=== PATIENT | female | born 1995 | race Hispanic/Latino ===

== ENCOUNTER 2022-03-24 09:02 | Emergency (ER) | payer BC, OTHER ==
--- NOTE | 2022-03-24 10:42 | RAD REPORT ---
EXAM DESCRIPTION: CT - Head Brain Wo Cont - 03/24/2022 10:37 am CLINICAL HISTORY: Dizziness, non-specific Headache, drowsiness COMPARISON: No comparisons TECHNIQUE: All CT scans are performed using dose optimization technique as appropriate and may inclu de automated exposure control or mA/KV adjustment according to patient size. FINDINGS: No intracranial hemorrhage, hydrocephalus or extra-axial fluid collection.No areas of brai n edema or evidence of midline shift. The paranasal sinuses and mastoids are clear. The calvarium is intact. IMPRESSION: No acute intracranial abnormality.
[2022-03-24] MEDS ORDERED: DIAZEPAM 5 MG TABLET ONE (10:57)
[2022-03-24] MEDS ORDERED: MECLIZINE HCL 12.5 MG TAB ONE ×2 (10:58→10:59)
--- NOTE | 2022-03-24 16:34 | RAD REPORT ---
EXAM DESCRIPTION: MRI - Brain Wo Cont - 03/24/2022 4:26 pm CLINICAL HISTORY: Dizziness COMPARISON: Head CT March 24, 2022 TECHNIQUE: Axial, sagittal, and coronal magnetic resonance images of the brain were obtained. FINDINGS: No significant abnormal signal within the brain Diffusion-weighted/ADC mapping does not reveal evidence of acute infarction. The ventricles are normal caliber. An extra-axial fluid collection is not noted. Fluid within the sinuses/mastoids is not seen IMPRESSION: No acute intracranial abnormality noted
--- NOTE | 2022-03-24 16:48 | ER ---
Nurse's Notes [facility] Name: Edith Holcomb Age: 26 yrs Sex: Female : 1995 Arrival Date: 03/24/2022 Time: 09:06 Bed 20 Private MD: Diagnosis: Other peripheral vertigo, unspecified ear Presentation: 03/24 09:14 Chief complaint: Patient states: she started feeling dizzy last night around 2130. ap3 patient states she thought she could go to bed and feel better this morning, however she reports that this morning she still felt dizzy. She also reports nausea and vomiting that began this morning along with weakness. Coronavirus screen: Client presents with at least one sign or symptom that may indicate coronavirus-19. Ebola Screen: No symptoms or risks identified at this time. Initial Sepsis Screen: Does the patient meet any 2 criteria? No. Patient's initial sepsis screen is negative. Does the patient have a suspected source of infection? No. Patient's initial sepsis screen is negative. Risk Assessment: Do you want to hurt yourself or someone else? Patient reports no desire to harm self or others. Onset of symptoms was March 23, 2022 at 21:30. 09:14 Method Of Arrival: Wheelchair ap3 09:14 Acuity: GIOVANNY 3 ap3 Triage Assessment: 09:19 General: Appears uncomfortable, Behavior is calm, cooperative, appropriate for age. ap3 General: Reports. Pain: Complains of pain in hip and lower back. Neuro: Level of Consciousness is awake, alert, obeys commands, Oriented to person, place, time, situation, Speech is normal. Neuro: Reports dizziness, weakness. Cardiovascular: Patient's skin is warm and dry. Respiratory: Airway is patent Respiratory effort is even, unlabored, Respiratory pattern is regular, symmetrical. GI: Reports nausea, vomiting. 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 - Social history:: Smoking status: Patient denies any tobacco usage or history of. Patient uses street drugs, marijuana. Screenin:20 Abuse screen: Denies threats or abuse. Nutritional screening: No deficits noted. ap3 Tuberculosis screening: No symptoms or risk factors identified. 17:20 Fall Risk None identified. iw Assessment: 09:33 General: Appears comfortable, Behavior is calm, cooperative. ha1 09:33 Pain: Denies pain. Neuro: Level of Consciousness is Oriented to Senior Instructor are equal ha1 bilaterally Moves all extremities. Gait is steady, Speech is normal, Pupils are PERRLA, Reports dizziness, after getting out of car this morning. was able to get to a sitting position. the dizziness has been going on since last night. . 09:33 Cardiovascular: Heart tones S1 S2 present. ha1 09:33 Respiratory: Airway is patent Respiratory effort is even, unlabored, Respiratory ha1 pattern is regular, symmetrical. GI: No signs and/or symptoms were reported involving the gastrointestinal system. : No signs and/or symptoms were reported regarding the genitourinary system. EENT: No signs and/or symptoms were reported regarding the EENT system. Derm: Skin is intact, is healthy with good turgor, Skin is pink, warm \T\ dry. Musculoskeletal: Range of motion: intact in all extremities. 10:30 Reassessment: Patient and/or family updated on plan of care and expected duration. Pain ha1 level reassessed. at bedside. 11:30 Reassessment: Patient and/or family updated on plan of care and expected duration. Pain ha1 level reassessed. Patient is alert, oriented x 3, equal unlabored respirations, skin warm/dry/pink. nausea has been decreased. 12:30 Reassessment: Patient and/or family updated on plan of care and expected duration. Pain ha1 level reassessed. Patient is alert, oriented x 3, equal unlabored respirations, skin warm/dry/pink. 13:30 Reassessment: Patient and/or family updated on plan of care and expected duration. Pain ha1 level reassessed. Patient states feeling better. Patient states symptoms have improved. 14:30 Reassessment: Patient and/or family updated on plan of care and expected duration. Pain ha1 level reassessed. Patient is alert, oriented x 3, equal unlabored respirations, skin warm/dry/pink. family member at bedside. awaiting on MRI. 15:30 Reassessment: Patient and/or family updated on plan of care and expected duration. Pain ha1 level reassessed. Patient is alert, oriented x 3, equal unlabored respirations, skin warm/dry/pink. 15:54 Reassessment: Pt sleeping, awaiting MRI. . aa5 16:48 Reassessment: Patient and/or family updated on plan of care and expected duration. Pain ha1 level reassessed. Patient is alert, oriented x 3, equal unlabored respirations, skin warm/dry/pink. Vital Signs: 09:14 BP 147 / 98; Pulse 72; Resp 18; Temp 97.9; Pulse Ox 98% ; Weight 93.44 kg; Height 5 ft. ap3 4 in. (162.56 cm); 10:20 BP 136 / 94; Pulse 72; Resp 16 S; Temp 98.2; Pulse Ox 100% on R/A; Weight 93.44 kg; ha1 Pain 0/10; 11:35 BP 141 / 87; Pulse 73; Resp 16 S; Pulse Ox 100% on R/A; ha1 12:25 BP 131 / 92; Pulse 65; Resp 18 S; Pulse Ox 100% on R/A; Pain 0/10; ha1 13:24 BP 132 / 90; Pulse 65; Resp 17 S; Pulse Ox 100% on R/A; Pain 0/10; ha1 14:15 BP 121 / 80; Pulse 69; Resp 16 S; Pulse Ox 100% on R/A; ha1 15:10 BP 130 / 90; Pulse 82; Resp 15 S; Pulse Ox 100% on R/A; ha1 15:14 BP 128 / 89; Pulse 83; Resp 16 S; Pulse Ox 100% on R/A; Pain 0/10; ha1 16:05 BP 129 / 86; Pulse 82; Resp 16 S; Pulse Ox 100% on R/A; ha1 17:00 BP 130 / 90; Pulse 80; Resp 15 S; Pulse Ox 100% on R/A; ha1 10:20 Body Mass Index 35.36 (93.44 kg, 162.56 cm) ha1 ED Course: 09:06 Patient arrived in ED. am2 09:11 Sarath Whipple MD is Attending Physician. kdr 09:16 Triage completed. ap3 09:20 Arm band placed on left wrist. ap3 09:33 Patient has correct armband on for positive identification. Bed in low position. Call ha1 light in reach. Side rails up X 1. Door closed. Lights dimmed. Warm blanket given. 09:54 Gay Calvert, RN is Primary Nurse. ha1 10:38 CT Head Brain wo Cont In Process Unspecified. EDMS 16:17 MRI - Brain Wo Cont In Process Unspecified. EDMS 17:19 No provider procedures requiring assistance completed. Patient did not have IV access iw during this emergency room visit. Administered Medications: 11:05 Drug: Meclizine 25 mg Route: PO; ha1 12:16 Follow up: Response: No adverse reaction; Nausea is decreased ha1 11:05 Drug: Valium (diazepam) 5 mg Route: PO; ha1 12:15 Follow up: Response: No adverse reaction; Anxiety decreased; RASS: Alert and Calm (0) ha1 Medication: 17:20 VIS not applicable for this client. iw Outcome: 16:47 Discharge ordered by MD. kdr 17:20 Discharged to home ambulatory, with family. iw 17:20 Condition: good 17:20 Discharge instructions given to patient, family, Instructed on discharge instructions, follow up and referral plans. medication usage, Demonstrated understanding of instructions, follow-up care, medications, Prescriptions given X 1. 17:20 Patient left the ED. iw Signatures: Dispatcher [employer] EDMS Sarath Whipple MD MD kdr Lizbeth Lombardi RN RN iw Laura Quigley RN RN aa5 Kellie Cline am2 Kellie Herrera RN RN ap3 Gay Calvert RN RN ha1 Corrections: (The following items were deleted from the chart) 11:29 09:33 Neuro: Level of Consciousness is Oriented to Senior Instructor are equal bilaterally Moves ha1 all extremities. Gait is steady, Speech is normal, Pupils are PERRLA, Reports dizziness, after getting out of car this morning. was able to get seated. . ha1 12:25 11:50 Reassessment: Patient and/or family updated on plan of care and expected ha1 duration. Pain level reassessed. Patient is alert, oriented x 3, equal unlabored respirations, skin warm/dry/pink. nausea has been decreased. ha1
--- NOTE | 2022-03-24 16:48 | EDPHYS ---
Physician Documentation [facility] Name: Edith Holcomb Age: 26 yrs Sex: Female : 1995 Arrival Date: 03/24/2022 Time: 09:06 Bed 20 Private MD: ED Physician Sarath Whipple HPI: 03/24 17:28 This 26 yrs old Female presents to ER via Wheelchair with complaints of kdr Dizziness. 17:28 The patient presents with dizziness, generalized weakness, lightheadedness, feeling off kdr balance, a sense of confusion, sense of spinning, vertigo. Onset: The symptoms/episode began/occurred last night. Context: occurred at home, occurred while the patient was at rest. Modifying factors: The symptoms are alleviated by nothing, the symptoms are aggravated by movement of head, standing up, changing position. Associated signs and symptoms: Pertinent positives: ataxia, nausea, numbness. Severity of symptoms: At their worst the symptoms were mild moderate just prior to arrival, in the emergency department the symptoms are unchanged. Patient's baseline: Neuro: alert and fully oriented, Motor: no deficits, Ambulation: walks without assistance, Speech: normal. The patient has not experienced similar symptoms in the past. Patient states that around 930 last night, she began to feel little dizzy. She subsequently went to bed hoping that she did feel better when she awakened in the morning. Unfortunately and this morning she still felt dizzy. As the day progressed, she continued with nausea and some vomiting that was the result of the worsening dizziness. She was especially weak and dizzy when walking. She felt like she could not walk in a straight line. She has not had this kind of issue before. She is otherwise in generally good health. She is not a smoker nor does she have any other risk factors (including hormone therapy and (that may precipitate a stroke.. 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 - Social history:: Smoking status: Patient denies any tobacco usage or history of. Patient uses street drugs, marijuana. ROS: 17:28 Constitutional: Negative for fever, chills, and weight loss, Eyes: Negative for injury, kdr pain, redness, and discharge, ENT: Negative for injury, pain, and discharge, Neck: Negative for injury, pain, and swelling, Cardiovascular: Negative for chest pain, palpitations, and edema, Respiratory: Negative for shortness of breath, cough, wheezing, and pleuritic chest pain, Abdomen/GI: Negative for abdominal pain, nausea, vomiting, diarrhea, and constipation, Back: Negative for injury and pain, MS/Extremity: Negative for injury and deformity, Skin: Negative for injury, rash, and discoloration, Psych: Negative for depression, anxiety, suicide ideation, homicidal ideation, and hallucinations, Allergy/Immunology: Negative for hives, rash, and allergies, Endocrine: Negative for neck swelling, polydipsia, polyuria, polyphagia, and marked weight changes, Hematologic/Lymphatic: Negative for swollen nodes, abnormal bleeding, and unusual bruising. 17:28 Neuro: Positive for altered mental status, dizziness. Exam: 17:28 Constitutional: This is a well developed, well nourished patient who is awake, alert, kdr and in no acute distress. Head/Face: Normocephalic, atraumatic. Eyes: Pupils equal round and reactive to light, extra-ocular motions intact. Lids and lashes normal. Conjunctiva and sclera are non-icteric and not injected. Cornea within normal limits. Periorbital areas with no swelling, redness, or edema. ENT: Nares patent. No nasal discharge, no septal abnormalities noted. Tympanic membranes are normal and external auditory canals are clear. Oropharynx with no redness, swelling, or masses, exudates, or evidence of obstruction, uvula midline. Mucous membranes moist. Chest/axilla: Normal chest wall appearance and motion. Nontender with no deformity. No lesions are appreciated. Cardiovascular: Regular rate and rhythm with a normal S1 and S2. No gallops, murmurs, or rubs. Normal PMI, no JVD. No pulse deficits. Respiratory: Lungs have equal breath sounds bilaterally, clear to auscultation and percussion. No rales, rhonchi or wheezes noted. No increased work of breathing, no retractions or nasal flaring. Abdomen/GI: Soft, non-tender, with normal bowel sounds. No distension or tympany. No guarding or rebound. No evidence of tenderness throughout. Back: No spinal tenderness. No costovertebral tenderness. Full range of motion. Skin: Warm, dry with normal turgor. Normal color with no rashes, no lesions, and no evidence of cellulitis. MS/ Extremity: Pulses equal, no cyanosis. Neurovascular intact. Full, normal range of motion. Psych: Awake, alert, with orientation to person, place and time. Behavior, mood, and affect are within normal limits. 17:28 Neuro: Orientation: is normal, Memory: Cranial nerves: no acute changes, Cerebellar function: is grossly normal, Motor: Sensation: is normal, seizure activity, is not displayed by the patient. Vital Signs: 09:14 BP 147 / 98; Pulse 72; Resp 18; Temp 97.9; Pulse Ox 98% ; Weight 93.44 kg; Height 5 ft. ap3 4 in. (162.56 cm); 10:20 BP 136 / 94; Pulse 72; Resp 16 S; Temp 98.2; Pulse Ox 100% on R/A; Weight 93.44 kg; ha1 Pain 0/10; 11:35 BP 141 / 87; Pulse 73; Resp 16 S; Pulse Ox 100% on R/A; ha1 12:25 BP 131 / 92; Pulse 65; Resp 18 S; Pulse Ox 100% on R/A; Pain 0/10; ha1 13:24 BP 132 / 90; Pulse 65; Resp 17 S; Pulse Ox 100% on R/A; Pain 0/10; ha1 14:15 BP 121 / 80; Pulse 69; Resp 16 S; Pulse Ox 100% on R/A; ha1 15:10 BP 130 / 90; Pulse 82; Resp 15 S; Pulse Ox 100% on R/A; ha1 15:14 BP 128 / 89; Pulse 83; Resp 16 S; Pulse Ox 100% on R/A; Pain 0/10; ha1 16:05 BP 129 / 86; Pulse 82; Resp 16 S; Pulse Ox 100% on R/A; ha1 17:00 BP 130 / 90; Pulse 80; Resp 15 S; Pulse Ox 100% on R/A; ha1 10:20 Body Mass Index 35.36 (93.44 kg, 162.56 cm) ha1 MDM: 16:47 Patient medically screened. kdr 17:32 Data reviewed: vital signs, nurses notes, lab test result(s), radiologic studies. kdr Counseling: I had a detailed discussion with the patient and/or guardian regarding: the historical points, exam findings, and any diagnostic results supporting the discharge/admit diagnosis, lab results, radiology results, the need for outpatient follow up. 03/24 10:19 Order name: CT Head Brain wo Cont; Complete Time: 12:23 kdr 03/24 13:55 Order name: MRI - Brain Wo Cont; Complete Time: 16:43 kdr Administered Medications: 11:05 Drug: Meclizine 25 mg Route: PO; ha1 12:16 Follow up: Response: No adverse reaction; Nausea is decreased ha1 11:05 Drug: Valium (diazepam) 5 mg Route: PO; ha1 12:15 Follow up: Response: No adverse reaction; Anxiety decreased; RASS: Alert and Calm (0) ha1 Disposition Summary: 03/24/22 16:47 Discharge Ordered Location: Home kdr Problem: new kdr Symptoms: have improved kdr Condition: Stable kdr Diagnosis - Other peripheral vertigo, unspecified ear kdr Followup: kdr - With: Private Physician - When: 2 - 3 days - Reason: If symptoms return, Further diagnostic work-up, Recheck today's complaints, Continuance of care, Re-evaluation by your physician Discharge Instructions: - Discharge Summary Sheet kdr - Vertigo, [id number] kdr - Dizziness, [id number] kdr Forms: - Medication Reconciliation Form kdr - Thank You Letter kdr - Work release form iw Prescriptions: - Meclizine 25 mg Oral Tablet - take 1 tablet by ORAL route every 8 hours As needed; 30 tablet; Refills: 0, kdr Product Selection Permitted Signatures: Dispatcher [employer] Sarath Amezcua MD MD kdr Kellie Herrera RN RN ap3 Gay Calvert RN RN ha1
[2022-03-24 17:58] VITALS: TEMP 98.2; O2SAT 100
[2022-03-24 18:17] VITALS: BP 130/90
== END 2022-03-24 17:20 | disposition home or self-care (01) ==
LOC: ER 09:02
DX: H81.399 Other peripheral vertigo, unspecified ear (principal); Z88.5 Allergy status to narcotic agent
CPT/HCPCS: 70450; 70551; 99283; J8597 ×2

== ENCOUNTER 2022-08-21 23:24 | Emergency (ER) | payer OTHER ==
--- OUTSIDE RECORDS SUMMARY | 2022-08-21 23:29 | XMS REPORT | Continuity of Care Document ---
:1995 Author Organization [facility] t Address [address] [place] [address] Care Team Providers Name Role Phone Emanuel Stanford Primary Care Physician Freddy Shah Attending Clinician Unavailable Sabrina Tomlinson Attending Clinician Unavailable Sammy Disla Attending Clinician SAMMY ROLON Attending Clinician Unavailable George Flores Admitting Clinician Unavailable Sabrina Tomlinson Admitting Clinician Unavailable Physician, No Primary or Family Admitting Clinician Unavaila ble Payers Payer Name Policy Type Policy Number Effective Date Expiration Date S ource Problems Condition Condition Condition Status Onset Resolution Last Treating Co mments Source Name Details Category Date Date Treatment Clinician Date Morbid Morbid Disease Active Univers obesity obesity 2-13 [place] index 00 [place] dical of of Branch 40.0-49.9 40.0-49.9 Encounter Encounter Disease Active Uni vers for tubal for tubal 2-13 ity of ligation ligation 00:00: [place] 00 Medical Branch Allergies, Adverse Reactions, Alerts Allergy Allergy Status Severity Reaction(s) Onset Inactive Treating Comm ents Source Name Type Date Date Clinician tramadol DA Active [facility] VOMITING 2021-08 [facility] - Clear 00:00: [address] tramadol DA Active [facility] VOMITING [facility] 7-02 Clear 00:00: [place] 00 [facility] Tramadol Propensi Active Nausea Severe Univer s ty to and/or 09-28 nausea ity of adverse Vomiting 00:00: and [place] reaction 00 vomiting Medica l s Branch TRAMADOL DRUG Active N/V Univers INGREDI 09-28 ity of 00:00: [place] 00 Medical [place] Social History Social Habit Start Date Stop Date Quantity Comments Source Exposure to 2022-04-11 2022-04-21 Not sure [facility] [place] [facility]-CoV-2 00:00:00 07:58:00 [place] [facility] (event) Branch Alcohol intake 2022-04-21 2022-04-21 Current University 00:00:00 00:00:00 non-drinker of [facility] alcohol (finding) Branch Tobacco use and 2017-09-28 2017-09-28 Smokeless tobacco Un iversity of exposure 00:00:00 00:00:00 non-user [facility] Sex Assigned At [birth year] [facility] y of 00:00:00 00:00:00 [facility] Smoking Status Start Date Stop Date Source Never smoked tobacco [facility] Medications Ordered Filled Start Stop Current Ordering Indication Dosage Frequency Signature Comments Components Source Medication Medication Date Date Medication? Clinician (SIG) Name Name predniSONE 2021- 60mg 60 mg, Univ ers (DELTASONE) 04-21 Oral, ity of tablet 60 14:30: 13:43 [place]CE, 1 [place] mg [place] :00 dose, On Medical 04/21/22 Branch at 0930, [place] HYDROcodone 2021- No 1{tbl} 1 tablet, Univers -acetaminop 04-21 Oral, ity of hen (NORCO) 14:30: 13:43 [place] 00 :00 dose, On Medica l tablet 1 04/21/22 Branc h tablet at 0930, Routine naproxen Yes [id number] 500mg Take 1 Un ganga (NAPROSYN) 04-21 tablet by ity of 500 mg 00:00: mouth in [place] tablet 00 the Medical morning Branch and 1 tablet in the evening. Take with meals. predniSONE Yes [id number] 60mg Take 3 U nivers 20 mg - tablets by ity of tablet 00:00: mouth [place] 00 every Medical morning. Branch acetaminoph 2021- No [id number] 1{tbl} Take 1 U nivers en-codeine 04-2110 tablet by ity of (TYLENOL-CO 00:00: 04:59 [place] DEINE #4) 00 :00 every 4 Medical 300-60 mg (four) Branch tablet hours as needed for Pain for up to 7 days. Indication s: acute pain methylPREDN 2021- No 84mg Take 21 Un ganga ISolone 10-11 tablets by ity o f (MEDROL, 00:00: 00:00 mouth [place] NATHALIA,) 4 mg 00 :00 SEE-INSTRU Med ical tablets CTIONS. Branch follow package directions Yes 2{tbl} Take 2 Unive rs multivitami 2-13 tablets by it y of n ( 10:49: mouth [place] VITAMIN) 52 daily. Medical tablet Branch HYDROcodone Yes 1{tbl} Take 1 Un ganga -acetaminop 2-13 tablet by ity of hen (NORCO) 00:00: mouth [place] 10-325 mg 00 every 6 Medical tablet (six) Branch hours as needed for Pain (scale 1-3), Pain (scale 4-6) or Pain (scale 7-10). ibuprofen Yes 800mg Take 1 Unive rs 800 mg 2-13 tablet by ity of tablet 00:00: mouth [place] 00 every 8 Medical (eight) Branch hours as needed for Pain (scale 1-3). Vital Signs Vital Name Observation Time Observation Value Comments Source Systolic blood 2022-04-21 13:01:00 148 mm[Hg] Univer sity of pressure [facility] Diastolic blood 2022-04-21 13:01:00 105 mm[Hg] [facility] Heart rate 2022-04-21 13:01:00 88 /min [facility] Body temperature 2022-04-21 13:01:00 37.17 Miguel Angel [facility] Respiratory rate 2022-04-21 13:01:00 16 /min [facility] Body height 2022-04-21 13:01:00 162.6 cm [facility] Body weight 2022-04-21 13:01:00 91.173 kg [facility] BMI 2022-04-21 13:01:00 34.50 kg/m2 [facility] Oxygen saturation in 2022-04-21 13:01:00 100 /min University Arterial blood by [facility] Pulse oximetry Branch Procedures Procedure Date / Time Performed Performing Clinician Caio mckeon [id number] 2022-08-02 00:00:00 MIRWA [facility] [id number] 2022-07-20 00:00:00 RATAL01 [facility] [id number] 2022-07-20 00:00:00 RATAL01 [facility] [id number] 2022-07-20 00:00:00 RATAL01 [facility] [id number] 2022-07-20 00:00:00 RATAL01 [facility] [id number] 2022-07-10 00:00:00 RATAL01 [facility] [id number] 2022-07-10 00:00:00 RATAL01 [facility] [id number] 2022-07-10 00:00:00 RATAL01 [facility] [id number] 2022-07-10 00:00:00 RATAL01 [facility] [id number] 2022-07-10 00:00:00 RATAL01 [facility] [id number] 2022-07-10 00:00:00 RATAL01 [facility] [id number] 2022-07-10 00:00:00 RATAL01 [facility] [id number] 2022-07-10 00:00:00 RATAL01 [facility] [id number] 2022-07-10 00:00:00 RATAL01 [facility] [id number] 2022-07-10 00:00:00 RATAL01 [facility] [id number] 2022-07-10 00:00:00 RATAL01 [facility] POCT TEST 2022-04-21 13:34:00 Sammy Rolon [facility] CONSENT/REFUSAL FOR 2022-04-21 12:48:45 Doctor Unassigned, No Un [facility] DIAGNOSIS AND Name [facility] TREATMENT Encounters Start End Encounter Admission Attending Care Care Encounter Source Date/Time Date/Time Type Type Clinicians Facility Department ID 2022-07-19 2022-08-03 Inpatient ALEX MejiaCL INTE [id number] [facility] 21:27:00 14:46:00 Freddy 67 [facility] 2022-07-10 2022-07-12 Inpatient ALEX YarbroughCL MAS [id number] [facility] 05:29:00 15:27:00 Freddy 65 [facility] 2022-05-09 2022-05-09 Outpatient ALEX LopezCL RMRI [id number] [facility] 11:34:00 11:34:00 Sabrina 77 [facility] 2022-04-21 2022-04-21 Emergency [facility] [id number] Univers 08:02:00 08:45:00 Sammy Dyer [facility] [id number] [facility] [id number] [facility] [id number] [place] [id number] Branch 2022-04-21 2022-04-21 Emergency X GISELA ROLON ERT [id number] Univers 08:02:00 08:45:00 SAMMY flores [facility] Results Test Description Test Time Test Comments Results Result Comments Source COMPREHENSIVE METABOLIC PANEL 2022-08-03 06:10:00 Test Item Value Reference Range Interpretation Comme nts SODIUM (test code = NA) 140 mEq/L 134-147 N POTASSIUM (test code = K) 4.3 mEq/L 3.4-5.0 N CHLORIDE (test code = CL) 106 mEq/L 100-108 N CARBON DIOXIDE (test code = 26 mEq/l 21-33 N CO2) ANION GAP (test code = GAP) 12 0-20 N GLUCOSE (test code = GLU) 112 mg/dL 70-110 H BLOOD UREA NITROGEN (test code 11 mg/dL 7-18 N = BUN) GLOMERULAR FILTRATION RATE 120.7 110-120 H T he Glomerular Filtration Rate is (test code = GFR) a calculat ed parameterbased on serum Creatinin e, patient age and sex. GFR values less than 60 mL/min/1.73 squ are meters are indicative ofCh ronic Kidney Disease. Values less than 15 mL/min/1.73squa re meters indicate Kidney failure. The calculation forGFR is based on the CKD-EPI (2020) calculat ion. This formulais race indifferent and is the recommended formula for GFRby the National [facility] for Adults.The GFR will not calculate if th e sex is unknown or if thepatien t's age is <18 years. CREATININE (test code = CREAT) 0.7 mg/dL 0.6-1.3 N TOTAL PROTEIN (test code = 7.1 g/dL 6.4-8.2 N PROT) ALBUMIN (test code = ALB) 2.80 g/dL 3.4-5.0 L CALCIUM (test code = CA) 9.1 mg/dL 8.0-10.5 N BILIRUBIN TOTAL (test code = 0.30 mg/dL 0.0-1.0 N BILT) SGOT/AST (test code = AST) 10 IUnit/L 15-37 L SGPT/ALT (test code = ALT) 12 IUnit/L 30-65 L ALKALINE PHOSPHATASE TOTAL 83 IUnit/L 20-125 N (test code = ALKP) [id number] 06:10:00 Test Item Value Reference Range Interpretation Comments PHOSPHOROUS (test code = PHOS) 3.0 MG/DL 2.5-4.9 N [id number] 06:10:00 Test Item Value Reference Range Interpretation Comments MAGNESIUM (test code = MAG) 1.90 mg/dL 1.80-2.40 N CALCIUM [id number] 06:10:00 Test Item Value Reference Range Interpretation Comments CALCIUM IONIZED (test code = ANNA) 1.19 MMOL/L 1.09-1.30 N CBC W/AUTO [id number] 05:56:00 Test Item Value Reference Range Interpretation Comments WHITE BLOOD CELL (test code = 10.2 x10 3/uL 4.5-11.0 N WBC) RED BLOOD CELL (test code = 3.19 x10 6/uL 3.54-5.02 L RBC) HEMOGLOBIN (test code = HGB) 9.4 g/dL 11.0-15.0 L HEMATOCRIT (test code = HCT) 29.7 % 33.0-45.0 L MEAN CELL VOLUME (test code = 93.1 fL 81.0-99.0 N MCV) MEAN CELL HGB (test code = MCH) 29.5 pg 27.0-33.0 N MEAN CELL HGB CONCETRATION 31.6 g/dL 33.0-37.0 L (test code = MCHC) RED CELL DISTRIBUTION WIDTH CV 14.6 % 11.5-14.5 H (test code = RDW) RED CELL DISTRIBUTION WIDTH SD 49.0 fL 37.0-54.0 N (test code = RDW-SD) PLATELET COUNT (test code = 533 x10 3/uL 150-400 H PLT) MEAN PLATELET VOLUME (test code 8.9 fL 7.0-9.0 N = MPV) NEUTROPHIL % (test code = NT%) 74.3 % 56.0-77.0 N IMMATURE GRANULOCYTE % (test 1.2 % 0.0-2.0 N code = IG%) LYMPHOCYTE % (test code = LY%) 17.6 % 14.0-32.0 N MONOCYTE % (test code = MO%) 6.0 % 4.8-9.0 N EOSINOPHIL % (test code = EO%) 0.4 % 0.3-3.7 N BASOPHIL % (test code = BA%) 0.5 % 0.0-2.0 N NUCLEATED RBC % (test code = 0.0 % 0-0 N NRBC%) NEUTROPHIL # (test code = NT#) 7.60 x10 3/uL 2.0-7.6 N IMMATURE GRANULOCYTE # (test 0.12 x10 3/uL 0.00-0.03 H code = IG#) LYMPHOCYTE # (test code = LY#) 1.80 x10 3/uL 1.0-3.8 N MONOCYTE # (test code = MO#) 0.61 x10 3/uL 0.1-0.8 N EOSINOPHIL # (test code = EO#) 0.04 x10 3/uL 0.0-0.2 N BASOPHIL # (test code = BA#) 0.05 x10 3/uL 0.0-0.2 N NUCLEATED RBC # (test code = 0.00 x10 3/uL 0.0-0.1 N NRBC#) MANUAL DIFF REQUIRED (test code NO = MDIFF) COMPREHENSIVE METABOLIC [id number] 05:13:00 Test Item Value Reference Range Interpretation Comments SODIUM (test code = 138 mEq/L 134-147 N NA) POTASSIUM (test code 4.7 mEq/L 3.4-5.0 N = K) CHLORIDE (test code 105 mEq/L 100-108 N = CL) CARBON DIOXIDE (test 24 mEq/l 21-33 N code = CO2) ANION GAP (test code 14 0-20 N = GAP) GLUCOSE (test code = 111 mg/dL 70-110 H GLU) BLOOD UREA NITROGEN 10 mg/dL 7-18 N (test code = BUN) GLOMERULAR 120.7 110-120 H The Glomerular FILTRATION RATE Filtration R ate is a (test code = GFR) calculated parameterbased on serum Creatinine, pat ient age and sex. GFR va luesless than 60 mL/min/ 1.73 square meters a re indicative ofCh ronic Kidney Disease. Values less than 15 mL/min/1.73squa re meters indicate Kidney failure. The calculation for GFR is based on the CK D-EPI (2020) calculat ion. This formulais race indifferent and is the recommended for chavez for GFRby the Natio nal Kidney Foundati on for Adults.The GFR will not calculate if th e sex is unknown or if thepatient's ag e is <18 years. CREATININE (test 0.7 mg/dL 0.6-1.3 N code = CREAT) TOTAL PROTEIN (test 6.9 g/dL 6.4-8.2 N code = PROT) ALBUMIN (test code = 2.70 g/dL 3.4-5.0 L ALB) CALCIUM (test code = 9.0 mg/dL 8.0-10.5 N CA) BILIRUBIN TOTAL 0.40 mg/dL 0.0-1.0 N (test code = BILT) SGOT/AST (test code 13 IUnit/L 15-37 L = AST) SGPT/ALT (test code 12 IUnit/L 30-65 L = ALT) ALKALINE PHOSPHATASE 81 IUnit/L 20-125 N TOTAL (test code = ALKP) [id number] 05:13:00 Test Item Value Reference Range Interpretation Comments PHOSPHOROUS (test code = PHOS) 3.3 MG/DL 2.5-4.9 N [id number] 05:13:00 Test Item Value Reference Range Interpretation Comments MAGNESIUM (test code = MAG) 2.04 mg/dL 1.80-2.40 N CALCIUM [id number] 05:13:00 Test Item Value Reference Range Interpretation Comments CALCIUM IONIZED (test code = ANNA) 1.13 MMOL/L 1.09-1.30 N CBC W/AUTO [id number] 04:41:00 Test Item Value Reference Range Interpretation Comments WHITE BLOOD CELL (test code = 10.8 x10 3/uL 4.5-11.0 N WBC) RED BLOOD CELL (test code = 3.00 x10 6/uL 3.54-5.02 L RBC) HEMOGLOBIN (test code = HGB) 9.0 g/dL 11.0-15.0 L HEMATOCRIT (test code = HCT) 27.2 % 33.0-45.0 L MEAN CELL VOLUME (test code = 90.7 fL 81.0-99.0 N MCV) MEAN CELL HGB (test code = MCH) 30.0 pg 27.0-33.0 N MEAN CELL HGB CONCETRATION 33.1 g/dL 33.0-37.0 N (test code = MCHC) RED CELL DISTRIBUTION WIDTH CV 14.6 % 11.5-14.5 H (test code = RDW) RED CELL DISTRIBUTION WIDTH SD 47.7 fL 37.0-54.0 N (test code = RDW-SD) PLATELET COUNT (test code = 469 x10 3/uL 150-400 H PLT) MEAN PLATELET VOLUME (test code 9.1 fL 7.0-9.0 H = MPV) NEUTROPHIL % (test code = NT%) 82.0 % 56.0-77.0 H IMMATURE GRANULOCYTE % (test 1.4 % 0.0-2.0 N code = IG%) LYMPHOCYTE % (test code = LY%) 11.1 % 14.0-32.0 L MONOCYTE % (test code = MO%) 4.6 % 4.8-9.0 L EOSINOPHIL % (test code = EO%) 0.5 % 0.3-3.7 N BASOPHIL % (test code = BA%) 0.4 % 0.0-2.0 N NUCLEATED RBC % (test code = 0.0 % 0-0 N NRBC%) NEUTROPHIL # (test code = NT#) 8.83 x10 3/uL 2.0-7.6 H IMMATURE GRANULOCYTE # (test 0.15 x10 3/uL 0.00-0.03 H code = IG#) LYMPHOCYTE # (test code = LY#) 1.20 x10 3/uL 1.0-3.8 N MONOCYTE # (test code = MO#) 0.50 x10 3/uL 0.1-0.8 N EOSINOPHIL # (test code = EO#) 0.05 x10 3/uL 0.0-0.2 N BASOPHIL # (test code = BA#) 0.04 x10 3/uL 0.0-0.2 N NUCLEATED RBC # (test code = 0.00 x10 3/uL 0.0-0.1 N NRBC#) MANUAL DIFF REQUIRED (test code NO = MDIFF) COMPREHENSIVE METABOLIC [id number] 05:37:00 Test Item Value Reference Range Interpretation Comments SODIUM (test code = 137 mEq/L 134-147 N NA) POTASSIUM (test code 4.4 mEq/L 3.4-5.0 N = K) CHLORIDE (test code 103 mEq/L 100-108 N = CL) CARBON DIOXIDE (test 24 mEq/l 21-33 N code = CO2) ANION GAP (test code 14 0-20 N = GAP) GLUCOSE (test code = 107 mg/dL 70-110 N GLU) BLOOD UREA NITROGEN 8 mg/dL 7-18 N (test code = BUN) GLOMERULAR 120.7 110-120 H The Glomerular FILTRATION RATE Filtration R ate is a (test code = GFR) calculated parameterbased on serum Creatinine, pat ient age and sex. GFR va luesless than 60 mL/min/ 1.73 square meters a re indicative ofCh ronic Kidney Disease. Values less than 15 mL/min/1.73squa re meters indicate Kidney failure. The calculation for GFR is based on the CK D-EPI (2020) calculat ion. This formulais race indifferent and is the recommended for chavez for GFRby the [facility] Kidney Foundati on for Adults.The GFR will not calculate if th e sex is unknown or if thepatient's ag e is <18 years. CREATININE (test 0.7 mg/dL 0.6-1.3 N code = CREAT) TOTAL PROTEIN (test 7.6 g/dL 6.4-8.2 N code = PROT) ALBUMIN (test code = 3.10 g/dL 3.4-5.0 L ALB) CALCIUM (test code = 9.3 mg/dL 8.0-10.5 N CA) BILIRUBIN TOTAL 0.40 mg/dL 0.0-1.0 (test code = BILT) SGOT/AST (test code 15 IUnit/L 15-37 N = AST) SGPT/ALT (test code 19 IUnit/L 30-65 L = ALT) ALKALINE PHOSPHATASE 92 IUnit/L 20-125 N TOTAL (test code = ALKP) [id number] 05:37:00 Test Item Value Reference Range Interpretation Comments PHOSPHOROUS (test code = PHOS) 3.6 MG/DL 2.5-4.9 N [id number] 05:37:00 Test Item Value Reference Range Interpretation Comments MAGNESIUM (test code = MAG) 2.00 mg/dL 1.80-2.40 N CALCIUM [id number] 05:37:00 Test Item Value Reference Range Interpretation Comments CALCIUM IONIZED (test code = ANNA) 1.18 MMOL/L 1.09-1.30 N CBC W/AUTO [id number] 04:56:00 Test Item Value Reference Range Interpretation Comments WHITE BLOOD CELL (test code = 13.2 x10 3/uL 4.5-11.0 H WBC) RED BLOOD CELL (test code = 3.38 x10 6/uL 3.54-5.02 L RBC) HEMOGLOBIN (test code = HGB) 10.0 g/dL 11.0-15.0 L HEMATOCRIT (test code = HCT) 30.8 % 33.0-45.0 L MEAN CELL VOLUME (test code = 91.1 fL 81.0-99.0 N MCV) MEAN CELL HGB (test code = 29.6 pg 27.0-33.0 N MCH) MEAN CELL HGB CONCETRATION 32.5 g/dL 33.0-37.0 L (test code = MCHC) RED CELL DISTRIBUTION WIDTH CV 14.4 % 11.5-14.5 N (test code = RDW) RED CELL DISTRIBUTION WIDTH SD 47.3 fL 37.0-54.0 N (test code = RDW-SD) PLATELET COUNT (test code = 507 x10 3/uL 150-400 H PLT) MEAN PLATELET VOLUME (test 8.9 fL 7.0-9.0 N code = MPV) NEUTROPHIL % (test code = NT%) 82.9 % 56.0-77.0 H IMMATURE GRANULOCYTE % (test 2.2 % 0.0-2.0 H code = IG%) LYMPHOCYTE % (test code = LY%) 10.3 % 14.0-32.0 L MONOCYTE % (test code = MO%) 3.4 % 4.8-9.0 L EOSINOPHIL % (test code = EO%) 0.8 % 0.3-3.7 N BASOPHIL % (test code = BA%) 0.4 % 0.0-2.0 N NUCLEATED RBC % (test code = 0.0 % 0-0 N NRBC%) NEUTROPHIL # (test code = NT#) 10.94 x10 3/uL 2.0-7.6 H IMMATURE GRANULOCYTE # (test 0.29 x10 3/uL 0.00-0.03 H code = IG#) LYMPHOCYTE # (test code = LY#) 1.36 x10 3/uL 1.0-3.8 N MONOCYTE # (test code = MO#) 0.45 x10 3/uL 0.1-0.8 N EOSINOPHIL # (test code = EO#) 0.10 x10 3/uL 0.0-0.2 N BASOPHIL # (test code = BA#) 0.05 x10 3/uL 0.0-0.2 N NUCLEATED RBC # (test code = 0.00 x10 3/uL 0.0-0.1 N NRBC#) MANUAL DIFF REQUIRED (test NO code = MDIFF) AB HERPES SIMPLEX 1 2 [id number] 01:07:00 Test Item Value Reference Range Interpretation Comments CSF HSV1 PCR (test Negative Negative code = [id number]) CSF HSV2 PCR (test Negative Negative Performed At: [facility] code = [id number]) [facility] P [id number] [address], [place] [id number] Earle S MD Ph:[phone] 3 - DUP VEIN [id number] 00:00:00 [facility] 1995 Sex: F Name: RAYMOND HUBBARD [facility] : 1995 Age/S: 27 / F [address] [place] [address] Unit #: [id number] Loc: [place] [address] Phys: Lashonda Ruiz MD Acct: [id number] Dis Date: Status: ADM IN PHONE #: [phone] Exam Date: 08/01/2022 0646 FAX #: [phone] Reason: NEW ONSET RASH EXAMS: CPT CODE: [id number] DUP VEIN SALOMÓN [id number] PROCEDURE INFORMATION: Exam: US Duplex Upper Extremity Veins Exam dateand time: 08/01/2022 6:28 AM Age: 27 years old Clinical indication: Other: Arm rash; Additional info: New onset rash TECHNIQUE: Imaging protocol: Real-time Duplex ultrasound of the Upper Extremities with 2-D velasquez scale, color Doppler flow and spectral waveform analysis with image documentation. Complete exam focused on the bilateral upper extremity veins. COMPARISON: CTA CHEST FOR PE 07/20/2022 2:46 AM FINDINGS: Right deep veins: Unremarkable. Axillary and brachial veins are patent throughout without thrombus. Normal Doppler waveforms. Normal compressibility and/or augmentation response. Visualized internal jugular and subclavian veins are patent. Right superficial veins: There is superficial thrombosis of the right cephalic vein. Left deep veins: Unremarkable. Axillary and brachial veins are patent throughout without thrombus. Normal Doppler waveforms. Normal compressibility and/or augmentation response. Visualized internal jugular and subclavian veins are patent. Left superficial veins: There is superficial thrombosis of the left cephalic vein. Soft tissues: Unremarkable. IMPRESSION: Superficial thrombosis of the bilateral cephalic vein. at 0654 Reported and signed by: Emmanuel Guzmán M.D CC: George Flores; Freddy Shah DO; Sabrina Tomlinson DO; Lashonda Ruiz MD Technologist: Delicia Rocha RDMS(AB)(OB) Trnscb Date/Time: 08/01/2022(653) [email or web address] Orig Print D/T: S: 08/01/2022 (653) Probe: PAGE 1 Signed ReportAB HERPES SIMPLEX 1 2 CSF 2022-07-31 13:58:00 Test Item Value Reference Range Interpretation Comments CSF HSV1 PCR TEST NOT See_Comment Test not perfor med. (test code = PERFORMED Deterioration o ccurred [id number]) during specimenhandlin g.Notified Yasmine Carrillo at a ccount 07/31/2022. [Au tomated message] The sy stem which generated this result transmitted ref erence range: (). The reference range was not u sed to interpret this result as normal/abnormal . CSF HSV2 PCR TEST NOT See_Comment Test not (test code = PERFORMED performedPerfor med At: [id number]) CETWE [facility] P [id number] [address] [place], [place] [id number] Earle S MD Ph:[phone] [Automated mess age] The system which ge nerated this result tra nsmitted reference range : (). The reference range was not used to interpr et this result as normal/abnormal . COMPREHENSIVE METABOLIC [id number] 05:23:00 Test Item Value Reference Range Interpretation Comments SODIUM (test code = 139 mEq/L 134-147 N NA) POTASSIUM (test code 4.6 mEq/L 3.4-5.0 N = K) CHLORIDE (test code 105 mEq/L 100-108 N = CL) CARBON DIOXIDE (test 24 mEq/l 21-33 N code = CO2) ANION GAP (test code 14 0-20 N = GAP) GLUCOSE (test code = 93 mg/dL 70-110 N GLU) BLOOD UREA NITROGEN 10 mg/dL 7-18 N (test code = BUN) GLOMERULAR 120.7 110-120 H The Glomerular FILTRATION RATE Filtration R ate is a (test code = GFR) calculated parameterbased on serum Creatinine, pat ient age and sex. GFR va luesless than 60 mL/min/ 1.73 square meters a re indicative ofCh ronic Kidney Disease. Values less than 15 mL/min/1.73squa re meters indicate Kidney failure. The calculation for GFR is based on the CK D-EPI (2020) calculat ion. This formulais race indifferent and is the recommended for chavez for GFRby the Natio nal Kidney Foundati on for Adults.The GFR will not calculate if th e sex is unknown or if thepatient's ag e is <18 years. CREATININE (test 0.7 mg/dL 0.6-1.3 N code = CREAT) TOTAL PROTEIN (test 6.8 g/dL 6.4-8.2 N code = PROT) ALBUMIN (test code = 2.70 g/dL 3.4-5.0 L ALB) CALCIUM (test code = 9.0 mg/dL 8.0-10.5 N CA) BILIRUBIN TOTAL 0.30 mg/dL 0.0-1.0 N (test code = BILT) SGOT/AST (test code 14 IUnit/L 15-37 L = AST) SGPT/ALT (test code 16 IUnit/L 30-65 L = ALT) ALKALINE PHOSPHATASE 88 IUnit/L 20-125 N TOTAL (test code = ALKP) [id number] 05:23:00 Test Item Value Reference Range Interpretation Comments PHOSPHOROUS (test code = PHOS) 4.3 MG/DL 2.5-4.9 N [id number] 05:23:00 Test Item Value Reference Range Interpretation Comments MAGNESIUM (test code = MAG) 2.04 mg/dL 1.80-2.40 N CALCIUM [id number] 05:23:00 Test Item Value Reference Range Interpretation Comments CALCIUM IONIZED (test code = ANNA) 1.16 MMOL/L 1.09-1.30 N CBC W/AUTO [id number] 05:08:00 Test Item Value Reference Range Interpretation Comments WHITE BLOOD CELL (test code = 10.5 x10 3/uL 4.5-11.0 N WBC) RED BLOOD CELL (test code = 3.10 x10 6/uL 3.54-5.02 L RBC) HEMOGLOBIN (test code = HGB) 9.1 g/dL 11.0-15.0 L HEMATOCRIT (test code = HCT) 28.2 % 33.0-45.0 L MEAN CELL VOLUME (test code = 91.0 fL 81.0-99.0 N MCV) MEAN CELL HGB (test code = MCH) 29.4 pg 27.0-33.0 N MEAN CELL HGB CONCETRATION 32.3 g/dL 33.0-37.0 L (test code = MCHC) RED CELL DISTRIBUTION WIDTH CV 14.3 % 11.5-14.5 N (test code = RDW) RED CELL DISTRIBUTION WIDTH SD 46.2 fL 37.0-54.0 N (test code = RDW-SD) PLATELET COUNT (test code = 450 x10 3/uL 150-400 H PLT) MEAN PLATELET VOLUME (test code 8.8 fL 7.0-9.0 N = MPV) NEUTROPHIL % (test code = NT%) 61.6 % 56.0-77.0 N IMMATURE GRANULOCYTE % (test 4.0 % 0.0-2.0 H code = IG%) LYMPHOCYTE % (test code = LY%) 24.1 % 14.0-32.0 N MONOCYTE % (test code = MO%) 8.3 % 4.8-9.0 N EOSINOPHIL % (test code = EO%) 1.6 % 0.3-3.7 N BASOPHIL % (test code = BA%) 0.4 % 0.0-2.0 N NUCLEATED RBC % (test code = 0.0 % 0-0 N NRBC%) NEUTROPHIL # (test code = NT#) 6.49 x10 3/uL 2.0-7.6 N IMMATURE GRANULOCYTE # (test 0.42 x10 3/uL 0.00-0.03 H code = IG#) LYMPHOCYTE # (test code = LY#) 2.54 x10 3/uL 1.0-3.8 N MONOCYTE # (test code = MO#) 0.88 x10 3/uL 0.1-0.8 H EOSINOPHIL # (test code = EO#) 0.17 x10 3/uL 0.0-0.2 N BASOPHIL # (test code = BA#) 0.04 x10 3/uL 0.0-0.2 N NUCLEATED RBC # (test code = 0.00 x10 3/uL 0.0-0.1 N NRBC#) MANUAL DIFF REQUIRED (test code NO = MDIFF) - MRI L-SPINE W/O [id number] 00:00:00 [facility] : 1995 Sex: F FAX: George Flores MD [phone] [place]: St: [facility] FAX: Kimberly Pond NP FAX: Freddy Patino DO [phone] FAX: Sabrina Sow DO [phone] Name: HAYDEE,RAYMOND [facility] : 1995 Age/S: 27/F [address] [place] [address] Unit #: [id number] Loc: [address] [address] Phys: Kimberly Pond NP Acct: [id number] Dis Date: Status: ADM IN PHONE #: [phone] Exam Date: 07/31/2022 1619 FAX #: [phone] Reason: worsening hip pain s/p lumbar surgery EXAMS: CPT CODE: [id number] MRI L-SPINE W/O CONT [id number] PROCEDURE INFORMATION: Exam: MR Lumbar Spine Without Contrast Exam date and time: 07/31/2022 3:40 PM Age: 27 years old Clinical indication: Other: Worsening hip pain S/P lumbar surgery TECHNIQUE: Imaging protocol: Magnetic resonance imaging of the lumbar spine without contrast. COMPARISON: MRI L-SPINE W WO CON 05/09/2022 11:58 AM FINDINGS: For counting purposes 5 non rib-bearing lumbar type vertebraare assumed. There has been interval surgery with placement of posterior bilateral pedicle screws likely joined by vertical plates at L4, L5 and S1. Postoperative fluid collections likely seromas are identified along the midline surgical tract between the posterior paraspinous muscles and in the adjacent subcutaneous soft tissues. The fluid collection between the paraspinous muscles measures approximately 9.5 cm craniocaudad approximately 2.5 cm transverse an approximate 1.7 cm AP. The fluid collection in the subcutaneous soft tissues measures approximately 12 cm craniocaudad approximately 5.3 cm tr ansverse and approximately 1.5 cm AP. These 2 fluid collections communicate with each other at midline extending from L2-L3 to L3-L4. No evidence for an associated infectious and/or inflammatory process is identified with these fluid collections, early infection can not be excluded. No evidence for abnormality is identified in the distal thoracic spinal cord. L1-L2 and L2-L3: There is no evidence forsignificant narrowing of the neural foramen or spinal canal. L3-L4: There is a broad shallow disc bulge with an annular fissure lateralizing to the right that results in moderate severe spinal canal stenosis with crowding of the nerve roots. There is moderate bilateral neural foramen stenosis. L4-L5: There has been interval left laminectomy with resection of the previously seen left disc protrusion with inferior extension. No evidence is identified to suggest recurrent and/or residual disc protrusion. The spinal canal has been decompressed by a left laminectomy. There is moderate bilateral neural foramen stenosis L5-S1: A left laminectomy decompresses the spinal canal. There is moderate bilateral neural foramen stenosis. PAGE 1 Signed Report (CONTINUED) FAX: George Flores MD [phone] [place]: St: ADM FAX: Kimberly Pond NP FAX: Freddy Patino DO [phone] FAX: Sabrina Sow DO [phone] Name: RAYMOND HUBBARD [facility] : 1995 Age/S: 27/F [address] [place] [address] Unit #: [id number] Loc: [address] [place] [address] Phys: Kimberly Pond NP Acct: [id number] Dis Date: Status: ADM IN PHONE #: [phone] Exam Date: 07/31/2022 1619 FAX #: [phone] Reason: worsening hip pain s/p lumbar surgery EXAMS: CPT CODE: [id number] MRI L-SPINE W/O CONT [id number] (Continued) IMPRESSION: 1. Intervalresection of a left L4-L5 disc protrusion without evidence to suggest recurrent and/or residual discmaterial. 2. At L3-L4 there is moderate severe spinal canal stenosis with crowding of the nerve roots. 3. Fluid collections, likely postoperative seromas or identified along the midline surgical tract between the posterior paraspinous muscles and in the adjacent subcutaneous soft tissues. No evidenceis identified associated with these fluid collections to suggest an infectious inflammatory process.Early infection can not be excluded. at 1747 Reported and signed by: Govind Cha M.D. CC: George Flores; Kimberly Pond JEWELRY CONSULTANT;Freddy Shah DO; Sabrina Tomlinson DO Technologist: RT Carol(Lydia)(CT) Trnscrd Date/Time/By: 07/31/2022 (1747) : By: [email or web address] Orig Print D/T: S: 07/31/2022 (6701) PAGE 2 Signed Report COMPREHENSIVE METABOLIC [id number] 05:43:00 Test Item Value Reference Range Interpretation Comments SODIUM (test code = 139 mEq/L 134-147 N NA) POTASSIUM (test code 4.3 mEq/L 3.4-5.0 N = K) CHLORIDE (test code 103 mEq/L 100-108 N = CL) CARBON DIOXIDE (test 26 mEq/l 21-33 N code = CO2) ANION GAP (test code 15 0-20 N = GAP) GLUCOSE (test code = 93 mg/dL 70-110 N GLU) BLOOD UREA NITROGEN 10 mg/dL 7-18 (test code = BUN) GLOMERULAR 102.9 110-120 L The Glomerular FILTRATION RATE Filtration R ate is a (test code = GFR) calculated parameterbased on serum Creatinine, pat ient age and sex. GFR va luesless than 60 mL/min/ 1.73 square meters a re indicative ofCh ronic Kidney Disease. Values less than 15 mL/min/1.73squa re meters indicate Kidney failure. The calculation for GFR is based on the CK D-EPI (2020) calculat ion. This formulais race indifferent and is the recommended for chavez for GFRby the [facility] on for Adults.The GFR will not calculate if th e sex is unknown or if thepatient's ag e is <18 years. CREATININE (test 0.8 mg/dL 0.6-1.3 N code = CREAT) TOTAL PROTEIN (test 7.2 g/dL 6.4-8.2 N code = PROT) ALBUMIN (test code = 2.90 g/dL 3.4-5.0 L ALB) CALCIUM (test code = 9.3 mg/dL 8.0-10.5 N CA) BILIRUBIN TOTAL 0.40 mg/dL 0.0-1.0 N (test code = BILT) SGOT/AST (test code 11 IUnit/L 15-37 L = AST) SGPT/ALT (test code 21 IUnit/L 30-65 L = ALT) ALKALINE PHOSPHATASE 95 IUnit/L 20-125 N TOTAL (test code = ALKP) [id number] 05:43:00 Test Item Value Reference Range Interpretation Comments PHOSPHOROUS (test code = PHOS) 4.6 MG/DL 2.5-4.9 N [id number] 05:43:00 Test Item Value Reference Range Interpretation Comments MAGNESIUM (test code = MAG) 2.09 mg/dL 1.80-2.40 N CALCIUM [id number] 05:43:00 Test Item Value Reference Range Interpretation Comments CALCIUM IONIZED (test code = ANNA) 1.21 MMOL/L 1.09-1.30 N CBC W/AUTO [id number] 05:17:00 Test Item Value Reference Range Interpretation Comments WHITE BLOOD CELL 12.0 x10 3/uL 4.5-11.0 H (test code = WBC) RED BLOOD CELL (test 3.29 x10 6/uL 3.54-5.02 L code = RBC) HEMOGLOBIN (test code 9.8 g/dL 11.0-15.0 L = HGB) HEMATOCRIT (test code 29.7 % 33.0-45.0 L = HCT) MEAN CELL VOLUME 90.3 fL 81.0-99.0 N (test code = MCV) MEAN CELL HGB (test 29.8 pg 27.0-33.0 N code = MCH) MEAN CELL HGB 33.0 g/dL 33.0-37.0 N CONCETRATION (test code = MCHC) RED CELL DISTRIBUTION 14.3 % 11.5-14.5 N WIDTH CV (test code = RDW) RED CELL DISTRIBUTION 45.8 fL 37.0-54.0 N WIDTH SD (test code = RDW-SD) PLATELET COUNT (test 439 x10 3/uL 150-400 H code = PLT) MEAN PLATELET VOLUME 8.7 fL 7.0-9.0 N (test code = MPV) NEUTROPHIL % (test 64.5 % 56.0-77.0 N code = NT%) LYMPHOCYTE % (test 20.1 % 14.0-32.0 N code = LY%) NEUTROPHIL # (test 7.73 x10 3/uL 2.0-7.6 H code = NT#) LYMPHOCYTE # (test 2.40 x10 3/uL 1.0-3.8 N code = LY#) MANUAL DIFF REQUIRED NO SLIDE R OC, (test code = MDIFF) CONSISTE NT WITH AUTO DIFF. IMMATURE GRANULOCYTE 5.1 % 0.0-2.0 H % (test code = IG%) MONOCYTE % (test code 7.9 % 4.8-9.0 N = MO%) EOSINOPHIL % (test 1.8 % 0.3-3.7 N code = EO%) BASOPHIL % (test code 0.6 % 0.0-2.0 N = BA%) NUCLEATED RBC % (test 0.0 % 0-0 N code = NRBC%) IMMATURE GRANULOCYTE 0.61 x10 3/uL 0.00-0.03 H # (test code = IG#) MONOCYTE # (test code 0.94 x10 3/uL 0.1-0.8 H = MO#) EOSINOPHIL # (test 0.22 x10 3/uL 0.0-0.2 H code = EO#) BASOPHIL # (test code 0.07 x10 3/uL 0.0-0.2 N = BA#) NUCLEATED RBC # (test 0.00 x10 3/uL 0.0-0.1 N code = NRBC#) COMPREHENSIVE METABOLIC [id number] 05:21:00 Test Item Value Reference Range Interpretation Comments SODIUM (test code = 135 mEq/L 134-147 N NA) POTASSIUM (test code 4.4 mEq/L 3.4-5.0 N = K) CHLORIDE (test code 108 mEq/L 100-108 N = CL) CARBON DIOXIDE (test 24 mEq/l 21-33 N code = CO2) ANION GAP (test code 7 0-20 N = GAP) GLUCOSE (test code = 94 mg/dL 70-110 N GLU) BLOOD UREA NITROGEN 6 mg/dL 7-18 L (test code = BUN) GLOMERULAR 120.7 110-120 H The Glomerular FILTRATION RATE Filtration R ate is a (test code = GFR) calculated parameterbased on serum Creatinine, pat ient age and sex. GFR va luesless than 60 mL/min/ 1.73 square meters a re indicative ofCh ronic Kidney Disease. Values less than 15 mL/min/1.73squa re meters indicate Kidney failure. The calculation for GFR is based on the CK D-EPI (2020) calculat ion. This formulais race indifferent and is the recommended for chavez for GFRby the [facility] n[facility] on for Adults.The GFR will not calculate if th e sex is unknown or if thepatient's ag e is <18 years. CREATININE (test 0.7 mg/dL 0.6-1.3 N code = CREAT) TOTAL PROTEIN (test 6.4 g/dL 6.4-8.2 code = PROT) ALBUMIN (test code = 2.60 g/dL 3.4-5.0 L ALB) CALCIUM (test code = 8.8 mg/dL 8.0-10.5 N CA) BILIRUBIN TOTAL 0.40 mg/dL 0.0-1.0 N (test code = BILT) SGOT/AST (test code 15 IUnit/L 15-37 N = AST) SGPT/ALT (test code 21 IUnit/L 30-65 L = ALT) ALKALINE PHOSPHATASE 90 IUnit/L 20-125 N TOTAL (test code = ALKP) [id number] 05:21:00 Test Item Value Reference Range Interpretation Comments PHOSPHOROUS (test code = PHOS) 4.1 MG/DL 2.5-4.9 N [id number] 05:21:00 Test Item Value Reference Range Interpretation Comments MAGNESIUM (test code = MAG) 1.98 mg/dL 1.80-2.40 N CALCIUM [id number] 05:21:00 Test Item Value Reference Range Interpretation Comments CALCIUM IONIZED (test code = ANNA) 1.03 MMOL/L 1.09-1.30 L CBC W/AUTO [id number] 04:55:00 Test Item Value Reference Range Interpretation Comments WHITE BLOOD CELL (test code = 10.0 x10 3/uL 4.5-11.0 N WBC) RED BLOOD CELL (test code = 3.04 x10 6/uL 3.54-5.02 L RBC) HEMOGLOBIN (test code = HGB) 8.8 g/dL 11.0-15.0 L HEMATOCRIT (test code = HCT) 28.2 % 33.0-45.0 L MEAN CELL VOLUME (test code = 92.8 fL 81.0-99.0 N MCV) MEAN CELL HGB (test code = MCH) 28.9 pg 27.0-33.0 N MEAN CELL HGB CONCETRATION 31.2 g/dL 33.0-37.0 L (test code = MCHC) RED CELL DISTRIBUTION WIDTH CV 14.1 % 11.5-14.5 N (test code = RDW) RED CELL DISTRIBUTION WIDTH SD 47.3 fL 37.0-54.0 N (test code = RDW-SD) PLATELET COUNT (test code = 376 x10 3/uL 150-400 N PLT) MEAN PLATELET VOLUME (test code 8.8 fL 7.0-9.0 N = MPV) NEUTROPHIL % (test code = NT%) 63.1 % 56.0-77.0 N IMMATURE GRANULOCYTE % (test 5.0 % 0.0-2.0 H code = IG%) LYMPHOCYTE % (test code = LY%) 21.8 % 14.0-32.0 N MONOCYTE % (test code = MO%) 7.8 % 4.8-9.0 N EOSINOPHIL % (test code = EO%) 1.8 % 0.3-3.7 N BASOPHIL % (test code = BA%) 0.5 % 0.0-2.0 N NUCLEATED RBC % (test code = 0.0 % 0-0 N NRBC%) NEUTROPHIL # (test code = NT#) 6.32 x10 3/uL 2.0-7.6 N IMMATURE GRANULOCYTE # (test 0.50 x10 3/uL 0.00-0.03 H code = IG#) LYMPHOCYTE # (test code = LY#) 2.18 x10 3/uL 1.0-3.8 N MONOCYTE # (test code = MO#) 0.78 x10 3/uL 0.1-0.8 N EOSINOPHIL # (test code = EO#) 0.18 x10 3/uL 0.0-0.2 N BASOPHIL # (test code = BA#) 0.05 x10 3/uL 0.0-0.2 N NUCLEATED RBC # (test code = 0.00 x10 3/uL 0.0-0.1 N NRBC#) MANUAL DIFF REQUIRED (test code NO = MDIFF) CBC W/AUTO [id number] 09:46:00 Test Item Value Reference Range Interpretation Comments WHITE BLOOD CELL 11.6 x10 3/uL 4.5-11.0 H (test code = WBC) RED BLOOD CELL (test 3.47 x10 6/uL 3.54-5.02 L code = RBC) HEMOGLOBIN (test code 10.1 g/dL 11.0-15.0 L = HGB) HEMATOCRIT (test code 31.4 % 33.0-45.0 L = HCT) MEAN CELL VOLUME 90.5 fL 81.0-99.0 N (test code = MCV) MEAN CELL HGB (test 29.1 pg 27.0-33.0 N code = MCH) MEAN CELL HGB 32.2 g/dL 33.0-37.0 L CONCETRATION (test code = MCHC) RED CELL DISTRIBUTION 13.9 % 11.5-14.5 N WIDTH CV (test code = RDW) RED CELL DISTRIBUTION 45.1 fL 37.0-54.0 N WIDTH SD (test code = RDW-SD) PLATELET COUNT (test 485 x10 3/uL 150-400 H code = PLT) MEAN PLATELET VOLUME 8.7 fL 7.0-9.0 N (test code = MPV) NEUTROPHIL % (test 60.3 % 56.0-77.0 N code = NT%) LYMPHOCYTE % (test 23.9 % 14.0-32.0 N code = LY%) NEUTROPHIL # (test 7.00 x10 3/uL 2.0-7.6 N code = NT#) LYMPHOCYTE # (test 2.78 x10 3/uL 1.0-3.8 N code = LY#) MANUAL DIFF REQUIRED NO SLIDE R OC, (test code = MDIFF) CONSISTE NT WITH AUTO DIFF. IMMATURE GRANULOCYTE 6.5 % 0.0-2.0 H % (test code = IG%) MONOCYTE % (test code 6.6 % 4.8-9.0 N = MO%) EOSINOPHIL % (test 2.2 % 0.3-3.7 N code = EO%) BASOPHIL % (test code 0.5 % 0.0-2.0 N = BA%) NUCLEATED RBC % (test 0.0 % 0-0 N code = NRBC%) IMMATURE GRANULOCYTE 0.76 x10 3/uL 0.00-0.03 H # (test code = IG#) MONOCYTE # (test code 0.77 x10 3/uL 0.1-0.8 N = MO#) EOSINOPHIL # (test 0.25 x10 3/uL 0.0-0.2 H code = EO#) BASOPHIL # (test code 0.06 x10 3/uL 0.0-0.2 N = BA#) NUCLEATED RBC # (test 0.00 x10 3/uL 0.0-0.1 N code = NRBC#) SED RATE [id number] 09:46:00 Test Item Value Reference Range Interpretation Comments SED RATE WESTERGREN (test code = 86 mm/hr 0-20 H SEDW) COMPREHENSIVE METABOLIC [id number] 07:35:00 Test Item Value Reference Range Interpretation Comments SODIUM (test code = 137 mEq/L 134-147 N NA) POTASSIUM (test code 4.1 mEq/L 3.4-5.0 N = K) CHLORIDE (test code 106 mEq/L 100-108 N = CL) CARBON DIOXIDE (test 26 mEq/l 21-33 N code = CO2) ANION GAP (test code 9 0-20 N = GAP) GLUCOSE (test code = 90 mg/dL 70-110 N GLU) BLOOD UREA NITROGEN 9 mg/dL 7-18 N (test code = BUN) GLOMERULAR 102.9 110-120 L The Glomerular FILTRATION RATE Filtration R ate is a (test code = GFR) calculated parameterbased on serum Creatinin e, patient age and sex. GFR valuesless than 60 mL/min/1.73 squ are meters are jessica cative ofChronic Kidne y Disease. Values less than 15 mL/min/1.73squa re meters indicate Kidney failure. The calculation for GFR is based on the CK D-EPI (2020) calculat ion. This formulais race indifferent and is the recommended for chavez for GFRby the [facility].The GFR will not calculate i f the sex is unknown or if thepatient's ag e is <18 years. CREATININE (test 0.8 mg/dL 0.6-1.3 N code = CREAT) TOTAL PROTEIN (test 7.7 g/dL 6.4-8.2 N code = PROT) ALBUMIN (test code = 2.90 g/dL 3.4-5.0 L ALB) CALCIUM (test code = 9.6 mg/dL 8.0-10.5 N CA) BILIRUBIN TOTAL 0.50 mg/dL 0.0-1.0 N (test code = BILT) SGOT/AST (test code 16 IUnit/L 15-37 N = AST) SGPT/ALT (test code 31 IUnit/L 30-65 N = ALT) ALKALINE PHOSPHATASE 111 IUnit/L 20-125 N TOTAL (test code = ALKP) [id number] 07:35:00 Test Item Value Reference Range Interpretation Comments PHOSPHOROUS (test code = PHOS) 3.9 MG/DL 2.5-4.9 N [id number] 07:35:00 Test Item Value Reference Range Interpretation Comments MAGNESIUM (test code = MAG) 2.19 mg/dL 1.80-2.40 N CALCIUM [id number] 07:35:00 Test Item Value Reference Range Interpretation Comments CALCIUM IONIZED (test code = ANNA) 1.17 MMOL/L 1.09-1.30 N C REACTIVE [id number] 07:28:00 Test Item Value Reference Range Interpretation Comments C REACTIVE PROTEIN (test code = 52.0 mg/L <10.0 H CRP) CSF CELL [id number] 14:52:00 Test Item Value Reference Range Interpretation Comments CSF TUBE # (test STERILE CONTAINER code = BFCSFT) CSF APPEARANCE CLEAR CLEAR (test code = APPCSF) CSF WBC (test code 56 MM3 0-5 H = WBCCSF) CSF RBC (test code 2 MM3 0-0 H = RBCCSF) CSF POLY (test code 33 % 0-7 H TOTAL CE LLS = POLYCSF) COUNTED 61 CSF LYMPHOCYTE 59 % 28-96 N TOTAL CELLS (test code = COUNTED 61 LYMPHCSF) CSF MONOCYTE (test 8 % 16-56 L TOTAL MIGUEL ANGEL LS code = MONOCSF) COUNTED 61 CSF EOSINOPHIL 0 % (test code = EOSCSF) CSF BASOPHIL (test 0 % code = BASOCSF) CSF MACROPHAGE 0 % (test code = MACCSF) CSF [id number] 11:29:00 Test Item Value Reference Range Interpretation Comments CSF COLOR (test code = COLORLESS COLORLESS COLCSF) CSF TUBE # (test code = STERILE CONTAINER TUBECSF) CSF GLUCOSE (test code = 51 MG/DL 40-80 N GLUCSF) CSF TOTAL PROTEIN (test 39.7 mg/dL 15-45 N code = PROTCSF) CBC W/AUTO [id number] 05:42:00 Test Item Value Reference Range Interpretation Comments WHITE BLOOD CELL 9.5 x10 3/uL 4.5-11.0 N (test code = WBC) RED BLOOD CELL (test 3.67 x10 6/uL 3.54-5.02 N code = RBC) HEMOGLOBIN (test code 10.6 g/dL 11.0-15.0 L = HGB) HEMATOCRIT (test code 32.9 % 33.0-45.0 L = HCT) MEAN CELL VOLUME 89.6 fL 81.0-99.0 N (test code = MCV) MEAN CELL HGB (test 28.9 pg 27.0-33.0 N code = MCH) MEAN CELL HGB 32.2 g/dL 33.0-37.0 L CONCETRATION (test code = MCHC) RED CELL DISTRIBUTION 13.4 % 11.5-14.5 N WIDTH CV (test code = RDW) RED CELL DISTRIBUTION 43.9 fL 37.0-54.0 N WIDTH SD (test code = RDW-SD) PLATELET COUNT (test 468 x10 3/uL 150-400 H code = PLT) MEAN PLATELET VOLUME 8.8 fL 7.0-9.0 N (test code = MPV) NEUTROPHIL % (test 62.7 % 56.0-77.0 N code = NT%) LYMPHOCYTE % (test 20.7 % 14.0-32.0 N code = LY%) NEUTROPHIL # (test 5.95 x10 3/uL 2.0-7.6 N code = NT#) LYMPHOCYTE # (test 1.97 x10 3/uL 1.0-3.8 N code = LY#) MANUAL DIFF REQUIRED NO SLIDE R OC, (test code = MDIFF) CONSISTE NT WITH AUTO DIFF. IMMATURE GRANULOCYTE 6.5 % 0.0-2.0 H % (test code = IG%) MONOCYTE % (test code 7.0 % 4.8-9.0 N = MO%) EOSINOPHIL % (test 2.5 % 0.3-3.7 N code = EO%) BASOPHIL % (test code 0.6 % 0.0-2.0 N = BA%) NUCLEATED RBC % (test 0.0 % 0-0 N code = NRBC%) IMMATURE GRANULOCYTE 0.62 x10 3/uL 0.00-0.03 H # (test code = IG#) MONOCYTE # (test code 0.67 x10 3/uL 0.1-0.8 N = MO#) EOSINOPHIL # (test 0.24 x10 3/uL 0.0-0.2 H code = EO#) BASOPHIL # (test code 0.06 x10 3/uL 0.0-0.2 N = BA#) NUCLEATED RBC # (test 0.00 x10 3/uL 0.0-0.1 N code = NRBC#) COMPREHENSIVE METABOLIC [id number] 05:24:00 Test Item Value Reference Range Interpretation Comments SODIUM (test code = 139 mEq/L 134-147 N NA) POTASSIUM (test code 4.3 mEq/L 3.4-5.0 N = K) CHLORIDE (test code 104 mEq/L 100-108 N = CL) CARBON DIOXIDE (test 27 mEq/l 21-33 N code = CO2) ANION GAP (test code 12 0-20 N = GAP) GLUCOSE (test code = 95 mg/dL 70-110 N GLU) BLOOD UREA NITROGEN 8 mg/dL 7-18 N (test code = BUN) GLOMERULAR 102.9 110-120 L The Glomerular FILTRATION RATE Filtration R ate is a (test code = GFR) calculated parameterbased on serum Creatinin e, patient age and sex. GFR valuesless than 60 mL/min/1.73 squ are meters are jessica cative ofChronic Kidne y Disease. Values less than 15 mL/min/1.73squa re meters indicate Kidney failure. The calculation for GFR is based on the CK D-EPI (2020) calculat ion. This formulais race indifferent and is the recommended for chavez for GFRby the [facility] Foundati on for Adults.The GFR will not calculate i f the sex is unknown or if thepatient's ag e is <18 years. CREATININE (test 0.8 mg/dL 0.6-1.3 N code = CREAT) TOTAL PROTEIN (test 7.7 g/dL 6.4-8.2 N code = PROT) ALBUMIN (test code = 2.80 g/dL 3.4-5.0 L ALB) CALCIUM (test code = 9.5 mg/dL 8.0-10.5 N CA) BILIRUBIN TOTAL 0.40 mg/dL 0.0-1.0 N (test code = BILT) SGOT/AST (test code 15 IUnit/L 15-37 N = AST) SGPT/ALT (test code 34 IUnit/L 30-65 N = ALT) ALKALINE PHOSPHATASE 120 IUnit/L 20-125 N TOTAL (test code = ALKP) [id number] 05:24:00 Test Item Value Reference Range Interpretation Comments PHOSPHOROUS (test code = PHOS) 3.4 MG/DL 2.5-4.9 N [id number] 05:24:00 Test Item Value Reference Range Interpretation Comments MAGNESIUM (test code = MAG) 2.17 mg/dL 1.80-2.40 N CALCIUM [id number] 05:24:00 Test Item Value Reference Range Interpretation Comments CALCIUM IONIZED (test code = ANNA) 1.20 MMOL/L 1.09-1.30 N AB HERPES SIMPLEX 1 2 [id number] 05:11:00 Test Item Value Reference Range Interpretation Comments CSF HSV1 PCR (test Negative Negative code = [id number]) CSF HSV2 PCR (test Negative Negative Performed At: [facility] code = [id number]) [facility] [id number] [id number] Ian Dyer MD Ph:[phone] CBC W/AUTO [id number] 05:58:00 Test Item Value Reference Range Interpretation Comments WHITE BLOOD CELL 13.3 x10 3/uL 4.5-11.0 H (test code = WBC) RED BLOOD CELL (test 3.18 x10 6/uL 3.54-5.02 L code = RBC) HEMOGLOBIN (test code 9.3 g/dL 11.0-15.0 L = HGB) HEMATOCRIT (test code 28.2 % 33.0-45.0 L = HCT) MEAN CELL VOLUME 88.7 fL 81.0-99.0 N (test code = MCV) MEAN CELL HGB (test 29.2 pg 27.0-33.0 N code = MCH) MEAN CELL HGB 33.0 g/dL 33.0-37.0 N CONCETRATION (test code = MCHC) RED CELL DISTRIBUTION 13.4 % 11.5-14.5 N WIDTH CV (test code = RDW) RED CELL DISTRIBUTION 43.5 fL 37.0-54.0 N WIDTH SD (test code = RDW-SD) PLATELET COUNT (test 377 x10 3/uL 150-400 N code = PLT) MEAN PLATELET VOLUME 8.8 fL 7.0-9.0 N (test code = MPV) NEUTROPHIL % (test 59.4 % 56.0-77.0 N code = NT%) LYMPHOCYTE % (test 23.3 % 14.0-32.0 N code = LY%) NEUTROPHIL # (test 7.90 x10 3/uL 2.0-7.6 H code = NT#) LYMPHOCYTE # (test 3.10 x10 3/uL 1.0-3.8 N code = LY#) MANUAL DIFF REQUIRED NO SLIDE R EVIEWED, (test code = MDIFF) CONSISTE NT WITH AUTO DIFF. IMMATURE GRANULOCYTE 5.7 % 0.0-2.0 H % (test code = IG%) MONOCYTE % (test code 9.5 % 4.8-9.0 H = MO%) EOSINOPHIL % (test 1.7 % 0.3-3.7 N code = EO%) BASOPHIL % (test code 0.4 % 0.0-2.0 N = BA%) NUCLEATED RBC % (test 0.0 % 0-0 N code = NRBC%) IMMATURE GRANULOCYTE 0.76 x10 3/uL 0.00-0.03 H # (test code = IG#) MONOCYTE # (test code 1.27 x10 3/uL 0.1-0.8 H = MO#) EOSINOPHIL # (test 0.22 x10 3/uL 0.0-0.2 H code = EO#) BASOPHIL # (test code 0.05 x10 3/uL 0.0-0.2 N = BA#) NUCLEATED RBC # (test 0.00 x10 3/uL 0.0-0.1 N code = NRBC#) BASIC METABOLIC [id number] 05:55:00 Test Item Value Reference Range Interpretation Comments SODIUM (test code = 139 mEq/L 134-147 N NA) POTASSIUM (test code 3.9 mEq/L 3.4-5.0 N = K) CHLORIDE (test code 103 mEq/L 100-108 N = CL) CARBON DIOXIDE (test 26 mEq/l 21-33 N code = CO2) ANION GAP (test code 13 0-20 N = GAP) GLUCOSE (test code = 93 mg/dL 70-110 N GLU) BLOOD UREA NITROGEN 9 mg/dL 7-18 N (test code = BUN) GLOMERULAR 120.7 110-120 H The Glomerular FILTRATION RATE Filtration R ate is a (test code = GFR) calculated parameterbased on serum Creatinine, pat ient age and sex. GFR va luesless than 60 mL/min/ 1.73 square meters a re indicative ofCh ronic Kidney Disease. Values less than 15 mL/min/1.73squa re meters indicate Kidney failure. The calculation forGFR is based on the CKD-EPI (2020) calculat ion. This formulais race indifferent and is the recommended for chavez for GFRby the [facility] for Ad[facility].The GFR will not calculate if th e sex is unknown or if thepatient's ag e is <18 years. CREATININE (test 0.7 mg/dL 0.6-1.3 N code = CREAT) CALCIUM (test code = 8.8 mg/dL 8.0-10.5 N CA) HEPATIC FUNCTION [id number] 12:40:00 Test Item Value Reference Range Interpretation Comments TOTAL PROTEIN (test code = PROT) 7.1 g/dL 6.4-8.2 N ALBUMIN (test code = ALB) 2.60 g/dL 3.4-5.0 L BILIRUBIN TOTAL (test code = 0.50 mg/dL 0.0-1.0 N BILT) BILIRUBIN DIRECT (test code = 0.30 MG/DL 0.0-0.30 N BILD) BILIRUBIN INDIRECT (test code = 0.20 MG/DL BILIND) SGOT/AST (test code = AST) 15 IUnit/L 15-37 N SGPT/ALT (test code = ALT) 48 IUnit/L 30-65 ALKALINE PHOSPHATASE TOTAL (test 145 IUnit/L 20-125 H code = ALKP) COMMENTS: can add tp specimen in labBASIC METABOLIC [id number] 04:43:00 Test Item Value Reference Range Interpretation Comments SODIUM (test code = 139 mEq/L 134-147 N NA) POTASSIUM (test code 3.7 mEq/L 3.4-5.0 N = K) CHLORIDE (test code 102 mEq/L 100-108 N = CL) CARBON DIOXIDE (test 27 mEq/l 21-33 N code = CO2) ANION GAP (test code 13 0-20 N = GAP) GLUCOSE (test code = 99 mg/dL 70-110 N GLU) BLOOD UREA NITROGEN 11 mg/dL 7-18 N (test code = BUN) GLOMERULAR 102.9 110-120 L The Glomerular FILTRATION RATE Filtration R ate is a (test code = GFR) calculated parameterbased on serum Creatinine, pat ient age and sex. GFR va luesless than 60 mL/min/ 1.73 square meters a re indicative ofCh ronic Kidney Disease. Values less than 15 mL/min/1.73squa re meters indicate Kidney failure. The calculation forGFR is based on the CKD-EPI (2020) calculat ion. This formulais race indifferent and is the recommended for chavez for GFRby the [facility] for Ad[facility].The GFR will not calculate if th e sex is unknown or if thepatient's ag e is <18 years. CREATININE (test 0.8 mg/dL 0.6-1.3 N code = CREAT) CALCIUM (test code = 8.6 mg/dL 8.0-10.5 N CA) CBC W/AUTO [id number] 04:27:00 Test Item Value Reference Range Interpretation Comments WHITE BLOOD CELL (test code = 14.2 x10 3/uL 4.5-11.0 H WBC) RED BLOOD CELL (test code = 3.29 x10 6/uL 3.54-5.02 L RBC) HEMOGLOBIN (test code = HGB) 9.5 g/dL 11.0-15.0 L HEMATOCRIT (test code = HCT) 29.3 % 33.0-45.0 L MEAN CELL VOLUME (test code = 89.1 fL 81.0-99.0 N MCV) MEAN CELL HGB (test code = MCH) 28.9 pg 27.0-33.0 N MEAN CELL HGB CONCETRATION 32.4 g/dL 33.0-37.0 L (test code = MCHC) RED CELL DISTRIBUTION WIDTH CV 13.4 % 11.5-14.5 N (test code = RDW) RED CELL DISTRIBUTION WIDTH SD 43.9 fL 37.0-54.0 N (test code = RDW-SD) PLATELET COUNT (test code = 362 x10 3/uL 150-400 N PLT) MEAN PLATELET VOLUME (test code 9.0 fL 7.0-9.0 N = MPV) NEUTROPHIL % (test code = NT%) 66.8 % 56.0-77.0 N IMMATURE GRANULOCYTE % (test 3.5 % 0.0-2.0 H code = IG%) LYMPHOCYTE % (test code = LY%) 19.6 % 14.0-32.0 N MONOCYTE % (test code = MO%) 8.6 % 4.8-9.0 N EOSINOPHIL % (test code = EO%) 1.1 % 0.3-3.7 N BASOPHIL % (test code = BA%) 0.4 % 0.0-2.0 N NUCLEATED RBC % (test code = 0.1 % 0-0 H NRBC%) NEUTROPHIL # (test code = NT#) 9.50 x10 3/uL 2.0-7.6 H IMMATURE GRANULOCYTE # (test 0.50 x10 3/uL 0.00-0.03 H code = IG#) LYMPHOCYTE # (test code = LY#) 2.79 x10 3/uL 1.0-3.8 N MONOCYTE # (test code = MO#) 1.23 x10 3/uL 0.1-0.8 H EOSINOPHIL # (test code = EO#) 0.15 x10 3/uL 0.0-0.2 N BASOPHIL # (test code = BA#) 0.06 x10 3/uL 0.0-0.2 N NUCLEATED RBC # (test code = 0.02 x10 3/uL 0.0-0.1 N NRBC#) MANUAL DIFF REQUIRED (test code NO = MDIFF) - CT HEAD/BRAIN W/O [id number] 00:00:00 [facility] : 1995 Sex: F [facility]: [facility] 1995 Age/S: 27 / F [address] [place] [address] Unit #: [id number] Loc: [place] [address] Phys: Kimberly Pond JEWELRY CONSULTANT Acct: [id number] Dis Date: Status: ADM IN PHONE #: [phone] Exam Date: 07/25/2022 1419 FAX #: [phone] Reason: severe headache, lumbar drain EXAMS: CPT CODE: [id number] CT HEAD/BRAIN W/O CONT [id number] PROCEDURE INFORMATION: Exam: CT Head Without Contrast Exam date and time: 07/25/2022 2:23 PM Age: 27 years old Clinical indication: Pain; Headache; Additional info: Severe headache, lumbar drain TECHNIQUE: Imaging protocol: Computed tomographyof the head without contrast. Radiation optimization: All CT scans at this facility use at least oneof these dose optimization techniques: automated exposure control; mA and/or kV adjustment per patient size (includes targeted exams where dose is matched to clinical indication); or iterative reconstruction. COMPARISON: CT HEAD/BRAIN W/O CONT 07/20/2022 2:42 AM FINDINGS: Brain: Maintained hill-white di fferentiation. No hemorrhage, midline shift nor abnormal extra-axial fluid collection. Cerebral ventricles: Midline in position. Unremarkable caliber. Paranasal sinuses: Visualized sinuses are unremarkable. No fluid levels. Mastoid air cells: Visualized mastoid air cells are well aerated. Orbital cavities: Unremarkable appearance of orbits. Bones/joints: No acute fracture. Soft tissues: Unremarkable.IMPRESSION: No acute intracranial process nor bony injury. at 1537 Reported and signed by: Neftali Crawford M.D. CC: George Flores; Kimberly Pond JEWELRY CONSULTANT; Freddy Shah DO; Sabrina Tomlinson DO Technologist:RT Isamar(R)(CT) CTDI: DLP: Trnscb Date/Time: 07/25/2022 (1537) [email or web address] Orig Print D/T: S: 07/25/2022 (4607) [id number] 17:00:00 Test Item Value Reference Range Interpretation Comments CSF TUBE # (test code = STER ILE CONTAINER BFCSFT) CSF APPEARANCE (test code = CLOUDY CLEAR APPCSF) CSF WBC (test code = WBCCSF) 430 MM3 0-5 H CSF RBC (test code = RBCCSF) 36 MM3 0-0 H CSF POLY (test code = 73 % 0-7 H POLYCSF) CSF LYMPHOCYTE (test code = 10 % 28-96 L LYMPHCSF) CSF EOSINOPHIL (test code = % EOSCSF) CSF BASOPHIL (test code = % BASOCSF) CSF MACROPHAGE (test code = 11 % MACCSF) CSF MONOCYTE (test code = 6 % 16-56 L MONOCSF) CSF [id number] 15:36:00 Test Item Value Reference Range Interpretation Comments CSF COLOR (test code = XANTHROCHROMIC COLORLESS COLCSF) CSF TUBE # (test code = STERILE CONTAINER TUBECSF) CSF GLUCOSE (test code = 35 MG/DL 40-80 L GLUCSF) CSF TOTAL PROTEIN (test 63.4 mg/dL 15-45 H code = PROTCSF) BASIC METABOLIC [id number] 04:26:00 Test Item Value Reference Range Interpretation Comments SODIUM (test code = 139 mEq/L 134-147 N NA) POTASSIUM (test code 4.0 mEq/L 3.4-5.0 N = K) CHLORIDE (test code 104 mEq/L 100-108 N = CL) CARBON DIOXIDE (test 27 mEq/l 21-33 N code = CO2) ANION GAP (test code 12 0-20 N = GAP) GLUCOSE (test code = 95 mg/dL 70-110 N GLU) BLOOD UREA NITROGEN 9 mg/dL 7-18 (test code = BUN) GLOMERULAR 102.9 110-120 L The Glomerular FILTRATION RATE Filtration R ate is a (test code = GFR) calculated parameterbased on serum Creatinine, pat ient age and sex. GFR va luesless than 60 mL/min/ 1.73 square meters a re indicative ofCh ronic Kidney Disease. Values less than 15 mL/min/1.73squa re meters indicate Kidney failure. The calculation forGFR is based on the CKD-EPI (2020) calculat ion. This formulais race indifferent and is the recommended for chavez for GFRby the [facility] Kidney Foundati on for Adults.The GFR will not calculate if th e sex is unknown or if thepatient's ag e is <18 years. CREATININE (test 0.8 mg/dL 0.6-1.3 N code = CREAT) CALCIUM (test code = 8.4 mg/dL 8.0-10.5 N CA) CBC W/AUTO [id number] 04:10:00 Test Item Value Reference Range Interpretation Comments WHITE BLOOD CELL (test code = 12.4 x10 3/uL 4.5-11.0 H WBC) RED BLOOD CELL (test code = 3.62 x10 6/uL 3.54-5.02 N RBC) HEMOGLOBIN (test code = HGB) 10.3 g/dL 11.0-15.0 L HEMATOCRIT (test code = HCT) 32.6 % 33.0-45.0 L MEAN CELL VOLUME (test code = 90.1 fL 81.0-99.0 MCV) MEAN CELL HGB (test code = MCH) 28.5 pg 27.0-33.0 N MEAN CELL HGB CONCETRATION 31.6 g/dL 33.0-37.0 L (test code = MCHC) RED CELL DISTRIBUTION WIDTH CV 13.4 % 11.5-14.5 N (test code = RDW) RED CELL DISTRIBUTION WIDTH SD 44.4 fL 37.0-54.0 N (test code = RDW-SD) PLATELET COUNT (test code = 345 x10 3/uL 150-400 N PLT) MEAN PLATELET VOLUME (test code 8.8 fL 7.0-9.0 N = MPV) NEUTROPHIL % (test code = NT%) 67.6 % 56.0-77.0 N IMMATURE GRANULOCYTE % (test 2.8 % 0.0-2.0 H code = IG%) LYMPHOCYTE % (test code = LY%) 18.8 % 14.0-32.0 N MONOCYTE % (test code = MO%) 9.5 % 4.8-9.0 H EOSINOPHIL % (test code = EO%) 0.8 % 0.3-3.7 N BASOPHIL % (test code = BA%) 0.5 % 0.0-2.0 N NUCLEATED RBC % (test code = 0.2 % 0-0 H NRBC%) NEUTROPHIL # (test code = NT#) 8.36 x10 3/uL 2.0-7.6 H IMMATURE GRANULOCYTE # (test 0.35 x10 3/uL 0.00-0.03 H code = IG#) LYMPHOCYTE # (test code = LY#) 2.32 x10 3/uL 1.0-3.8 N MONOCYTE # (test code = MO#) 1.18 x10 3/uL 0.1-0.8 H EOSINOPHIL # (test code = EO#) 0.10 x10 3/uL 0.0-0.2 N BASOPHIL # (test code = BA#) 0.06 x10 3/uL 0.0-0.2 N NUCLEATED RBC # (test code = 0.02 x10 3/uL 0.0-0.1 N NRBC#) MANUAL DIFF REQUIRED (test code NO = MDIFF) BASIC METABOLIC [id number] 04:46:00 Test Item Value Reference Range Interpretation Comments SODIUM (test code = 139 mEq/L 134-147 N NA) POTASSIUM (test code 3.8 mEq/L 3.4-5.0 = K) CHLORIDE (test code 104 mEq/L 100-108 N = CL) CARBON DIOXIDE (test 26 mEq/l 21-33 N code = CO2) ANION GAP (test code 13 0-20 N = GAP) GLUCOSE (test code = 107 mg/dL 70-110 N GLU) BLOOD UREA NITROGEN 7 mg/dL 7-18 N (test code = BUN) GLOMERULAR 120.7 110-120 H The Glomerular FILTRATION RATE Filtration R ate is a (test code = GFR) calculated parameterbased on serum Creatinine, pat ient age and sex. GFR va luesless than 60 mL/min/ 1.73 square meters a re indicative ofCh ronic Kidney Disease. Values less than 15 mL/min/1.73squa re meters indicate Kidney failure. The calculation forGFR is based on the CKD-EPI (2020) calculat ion. This formulais race indifferent and is the recommended for chavez for GFRby the Natio nal Kidney Foundati on for Adults.The GFR will not calculate if th e sex is unknown or if thepatient's ag e is <18 years. CREATININE (test 0.7 mg/dL 0.6-1.3 N code = CREAT) CALCIUM (test code = 8.0 mg/dL 8.0-10.5 N CA) CBC W/AUTO [id number] 04:23:00 Test Item Value Reference Range Interpretation Comments WHITE BLOOD CELL (test code = 14.6 x10 3/uL 4.5-11.0 H WBC) RED BLOOD CELL (test code = 3.16 x10 6/uL 3.54-5.02 L RBC) HEMOGLOBIN (test code = HGB) 9.0 g/dL 11.0-15.0 L HEMATOCRIT (test code = HCT) 27.5 % 33.0-45.0 L MEAN CELL VOLUME (test code = 87.0 fL 81.0-99.0 N MCV) MEAN CELL HGB (test code = 28.5 pg 27.0-33.0 N MCH) MEAN CELL HGB CONCETRATION 32.7 g/dL 33.0-37.0 L (test code = MCHC) RED CELL DISTRIBUTION WIDTH CV 13.2 % 11.5-14.5 N (test code = RDW) RED CELL DISTRIBUTION WIDTH SD 42.0 fL 37.0-54.0 N (test code = RDW-SD) PLATELET COUNT (test code = 296 x10 3/uL 150-400 N PLT) MEAN PLATELET VOLUME (test 9.1 fL 7.0-9.0 H code = MPV) NEUTROPHIL % (test code = NT%) 79.5 % 56.0-77.0 H IMMATURE GRANULOCYTE % (test 1.5 % 0.0-2.0 N code = IG%) LYMPHOCYTE % (test code = LY%) 10.2 % 14.0-32.0 L MONOCYTE % (test code = MO%) 8.2 % 4.8-9.0 N EOSINOPHIL % (test code = EO%) 0.3 % 0.3-3.7 N BASOPHIL % (test code = BA%) 0.3 % 0.0-2.0 N NUCLEATED RBC % (test code = 0.2 % 0-0 H NRBC%) NEUTROPHIL # (test code = NT#) 11.57 x10 3/uL 2.0-7.6 H IMMATURE GRANULOCYTE # (test 0.22 x10 3/uL 0.00-0.03 H code = IG#) LYMPHOCYTE # (test code = LY#) 1.48 x10 3/uL 1.0-3.8 N MONOCYTE # (test code = MO#) 1.20 x10 3/uL 0.1-0.8 H EOSINOPHIL # (test code = EO#) 0.05 x10 3/uL 0.0-0.2 N BASOPHIL # (test code = BA#) 0.05 x10 3/uL 0.0-0.2 N NUCLEATED RBC # (test code = 0.03 x10 3/uL 0.0-0.1 N NRBC#) MANUAL DIFF REQUIRED (test NO code = MDIFF) CBC W/AUTO [id number] 06:07:00 Test Item Value Reference Range Interpretation Comments WHITE BLOOD CELL (test code = 18.1 x10 3/uL 4.5-11.0 H WBC) RED BLOOD CELL (test code = 3.27 x10 6/uL 3.54-5.02 L RBC) HEMOGLOBIN (test code = HGB) 9.5 g/dL 11.0-15.0 L HEMATOCRIT (test code = HCT) 29.4 % 33.0-45.0 L MEAN CELL VOLUME (test code = 89.9 fL 81.0-99.0 MCV) MEAN CELL HGB (test code = 29.1 pg 27.0-33.0 N MCH) MEAN CELL HGB CONCETRATION 32.3 g/dL 33.0-37.0 L (test code = MCHC) RED CELL DISTRIBUTION WIDTH CV 13.0 % 11.5-14.5 N (test code = RDW) RED CELL DISTRIBUTION WIDTH SD 43.3 fL 37.0-54.0 N (test code = RDW-SD) PLATELET COUNT (test code = 277 x10 3/uL 150-400 N PLT) MEAN PLATELET VOLUME (test 9.3 fL 7.0-9.0 H code = MPV) NEUTROPHIL % (test code = NT%) 91.3 % 56.0-77.0 H IMMATURE GRANULOCYTE % (test 0.6 % 0.0-2.0 N code = IG%) LYMPHOCYTE % (test code = LY%) 3.3 % 14.0-32.0 L MONOCYTE % (test code = MO%) 4.7 % 4.8-9.0 L EOSINOPHIL % (test code = EO%) 0.0 % 0.3-3.7 L BASOPHIL % (test code = BA%) 0.1 % 0.0-2.0 N NUCLEATED RBC % (test code = 0.0 % 0-0 N NRBC%) NEUTROPHIL # (test code = NT#) 16.49 x10 3/uL 2.0-7.6 H IMMATURE GRANULOCYTE # (test 0.11 x10 3/uL 0.00-0.03 H code = IG#) LYMPHOCYTE # (test code = LY#) 0.60 x10 3/uL 1.0-3.8 L MONOCYTE # (test code = MO#) 0.85 x10 3/uL 0.1-0.8 H EOSINOPHIL # (test code = EO#) 0.00 x10 3/uL 0.0-0.2 N BASOPHIL # (test code = BA#) 0.02 x10 3/uL 0.0-0.2 N NUCLEATED RBC # (test code = 0.00 x10 3/uL 0.0-0.1 N NRBC#) MANUAL DIFF REQUIRED (test NO code = MDIFF) SED RATE [id number] 06:07:00 Test Item Value Reference Range Interpretation Comments SED RATE WESTERGREN (test code = 114 mm/hr 0-20 H SEDW) C REACTIVE [id number] 05:31:00 Test Item Value Reference Range Interpretation Comments C REACTIVE PROTEIN (test code = 338.0 mg/L <10.0 H CRP) BASIC METABOLIC [id number] 05:21:00 Test Item Value Reference Range Interpretation Comments SODIUM (test code = 138 mEq/L 134-147 N NA) POTASSIUM (test code 4.9 mEq/L 3.4-5.0 N = K) CHLORIDE (test code 108 mEq/L 100-108 N = CL) CARBON DIOXIDE (test 23 mEq/l 21-33 N code = CO2) ANION GAP (test code 12 0-20 N = GAP) GLUCOSE (test code = 118 mg/dL 70-110 H GLU) BLOOD UREA NITROGEN 6 mg/dL 7-18 L (test code = BUN) GLOMERULAR 125.3 110-120 H The Glomerular FILTRATION RATE Filtration R ate is a (test code = GFR) calculated parameterbased on serum Creatinine, pat ient age and sex. GFR va luesless than 60 mL/min/ 1.73 square meters a re indicative ofCh ronic Kidney Disease. Values less than 15 mL/min/1.73squa re meters indicate Kidney failure. The calculation forGFR is based on the CKD-EPI (202) calculat ion. This formulais race indifferent and is the recommended for chavez for GFRby the Natio nal Kidney Foundati on for Adults.The GFR will not calculate if th e sex is unknown or if thepatient's ag e is <18 years. CREATININE (test 0.6 mg/dL 0.6-1.3 N code = CREAT) CALCIUM (test code = 8.4 mg/dL 8.0-10.5 N CA) BASIC METABOLIC [id number] 08:08:00 Test Item Value Reference Range Interpretation Comments SODIUM (test code = 137 mEq/L 134-147 N NA) POTASSIUM (test code 4.3 mEq/L 3.4-5.0 N = K) CHLORIDE (test code 106 mEq/L 100-108 N = CL) CARBON DIOXIDE (test 19 mEq/l 21-33 L code = CO2) ANION GAP (test code 16 0-20 N = GAP) GLUCOSE (test code = 107 mg/dL 70-110 N GLU) BLOOD UREA NITROGEN 8 mg/dL 7-18 N (test code = BUN) GLOMERULAR 102.9 110-120 L The Glomerular FILTRATION RATE Filtration R ate is a (test code = GFR) calculated parameterbased on serum Creatinine, pat ient age and sex. GFR va luesless than 60 mL/min/ 1.73 square meters a re indicative ofCh ronic Kidney Disease. Values less than 15 mL/min/1.73squa re meters indicate Kidney failure. The calculation forGFR is based on the CKD-EPI (202) calculat ion. This formulais race indifferent and is the recommended for chavez for GFRby the Natio nal Kidney Foundati on for Adults.The GFR will not calculate if th e sex is unknown or if thepatient's ag e is <18 years. CREATININE (test 0.8 mg/dL 0.6-1.3 N code = CREAT) CALCIUM (test code = 8.5 mg/dL 8.0-10.5 N CA) CBC W/AUTO [id number] 06:53:00 Test Item Value Reference Range Interpretation Comments WHITE BLOOD CELL (test code = 20.0 x10 3/uL 4.5-11.0 H WBC) RED BLOOD CELL (test code = 3.81 x10 6/uL 3.54-5.02 N RBC) HEMOGLOBIN (test code = HGB) 11.2 g/dL 11.0-15.0 N HEMATOCRIT (test code = HCT) 35.6 % 33.0-45.0 N MEAN CELL VOLUME (test code = 93.4 fL 81.0-99.0 MCV) MEAN CELL HGB (test code = 29.4 pg 27.0-33.0 N MCH) MEAN CELL HGB CONCETRATION 31.5 g/dL 33.0-37.0 L (test code = MCHC) RED CELL DISTRIBUTION WIDTH CV 13.4 % 11.5-14.5 N (test code = RDW) RED CELL DISTRIBUTION WIDTH SD 45.8 fL 37.0-54.0 N (test code = RDW-SD) PLATELET COUNT (test code = 296 x10 3/uL 150-400 N PLT) MEAN PLATELET VOLUME (test 9.9 fL 7.0-9.0 H code = MPV) NEUTROPHIL % (test code = NT%) 88.6 % 56.0-77.0 H IMMATURE GRANULOCYTE % (test 0.6 % 0.0-2.0 N code = IG%) LYMPHOCYTE % (test code = LY%) 4.5 % 14.0-32.0 L MONOCYTE % (test code = MO%) 6.1 % 4.8-9.0 N EOSINOPHIL % (test code = EO%) 0.0 % 0.3-3.7 L BASOPHIL % (test code = BA%) 0.2 % 0.0-2.0 N NUCLEATED RBC % (test code = 0.0 % 0-0 N NRBC%) NEUTROPHIL # (test code = NT#) 17.74 x10 3/uL 2.0-7.6 H IMMATURE GRANULOCYTE # (test 0.12 x10 3/uL 0.00-0.03 H code = IG#) LYMPHOCYTE # (test code = LY#) 0.91 x10 3/uL 1.0-3.8 L MONOCYTE # (test code = MO#) 1.23 x10 3/uL 0.1-0.8 H EOSINOPHIL # (test code = EO#) 0.00 x10 3/uL 0.0-0.2 N BASOPHIL # (test code = BA#) 0.04 x10 3/uL 0.0-0.2 N NUCLEATED RBC # (test code = 0.00 x10 3/uL 0.0-0.1 N NRBC#) MANUAL DIFF REQUIRED (test NO code = MDIFF) - DUP VEIN [id number] 00:00:00 [facility] 1995 Sex: F Name: RAYMOND HUBBARD [facility] : 1995 Age/S: 27 / F [address] [place] [address] Unit #: [id number] Loc: [place] [address] Phys: Kimberly Pond JEWELRY CONSULTANT Acct: [id number] Dis Date: Status: ADM IN PHONE #: [phone] Exam Date: 07/21/202225 FAX #: [phone] Reason: left leg pain, recent spinesurgery EXAMS: CPT CODE: [id number] DUP VEIN UNI/LTD [id number] PROCEDURE INFORMATION: Exam: US Duplex Left Lower Extremity Veins, Limited Exam date and time: 07/21/2022 6:47 AM Age: 27 years old Clinical indication: Pain; Leg, lower; Left; Additional info: Left leg pain, recent spine surgery TECHNIQUE: Imaging protocol: Real- time Duplex ultrasound of the Left Lower Extremity with 2-D velasquez scale, color Doppler flow and spectral waveform analysis with image documentation. Limited exam focused on the left lower extremity veins. COMPARISON: No relevant prior studies available. FINDINGS: Left deep veins: Unremarkable. The common femoral, femoral, proximal profunda femoral and popliteal veins are patent without thrombus. Normal Doppler waveforms. Normal compressibility and/or augmentation response. Left superficial veins: Unremarkable. Saphenofemoral junction is patent without thrombus. Soft tissues: Unremarkable. IMPRESSION: No evidence of deep vein thrombosis. at 0751 Reported and signed by: Mundo Nassar M.D. CC: George Flores; Kimberly Pond JEWELRY CONSULTANT; Sabrina Tomlinson DO Technologist: Katelin Forbes Trnokb Date/Time: 07/21/2022 (075) AngelinaTDO Orig Print D/T: S: 07/21/2022 (075) Probe: [id number] 18:52:00 Test Item Value Reference Range Interpretation Comments CSF TUBE # (test code STERIL E CONTAINER = BFCSFT) CSF APPEARANCE (test CLOUDY CLEAR code = APPCSF) CSF WBC AUTO (test 3145 cell/uL 0-5 H code = WBCCSFA) CSF RBC AUTO (test 5000 cells/uL 0-0 H code = RBCCSFA) CSF POLY (test code = 94 % 0-7 H POLYCSF) CSF LYMPHOCYTE (test 3 % 28-96 L code = LYMPHCSF) CSF EOSINOPHIL (test % code = EOSCSF) CSF BASOPHIL (test % code = BASOCSF) CSF MACROPHAGE (test % code = MACCSF) CSF MONOCYTE (test 3 % 16-56 L code = MONOCSF) UR HCG [id number] 10:54:00 Test Item Value Reference Range Interpretation Comments UR HCG QUAL (test code = HCGQLU) NEGATIVE NEGATIVE UA RFLX MICR CULT IF [id number] 05:31:00 Test Item Value Reference Range Interpretation Comments UA COLOR (test code = COLU) STRAW YEL/STRAW UA APPEARANCE (test code = CLEAR CLEAR APPU) UA GLUCOSE DIPSTICK (test code NEGATIVE NEGATIVE = DGLUU) UA BILIRUBIN DIPSTICK (test NEGATIVE NEGATIVE code = BILU) UA KETONE DIPSTICK (test code 1+ NEGATIVE A = KETU) UA SPECIFIC GRAVITY (test code 1.028 1.005-1.030 N = SGU) UA BLOOD DIPSTICK (test code = NEGATIVE NEGATIVE KARRIE) UA PH DIPSTICK (test code = 6.0 5.0-7.0 N JAKE) UA PROTEIN DIPSTICK (test code NEGATIVE NEGATIVE = PROU) UA UROBILINIOGEN DIPSTICK 0.2 mg/dL 0.2-1.0 (test code = URO) UA NITRITE DIPSTICK (test code NEGATIVE NEGATIVE = HOMAR) UA LEUKOCYTE ESTERASE DIPSTICK NEGATIVE NEGATIVE (test code = LEUU) UA WBC (test code = WBCU) 0-3 WBC/HPF 0-3 UA RBC (test code = RBCU) 0-3 RBC/HPF 0-3 UA WBC NO REFLEX (test code = 0-3 WBC/HPF 0-3 WBCUCL) UA BACTERIA (test code = BACU) NONE SEEN /HPF NONE SEEN UA SQUAMOUS CELLS (test code = 0-5 /HPF NONE SEEN SQU) Indication for culture: RiskForSepsis-no oth srcSpecimen Description: CLEAN [id number] 01:44:00 Test Item Value Reference Range Interpretation Comments D-DIMER (test 1373 ng/mlFEU See_Comment HH Critical resu lt called to code = SYLVIE MICHEL Tby DDIMER) [id number] at 07/20/22Nurse r ead back result and tech confirmed it's correct? Y THROMBOSIS AND/OR PULMONAR Y EMBOLISM AND THE CLINICA L CUT- OFF VALUE FOR EXCLU KYARA (500 ng/mL FEU) OF T HESE CONDITIONSIS VA LIDATED BY THE MANUFACTURE R OF THE METHOD. A NEGAT REGINA D-DIMER RESULT WHEN COM BINED WITH A CLINICALASSESSM ENT OF LOW PRETEST PROBABI LITY HAS BEEN SHOWN TO H AVEA HIGH NEGATIVE PREDIC TIVE VALUE OF DVT OR PE. D -DIMER VALUES >500 ng/ mL FEU ARE NOT DIAGNOSTIC FOR DVT, PEor DIC WITHOU T OTHER CONFIRMATORY TE STS AND APPROPRIATECLIN ICAL EUALUATIONS. [A utomated message] The sy stem which generated this result transmitted ref erence range: <=500. T he reference range was not u sed to interpret this result as normal/abnormal . B-TYPE NATRIURETIC [id number] 01:32:00 Test Item Value Reference Range Interpretation Comments B-TYPE NATRIURETIC PEPTIDE (test 29.0 PG/ML 0-100 N code = BNP) BASIC METABOLIC [id number] 01:23:00 Test Item Value Reference Range Interpretation Comments SODIUM (test code = NA/ABG) 137 mmol/L 134-147 N POTASSIUM (test code = K/ABG) 3.7 mmol/L 3.4-5.0 N CHLORIDE (test code = CL/ABG) 103 mmol/L 100-108 N CREATININE ABG (test code = 0.5 mg/dL 0.6-1.0 L CREAABG) POC IONIZED CALCIUM (test code = 1.09 MMOL/L 1.12-1.32 L POCCA) POC GLUCOSE (test code = POCGLU) 151 MG/DL 70-110 H HEMOGLOBIN [id number] 01:23:00 Test Item Value Reference Range Interpretation Comments HEMOGLOBIN ABG (test code = 11.4 G/DL 11.0-15.0 N HGB/ABG) [id number] 01:23:00 Test Item Value Reference Range Interpretation Comments HEMATOCRIT (test code = HCT/ABG) 34 % 33.0-45.0 N POC LACTIC [id number] 01:23:00 Test Item Value Reference Range Interpretation Comments POC LACTIC ACID (test code = 1.1 mmol/l 0.9-1.7 N POCLAC) POC VENOUS BLOOD [id number] 01:23:00 Test Item Value Reference Range Interpretation Comments POC VENOUS BLOOD GAS PH (test 7.397 7.33-7.45 N code = POCPHV) POC VENOUS BLOOD GAS PCO2 (test 33.7 mmHg 43-47 L code = BCCRRM2J) POC VENOUS BLOOD GAS PO2 (test 76.5 mmHG 10-50 H code = GEELD6X) POC TCO2 VENOUS (test code = 21.8 TDUDAP6P) POC HCO3 VENOUS (test code = 20.8 MMOL/L 22-27 L ULFODM1K) POC BASE EXCESS VENOUS (test -4.1 MMOL/L -4.0-4.0 L code = POCBEV) POC O2 SATURATION VENOUS (test 95.3 % 60-80 H code = JZXW7UW) VENOUS BLOOD GAS FIO2 (test code 21 % = FIO2V) VENOUS BLOOD GAS SITE (test code Central Line = SITEV) - XR FLUOROSCOPY 0-60 [id number] 00:00:00 [facility] : 1995 Sex: F FAX: George Flores MD [phone] [place]: St: ADM FAX: Freddy Patino DO [phone] FAX: Sabrina Sow DO [phone] Name: RAYMOND HUBBARD [facility] : 1995 Age/S: 27/F [address] [place] [address] Unit #: [id number] Loc: G.[id number] [place] [address] Phys: Sabrina Tomlinson DO Acct: [id number] Dis Date: Status: ADM IN PHONE #: [phone] Exam Date: 07/20/20224 FAX #: [phone] Reason: REPAIR OF CEREBRAL SPINAL FLUID LEAK S/P LIBORIO EXAMS: CPT CODE: [id number] XR FLUOROSCOPY 0-60 MIN 00019 PROCEDURE INFORMATION: Exam: FL Fluoroscopy, Up to 1 Hour Physician Time; Radiologist Not Present For Fluoroscopy Exam date and time: 07/20/2022 2:44 PM Age: 27 years old Clinical indication: Pain; Pain: Repair of cerebral spinal fluid leak S/P laminectomy TECHNIQUE: Imaging protocol: Fluoroscopy , up to 1 hourphysician or other qualified health career technical education instructor time. This radiologist did not supervise thisprocedure. Exam supervised by facility personnel. Report for radiation dosage reporting and documentation only. COMPARISON: No relevant prior studies available. RADIATION DOSE METRICS: Fluoroscopy time(seconds): seconds= 28.2 sec Number of fluoro spot images: images= 3 Reference air kerma (HARVEY): 25.10 mgy FINDINGS: Procedural imaging: Fluoroscopy dosage documentation. See also separate procedure notes. Notes: Fluoroscopy supervised by facility personnel. See also separate procedure report. IMPRESSION: Fluoroscopy dosage documentation. See also separate procedure notes. at 0143 Reported and signed by: Jaren Adkins M.D. CC: George Flores; Freddy Shah DO; Sabrina Tomlinson DO Technologist: RT Jayshree(Lydia) Trnscrd Date/Time/By: 07/20/2022 (1540) : By: [email or web address] Orig Print D/T: S: 07/20/2022 (7124) PAGE 1 Signed Report- CT HEAD/BRAIN W/O [id number] 00:00:00[facility] : 1995 Sex: F Name: RAYMOND HUBBARD [facility] : 1995 Age/S: 27 / F [address] [place] [address] Unit #: [id number] Loc: [place] [address] Phys: Segun Negron MD Acct: [id number] Dis Date: Status: ADMIN PHONE #: [phone] Exam Date: 07/20/2022251 FAX #: [phone] Reason: headache EXAMS: CPT CODE: [id number] CT HEAD/BRAIN W/O CONT 23160 PROCEDURE INFORMATION: Exam: CT Head Without Contrast Exam date and time: 07/20/2022 2:42 AM Age: 27 years old Clinical indication: Pain; Headache TECHNIQUE: Imaging protocol: Computed tomography of the head without contrast. Radiation optimization: All CT scans at this facility use at least one of these dose optimization techniques: automated exposure cont rol; mA and/or kV adjustment per patient size (includes targeted exams where dose is matched to clinical indication); or iterative reconstruction. COMPARISON: No relevant prior studies available. FINDINGS: Brain: There is no evidence of subacute territorial infarct, hemorrhage, mass effect or midline shift. No extra-axial fluid collection. Please note that acute infarcts can be occult on CT scan. The velasquez white interfaces are maintained. The ventricles and basilar cisterns are unermarkable. Cerebral ventricles: Unremarkable for age. Paranasal sinuses: Visualized sinuses are unremarkable. No fluid levels. Mastoid air cells: Visualized mastoid air cells are well aerated. Bones/joints: Unremarkable.No acute fracture. Soft tissues: Unremarkable. IMPRESSION: No CT evidence of acute intracranial process. COMMENTS: If there is a persistent concern for acute intracranial process, emergent assessment with MRI or CTA is recommended. at 0803 Reported and signed by: Alejandra Zarco M.D. CC: George Flores; Sabrina Tomlinson DO; Segun Negron MD Technologist:Med Plascencia, RT(R)(CT) CTDI: DLP: Trnscb Date/Time: 07/20/2022 (802) [email or web address] Orig Print D/T: S: 07/20/2022 (802) PAGE 1 Signed Report- CTA CHEST FOR [id number] 00:00:00[facility] M[facility]HAV GIBBSName: RAYMOND HUBBARD : 1995 Sex: F Name: RAYMOND HUBBARD [facility] [place] [facility] : 1995 Age/S: 27 / F [address] [place] [address] Unit #: [id number] Loc: [place] [address] Phys: Segun Negron MD Acct: [id number] Dis Date: Status: ADMIN PHONE #: [phone] Exam Date: 07/20/2022251 FAX #: [phone] Reason: elevated dd, tachycardia EXAMS: CPT CODE: [id number] [place] [id number] PROCEDURE INFORMATION: Exam: CTA Chest With Contrast Exam date and time: 07/20/2022 2:46 AM Age: 27 years old Clinical indication: Abnormal findings; Abnormal diagnostic tests; Elevated d-dimer; Additional info: Elevated dd, tachycardia TECHNIQUE: Imaging protocol: Computed tomographic angiography of the chest with contrast. 3D rendering (Not supervised by radiologist): MIP and/or 3D reconstructed images were created by the technologist. Radiation optimization: All CT scans at this facility use at least one of these dose optimization techniques:automated exposure control; mA and/or kV adjustment per patient size (includes targeted exams where dose is matched to clinical indication); or iterative reconstruction. Contrast material: ISO 300; Contrast volume: 100 ml; Contrast route: INTRAVENOUS (IV); COMPARISON: CR XR CHEST 1V 07/20/2022 1:11 AM FINDINGS: Pulmonary arteries: Normal. No pulmonary emboli. Aorta: Unremarkable. No aortic aneurysm. No aortic dissection. Lungs: Unremarkable. No consolidation. No masses. Pleural spaces: Unremarkable. No pneumothorax. No pleural effusion. Heart: Unremarkable. No cardiomegaly. No pericardial effusion. Lymph nodes: Unremarkable. No enlarged lymph nodes. Bones/joints: Unremarkable. No acute fracture. Soft tissues: Hepatic steatosis. IMPRESSION: 1. No acute findings. Specifically, no CT evidence for pulmonary embolus. 2. Hepatic steatosis. at 0346 Reported and signed by: Mack Can M.D. CC: George Flores; Sabrina Tomlinson DO; Segun Negron MD Technologist:Med Plascencia, RT(R)(CT) CTDI: DLP: Trnscb Date/Time: 07/20/2022 (345) Moody Orig Print D/T: S: 07/20/2022 (345) PAGE 1 Signed Report- XR CHEST 1 [id number] 00:00:00 [facility] : 1995 Sex: F FAX: George Flores MD [phone] [place]: St: [facility] FAX: Sabrina Sow DO [phone] FAX: Segun Negron Name: RAYMOND HUBBARD [facility] : 1995 Age/S: 27/F [address] Unit #: [id number] Loc: [place] [address] Phys: Segun Negron MD Acct: [id number] Dis Date: Status: ADMIN PHONE #: [phone] Exam Date: 07/19/2022 0120 FAX #: [phone] Reason: sepsis EXAMS: CPT CODE: [id number] XR CHEST 1 V [id number] PROCEDURE INFORMATION: Exam: XR Chest Exam date and time: :11 AM Age: 27 years old Clinical indication: Other: Sepsis TECHNIQUE: Imaging protocol: Radiologicexam of the chest. Views: 1 view. COMPARISON: No relevant prior studies available. FINDINGS: Lungs: Mildly prominent interstitial lung markings bilaterally, which may represent interstitial edema, atelectasis or pneumonitis. Pleural spaces: No pleural effusion. No pneumothorax. Heart/Mediastinum: Cardiac and mediastinal contours within normal limits. Bones/joints: No acute osseous abnormality. IMPRESSION: Mildly prominent interstitial lung markings bilaterally, which may represent interstitial edema, atelectasis or pneumonitis. at 0127 Reported and signed by: Hardik Rain M.D. CC: George Flores; Sabrina Tomlinson DO; Segun Guaman Technologist: Kait Lo, RT(R); Dusty Ward RT(R) Trnscrd Date/Time/By: 07/20/2022 (0127): By: [email or web address] Orig Print D/T: S: 07/20/2022 (0128) PAGE 1 Signed ReportHEPATIC FUNCTION [id number] 23:21:00 Test Item Value Reference Range Interpretation Comments TOTAL PROTEIN (test code = PROT) 7.1 g/dL 6.4-8.2 N ALBUMIN (test code = ALB) 3.70 g/dL 3.4-5.0 N BILIRUBIN TOTAL (test code = BILT) 0.30 mg/dL 0.0-1.0 N BILIRUBIN DIRECT (test code = 0.10 MG/DL 0.0-0.30 N BILD) SGOT/AST (test code = AST) 18 IUnit/L 15-37 N SGPT/ALT (test code = ALT) 23 IUnit/L 30-65 L ALKALINE PHOSPHATASE TOTAL (test 63 IUnit/L 20-125 N code = ALKP) BILIRUBIN INDIRECT (test code = 0.20 MG/DL BILIND) TROP-I HIGH [id number] 23:21:00 Test Item Value Reference Range Interpretation Comments TROP-I HIGH < 3 ng/L 0-34 N CAUTION: Units of the SENSITIVITY (test current te st methodology code = TROPIHS) (ng/L) diffe rfrom the prior test meth odology (ng/mL) by a fa ctor of 1000. 99t h Percentile Uppe r Reference Limit (URL): Fe males: 34 ng/LMales: 54 n g/L In order to distin guish acute elevations of h igh sensitivitytrop onin from other clinical conditions, the FourthUnive rsal Definition of M yocardial Infarction stressesclinica l assessment and the demonstration o f a rise and/orfall in s erial troponin result s above the URL. These resu lts were obtained using Siemens Atellica IM TnI Hreagent. Results from di fferent methodologies s hould not becompared to o ne another as quantitative results and URLs mayvar y by method. LACTIC [id number] 23:17:00 Test Item Value Reference Range Interpretation Comments LACTIC ACID (test code = LACT) 1.7 mmol/L 0.4-1.9 N BASIC METABOLIC [id number] 22:16:00 Test Item Value Reference Range Interpretation Comments SODIUM (test code = 137 mEq/L 134-147 N NA) POTASSIUM (test code 3.9 mEq/L 3.4-5.0 N = K) CHLORIDE (test code 105 mEq/L 100-108 N = CL) CARBON DIOXIDE (test 25 mEq/l 21-33 N code = CO2) ANION GAP (test code 11 0-20 N = GAP) GLUCOSE (test code = 133 mg/dL 70-110 H GLU) BLOOD UREA NITROGEN 9 mg/dL 7-18 N (test code = BUN) GLOMERULAR 102.9 110-120 L The Glomerular FILTRATION RATE Filtration R ate is a (test code = GFR) calculated parameterbased on serum Creatinine, pat ient age and sex. GFR va luesless than 60 mL/min/ 1.73 square meters a re indicative ofCh ronic Kidney Disease. Values less than 15 mL/min/1.73squa re meters indicate Kidney failure. The calculation forGFR is based on the CKD-EPI (2020) calculat ion. This formulais race indifferent and is the recommended for chavez for GFRby the Natio nal Kidney Foundati on for Adults.The GFR will not calculate if th e sex is unknown or if thepatient's ag e is <18 years. CREATININE (test 0.8 mg/dL 0.6-1.3 N code = CREAT) CALCIUM (test code = 8.7 mg/dL 8.0-10.5 N CA) PROTHROMBIN [id number] 22:15:00 Test Item Value Reference Range Interpretation Comments PROTHROMBIN TIME 14.5 SECONDS 9.3-12.9 H PATIENT (test code = PTP) INTERNATIONAL NORMAL 1.3 0.8-1.2 H TARGET INR BY RATIO (test code = INDICATIO N Indication INR) INR1. Prophylax is of venous thrombos is 2.0 - 3.0 (orthoped ic surgery), Proph ylaxis of venous throm bosis (other than hig h-risk surgery), Treat ment of Deep Vein Thrombosis/Pulm onary Embolism, Preve ntion of systemic emb olism - Tissue heart va lves, Acute Myocardia l Infarction (to prevent systemic emboli sm), Valvular heart disease, Atrial Fibrillation, Bileaflet mecha nical valve in aortic position.2. Mec hanical prosthetic valv es (high risk), 2. 5 - 3.5 Presence of Lup us Anticoagulant o r Antiphospholipi d Antibodies, Pre vention of systemic emb olism - Acute Myocardia l Infarction (to prevent recurrent infar ct). THROMBOPLASTIN TIME [id number] 22:15:00 Test Item Value Reference Range Interpretation Comments THROMBOPLASTIN TIME 26.9 Seconds 25.0-39.5 N Therape utic Range: PARTIAL (test code = 50.4 - 88.3 Seconds PTT) Effective 12/03/2018 CBC W/AUTO [id number] 22:07:00 Test Item Value Reference Range Interpretation Comments WHITE BLOOD CELL (test code = 24.7 x10 3/uL 4.5-11.0 H WBC) RED BLOOD CELL (test code = 3.71 x10 6/uL 3.54-5.02 N RBC) HEMOGLOBIN (test code = HGB) 10.9 g/dL 11.0-15.0 L HEMATOCRIT (test code = HCT) 32.9 % 33.0-45.0 L MEAN CELL VOLUME (test code = 88.7 fL 81.0-99.0 N MCV) MEAN CELL HGB (test code = 29.4 pg 27.0-33.0 N MCH) MEAN CELL HGB CONCETRATION 33.1 g/dL 33.0-37.0 N (test code = MCHC) RED CELL DISTRIBUTION WIDTH CV 12.7 % 11.5-14.5 N (test code = RDW) RED CELL DISTRIBUTION WIDTH SD 41.6 fL 37.0-54.0 N (test code = RDW-SD) PLATELET COUNT (test code = 308 x10 3/uL 150-400 N PLT) MEAN PLATELET VOLUME (test 9.5 fL 7.0-9.0 H code = MPV) NEUTROPHIL % (test code = NT%) 88.0 % 56.0-77.0 H IMMATURE GRANULOCYTE % (test 0.8 % 0.0-2.0 N code = IG%) LYMPHOCYTE % (test code = LY%) 3.9 % 14.0-32.0 L MONOCYTE % (test code = MO%) 7.1 % 4.8-9.0 N EOSINOPHIL % (test code = EO%) 0.0 % 0.3-3.7 L BASOPHIL % (test code = BA%) 0.2 % 0.0-2.0 N NUCLEATED RBC % (test code = 0.0 % 0-0 N NRBC%) NEUTROPHIL # (test code = NT#) 21.77 x10 3/uL 2.0-7.6 H IMMATURE GRANULOCYTE # (test 0.20 x10 3/uL 0.00-0.03 H code = IG#) LYMPHOCYTE # (test code = LY#) 0.96 x10 3/uL 1.0-3.8 L MONOCYTE # (test code = MO#) 1.75 x10 3/uL 0.1-0.8 H EOSINOPHIL # (test code = EO#) 0.01 x10 3/uL 0.0-0.2 N BASOPHIL # (test code = BA#) 0.05 x10 3/uL 0.0-0.2 N NUCLEATED RBC # (test code = 0.00 x10 3/uL 0.0-0.1 N NRBC#) MANUAL DIFF REQUIRED (test NO code = MDIFF) CBC W/AUTO [id number] 08:48:00 Test Item Value Reference Range Interpretation Comments WHITE BLOOD CELL (test code = 10.6 x10 3/uL 4.5-11.0 WBC) RED BLOOD CELL (test code = 3.53 x10 6/uL 3.54-5.02 L RBC) HEMOGLOBIN (test code = HGB) 10.7 g/dL 11.0-15.0 L HEMATOCRIT (test code = HCT) 32.7 % 33.0-45.0 L MEAN CELL VOLUME (test code = 92.6 fL 81.0-99.0 N MCV) MEAN CELL HGB (test code = MCH) 30.3 pg 27.0-33.0 N MEAN CELL HGB CONCETRATION 32.7 g/dL 33.0-37.0 L (test code = MCHC) RED CELL DISTRIBUTION WIDTH CV 13.2 % 11.5-14.5 N (test code = RDW) RED CELL DISTRIBUTION WIDTH SD 44.9 fL 37.0-54.0 N (test code = RDW-SD) PLATELET COUNT (test code = 268 x10 3/uL 150-400 N PLT) MEAN PLATELET VOLUME (test code 10.5 fL 7.0-9.0 H = MPV) NEUTROPHIL % (test code = NT%) 70.4 % 56.0-77.0 N IMMATURE GRANULOCYTE % (test 0.4 % 0.0-2.0 N code = IG%) LYMPHOCYTE % (test code = LY%) 20.0 % 14.0-32.0 N MONOCYTE % (test code = MO%) 8.6 % 4.8-9.0 N EOSINOPHIL % (test code = EO%) 0.4 % 0.3-3.7 N BASOPHIL % (test code = BA%) 0.2 % 0.0-2.0 N NUCLEATED RBC % (test code = 0.0 % 0-0 N NRBC%) NEUTROPHIL # (test code = NT#) 7.49 x10 3/uL 2.0-7.6 N IMMATURE GRANULOCYTE # (test 0.04 x10 3/uL 0.00-0.03 H code = IG#) LYMPHOCYTE # (test code = LY#) 2.13 x10 3/uL 1.0-3.8 N MONOCYTE # (test code = MO#) 0.92 x10 3/uL 0.1-0.8 H EOSINOPHIL # (test code = EO#) 0.04 x10 3/uL 0.0-0.2 N BASOPHIL # (test code = BA#) 0.02 x10 3/uL 0.0-0.2 N NUCLEATED RBC # (test code = 0.00 x10 3/uL 0.0-0.1 N NRBC#) MANUAL DIFF REQUIRED (test code NO = MDIFF) BASIC METABOLIC [id number] 07:25:00 Test Item Value Reference Range Interpretation Comments SODIUM (test code = 141 mEq/L 134-147 N NA) POTASSIUM (test code 4.2 mEq/L 3.4-5.0 N = K) CHLORIDE (test code 105 mEq/L 100-108 N = CL) CARBON DIOXIDE (test 28 mEq/l 21-33 N code = CO2) ANION GAP (test code 12 0-20 N = GAP) GLUCOSE (test code = 94 mg/dL 70-110 N GLU) BLOOD UREA NITROGEN 9 mg/dL 7-18 N (test code = BUN) GLOMERULAR 125.3 110-120 H The Glomerular FILTRATION RATE Filtration R ate is a (test code = GFR) calculated parameterbased on serum Creatinine, pat ient age and sex. GFR va luesless than 60 mL/min/ 1.73 square meters a re indicative ofCh ronic Kidney Disease. Values less than 15 mL/min/1.73squa re meters indicate Kidney failure. The calculation forGFR is based on the CKD-EPI (2020) calculat ion. This formulais race indifferent and is the recommended for chavez for GFRby the Natio nal Kidney Foundati on for Adults.The GFR will not calculate if th e sex is unknown or if thepatient's ag e is <18 years. CREATININE (test 0.6 mg/dL 0.6-1.3 N code = CREAT) CALCIUM (test code = 8.2 mg/dL 8.0-10.5 N CA) CBC W/AUTO [id number] 07:50:00 Test Item Value Reference Range Interpretation Comments WHITE BLOOD CELL (test code = 18.2 x10 3/uL 4.5-11.0 H WBC) RED BLOOD CELL (test code = 3.94 x10 6/uL 3.54-5.02 N RBC) HEMOGLOBIN (test code = HGB) 11.7 g/dL 11.0-15.0 N HEMATOCRIT (test code = HCT) 35.7 % 33.0-45.0 N MEAN CELL VOLUME (test code = 90.6 fL 81.0-99.0 N MCV) MEAN CELL HGB (test code = 29.7 pg 27.0-33.0 N MCH) MEAN CELL HGB CONCETRATION 32.8 g/dL 33.0-37.0 L (test code = MCHC) RED CELL DISTRIBUTION WIDTH CV 12.7 % 11.5-14.5 N (test code = RDW) RED CELL DISTRIBUTION WIDTH SD 42.1 fL 37.0-54.0 N (test code = RDW-SD) PLATELET COUNT (test code = 288 x10 3/uL 150-400 N PLT) MEAN PLATELET VOLUME (test 10.5 fL 7.0-9.0 H code = MPV) NEUTROPHIL % (test code = NT%) 88.6 % 56.0-77.0 H IMMATURE GRANULOCYTE % (test 0.5 % 0.0-2.0 N code = IG%) LYMPHOCYTE % (test code = LY%) 4.8 % 14.0-32.0 L MONOCYTE % (test code = MO%) 6.0 % 4.8-9.0 N EOSINOPHIL % (test code = EO%) 0.0 % 0.3-3.7 L BASOPHIL % (test code = BA%) 0.1 % 0.0-2.0 N NUCLEATED RBC % (test code = 0.0 % 0-0 N NRBC%) NEUTROPHIL # (test code = NT#) 16.11 x10 3/uL 2.0-7.6 H IMMATURE GRANULOCYTE # (test 0.09 x10 3/uL 0.00-0.03 H code = IG#) LYMPHOCYTE # (test code = LY#) 0.88 x10 3/uL 1.0-3.8 L MONOCYTE # (test code = MO#) 1.10 x10 3/uL 0.1-0.8 H EOSINOPHIL # (test code = EO#) 0.00 x10 3/uL 0.0-0.2 N BASOPHIL # (test code = BA#) 0.02 x10 3/uL 0.0-0.2 N NUCLEATED RBC # (test code = 0.00 x10 3/uL 0.0-0.1 N NRBC#) MANUAL DIFF REQUIRED (test NO code = MDIFF) BASIC METABOLIC [id number] 07:36:00 Test Item Value Reference Range Interpretation Comments SODIUM (test code = 142 mEq/L 134-147 N NA) POTASSIUM (test code 4.2 mEq/L 3.4-5.0 N = K) CHLORIDE (test code 108 mEq/L 100-108 N = CL) CARBON DIOXIDE (test 24 mEq/l 21-33 N code = CO2) ANION GAP (test code 14 0-20 N = GAP) GLUCOSE (test code = 114 mg/dL 70-110 H GLU) BLOOD UREA NITROGEN 8 mg/dL 7-18 N (test code = BUN) GLOMERULAR 102.9 110-120 L The Glomerular FILTRATION RATE Filtration R ate is a (test code = GFR) calculated parameterbased on serum Creatinine, pat ient age and sex. GFR va luesless than 60 mL/min/ 1.73 square meters a re indicative ofCh ronic Kidney Disease. Values less than 15 mL/min/1.73squa re meters indicate Kidney failure. The calculation forGFR is based on the CKD-EPI (2020) calculat ion. This formulais race indifferent and is the recommended for chavez for GFRby the Natio nal Kidney Foundati on for Adults.The GFR will not calculate if th e sex is unknown or if thepatient's ag e is <18 years. CREATININE (test 0.8 mg/dL 0.6-1.3 N code = CREAT) CALCIUM (test code = 8.7 mg/dL 8.0-10.5 N CA) - XR FLUOROSCOPY 0-60 [id number] 00:00:00 [facility] : 1995 Sex: F FAX: Sabrina Sow DO [phone] [place]: St: ADM Name: RAYMOND HUBBARD [facility] : 1995 Age/S: 27/F [address] [place] [address] Unit #: [id number] Loc: [place] [address] Phys: Sabrina Tomlinson DO Acct: [id number] Dis Date: Status: ADM IN PHONE #: [phone] Exam Date: 07/10/2022 1115 FAX #: [phone] Reason: LUMBAR FOUR TO FIVE DISC HERNIATION WITH RADICU EXAMS: CPT CODE: [id number] XR FLUOROSCOPY 0-60 MIN [id number] PROCEDURE INFORMATION: Exam: FL Fluoroscopy, Up to 1 Hour Physician Time; Radiologist Not Present For Fluoroscopy Exam date and time: 07/10/2022 10:19 AM Age: 27 years old Clinical indication: Other intervertebral disc displacement, lumbar region; Radiculopathy, lumbar region; Vertebrogenic low back pain; Additional info: 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 This radiologist did not supervise this procedure. Exam supervised by facility personnel. Report for radiation dosage reporting and documentation only. Other technique: Radiologist was not present during this procedure. COMPARISON: No relevant prior studies available. RADIATION DOSE METRICS: Fluoroscopy time (seconds): seconds= 4.17 seconds Number of fluoro spot images: images= 1219 Reference air kerma (HARVEY): 9.16 mGy FINDINGS: Procedural imaging: Fluoroscopic assistance was provided. Radiologist was not present during the procedure. Intraoperative review of these images was performed by the operating physician. Please refer to the procedure report for further details. Notes: Fluoroscopy supervised by facility personnel. See also separate procedure report. IMPRESSION: Fluoroscopy dosage documentation. See also separate procedure notes. at 1221 Reported and signed by: Lenny Silver M.D. CC: Sabrina Tomlinson DO Technologist: BOO Schroeder) Trndavidrd Date/Time/By: 07/10/2022 (1228) : By: [email or web address] Orig Print D/T: S: 07/10/2022 (4674) PAGE 1 Signed Report- XR FLUOROSCOPY 0-60 [id number] 00:00:00 [facility] : 1995 Sex: F FAX: Sabrina Sow DO [phone] [place]: St: ADM Name: [facility] 1995 Age/S: 27/F [address] [place] [address] Unit #: [id number] Loc: [place] [address] Phys: Sabrina Tomlinson DO Acct: [id number] Dis Date: Status: ADM IN PHONE #: [phone] Exam Date: 07/10/2022 1115 FAX #: [phone] Reason: LUMBAR FOUR TO FIVE DISC HERNIATION WITH RADICU EXAMS: CPT CODE: [id number] XR FLUOROSCOPY 0-60 MIN 38497 PROCEDURE INFORMATION: Exam: FL Fluoroscopy, Up to 1 Hour Physician Time; Radiologist Not Present For Fluoroscopy Exam date and time: 07/10/2022 8:32 AM Age: 27 years old Clinical i ndication: Other intervertebral disc displacement, lumbar region; Radiculopathy, lumbar region; Vertebrogenic low back pain; Additional info: 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 This radiologist did not supervise this procedure. Exam supervised by facility personnel.Report for radiation dosage reporting and documentation only. Other technique: Radiologist was not present during this procedure. COMPARISON: No relevant prior studies available. RADIATION DOSE METRICS: Fluoroscopy time (seconds): seconds= 6.0 seconds Number of fluoro spot images: images= 3 Reference air kerma (HARVEY): 4.85 mGy FINDINGS: Procedural imaging: Fluoroscopic assistance was provided. Radiologist was not present during the procedure. Intraoperative review of these images was performed by the operating physician. Please refer to the procedure report for further details. Notes: Fluoroscopy pitts pervised by facility personnel. See also separate procedure report. IMPRESSION: Fluoroscopy dosage documentation. See also separate procedure notes. at 1154 Reported and signed by: Lenny Silver M.D. CC: Sabrina Tomlinson DO Technologist: RT Alexandre(R) Trnscrd Date/Time/By: 07/10/2022 (2268) : By: [email or web address] Print D/T: S: 07/10/2022 (1096) PAGE 1 Signed Report PROTHROMBIN [id number] 11:08:00 Test Item Value Reference Range Interpretation Comments PROTHROMBIN TIME 12.7 SECONDS 9.3-12.9 N PATIENT (test code = PTP) INTERNATIONAL NORMAL 1.1 0.8-1.2 N TARGET INR BY RATIO (test code = INDICATIO N Indication INR) INR1. Prophylax is of venous thrombos is 2.0 - 3.0 (orthoped ic surgery), Proph ylaxis of venous throm bosis (other than hig h-risk surgery), Treat ment of Deep Vein Thrombosis/Pulm onary Embolism, Preve ntion of systemic emb olism - Tissue heart va lves, Acute Myocardia l Infarction (to prevent systemic emboli sm), Valvular heart disease, Atrial Fibrillation, Bileaflet mecha nical valve in aortic position.2. Mec hanical prosthetic valv es (high risk), 2. 5 - 3.5 Presence of Lup us Anticoagulant o r Antiphospholipi d Antibodies, Pre vention of systemic emb olism - Acute Myocardia l Infarction (to prevent recurrent infar ct). THROMBOPLASTIN TIME [id number] 11:08:00 Test Item Value Reference Range Interpretation Comments THROMBOPLASTIN TIME 28.1 Seconds 25.0-39.5 N Therape utic Range: PARTIAL (test code = 50.4 - 88.3 Seconds PTT) Effective 12/03/2018 COVID 19 Asymptomatic IH [id number] 11:04:00 Test Item Value Reference Range Interpretation Comments COVID 19 Asymptomatic Negative Negative A nega tive result is IH AG (test code = presumpti ve and should COVNONPUIAG) be confirmedwit h an FDA authorized mole cular assay, if neces blade forpatient horace gement.A positive result does not rule out co-inf ections withother patho gens.This test detects pablo th viable (live) and non-viable,SARS -CoV, and SARS-CoV-2. Antwon t performance dep ends on theamount of vi clara (antigen) in th e sample.This antwon t has not been FDA cleare d or approved; the t est hasbeen authori zed by FDA under an Em ergency Use Authorizati on(EUA) for use by labo ratories certified under the CLIA thatmeet the requirements to perform moderate, high or waivedcomplexit y tests. BASIC METABOLIC [id number] 11:03:00 Test Item Value Reference Range Interpretation Comments SODIUM (test code = 136 mEq/L 134-147 N NA) POTASSIUM (test code 3.7 mEq/L 3.4-5.0 N = K) CHLORIDE (test code 105 mEq/L 100-108 N = CL) CARBON DIOXIDE (test 26 mEq/l 21-33 N code = CO2) ANION GAP (test code 8 0-20 N = GAP) GLUCOSE (test code = 89 mg/dL 70-110 N GLU) BLOOD UREA NITROGEN 12 mg/dL 7-18 N (test code = BUN) GLOMERULAR 102.9 110-120 L The Glomerular FILTRATION RATE Filtration R ate is a (test code = GFR) calculated parameterbased on serum Creatinine, pat ient age and sex. GFR va luesless than 60 mL/min/ 1.73 square meters a re indicative ofCh ronic Kidney Disease. Values less than 15 mL/min/1.73squa re meters indicate Kidney failure. The calculation forGFR is based on the CKD-EPI (2020) calculat ion. This formulais race indifferent and is the recommended for chavez for GFRby the [facility] Kidney Foundati on for Adults.The GFR will not calculate if th e sex is unknown or if thepatient's ag e is <18 years. CREATININE (test 0.8 mg/dL 0.6-1.3 N code = CREAT) CALCIUM (test code = 9.6 mg/dL 8.0-10.5 N CA) HCG SERUM [id number] 11:01:00 Test Item Value Reference Range Interpretation Comments HCG SERUM QUAL (test code = SERUM NEGATIVE NEGATIVE HCGQL) CBC W/AUTO [id number] 10:58:00 Test Item Value Reference Range Interpretation Comments WHITE BLOOD CELL (test code = 11.3 x10 3/uL 4.5-11.0 H WBC) RED BLOOD CELL (test code = 4.19 x10 6/uL 3.54-5.02 N RBC) HEMOGLOBIN (test code = HGB) 12.3 g/dL 11.0-15.0 N HEMATOCRIT (test code = HCT) 37.3 % 33.0-45.0 N MEAN CELL VOLUME (test code = 89.0 fL 81.0-99.0 N MCV) MEAN CELL HGB (test code = MCH) 29.4 pg 27.0-33.0 N MEAN CELL HGB CONCETRATION 33.0 g/dL 33.0-37.0 N (test code = MCHC) RED CELL DISTRIBUTION WIDTH CV 12.6 % 11.5-14.5 N (test code = RDW) RED CELL DISTRIBUTION WIDTH SD 41.0 fL 37.0-54.0 N (test code = RDW-SD) PLATELET COUNT (test code = 306 x10 3/uL 150-400 N PLT) MEAN PLATELET VOLUME (test code 10.2 fL 7.0-9.0 H = MPV) NEUTROPHIL % (test code = NT%) 69.0 % 56.0-77.0 N IMMATURE GRANULOCYTE % (test 0.3 % 0.0-2.0 N code = IG%) LYMPHOCYTE % (test code = LY%) 22.1 % 14.0-32.0 N MONOCYTE % (test code = MO%) 7.3 % 4.8-9.0 N EOSINOPHIL % (test code = EO%) 1.0 % 0.3-3.7 N BASOPHIL % (test code = BA%) 0.3 % 0.0-2.0 N NUCLEATED RBC % (test code = 0.0 % 0-0 N NRBC%) NEUTROPHIL # (test code = NT#) 7.78 x10 3/uL 2.0-7.6 H IMMATURE GRANULOCYTE # (test 0.03 x10 3/uL 0.00-0.03 N code = IG#) LYMPHOCYTE # (test code = LY#) 2.49 x10 3/uL 1.0-3.8 N MONOCYTE # (test code = MO#) 0.82 x10 3/uL 0.1-0.8 H EOSINOPHIL # (test code = EO#) 0.11 x10 3/uL 0.0-0.2 N BASOPHIL # (test code = BA#) 0.03 x10 3/uL 0.0-0.2 N NUCLEATED RBC # (test code = 0.00 x10 3/uL 0.0-0.1 N NRBC#) MANUAL DIFF REQUIRED (test code NO = MDIFF) - MRI L-SPINE W WO [id number] 00:00:00 [facility] : 1995 Sex: F FAX: Sabrina Sow DO [phone] [place]: St: REG Name: RAYMOND HUBBARD [facility] : 1995 Age/S: 26/F [address] [place] [address] Unit #: [id number] Loc: [place] [address] Phys: Sabrina Tomlinson DO Acct: [id number] Dis Date: Status: REG CLI PHONE #: [phone] Exam Date: 05/09/2022 1245 FAX #: [phone] Reason: M54.50 LOW BACK PAIN EXAMS: CPT CODE: [id number] MRI L-SPINE W WO CON [id number] PROCEDURE INFORMATION: Exam: MR Lumbar Spine Without and With Contrast Exam date and time: 05/09/2022 11:58 AMAge: 26 years old Clinical indication: Low back pain, unspecified; Additional info: M54.50 low back pain TECHNIQUE: Imaging protocol: Magnetic resonance imaging of the lumbar spine without and with cont rast. Contrast material: DOTAREM; Contrast volume: 19 ml; Contrast route: INTRAVENOUS (IV); COMPARISON: No relevant prior studies available. FINDINGS: Bones/joints: There is no fracture, listhesis or lysis. There is no discitis or osteomyelitis. Spinal cord: The conus medularis is normally postioned and there is no enhancing intrathecal mass. L1-L2: No significant disc disease. No significant spinal canal stenosis. No neural foraminal stenosis. L2-L3: No significant disc disease. No significant spinal canal stenosis. No neural foraminal stenosis. L3-L4: There is a 2 mm bulging annulus with a central peripheral annular fissure and minimal spinal stenosis. L4-L5: The disc space is degenerated and narrowed and there is a large central and left lateral extruded and sequestered disc herniation whichis extended inferior to disc level for a total length of 2.2 cm. The AP/transverse diameter is 1.1 x1.3 cm with severe compromise of the left L5 nerve root throughout its course in the proximal mid and distal lateral recess. There is flattening of the ventral lateral aspect of the thecal sac with compromise of the S1 nerve root at the L5- S1 disc space as well. There is minimal proximal left foraminal stenosis. L5-S1: The disc space is desiccated and narrowed and a component of L4-L5 disc herniationextends caudally to the L5-S1 disc level compromising the left S1 nerve root within the lateral recess the AP/transverse diameter is 7 x 10 mm. Soft tissues: The psoas and spinae erectae muscles are normal. The parially visualized sacral iliac joints are normal. IMPRESSION: L4-L5: The disc space is degenerated and narrowed and there is a large central and left lateral extruded and sequestered disc herniation which is extended inferior to disc level for a total length of 2.2 cm. The AP/transverse diameter is 1.1 x 1.3 cm with severe compromise of the left L5 nerve root throughout its course PAGE 1 Signed Report (CONTINUED) FAX: Sabrina Sow DO [phone] [place]: St: REG Name: RAYMOND HUBBARD [facility] Madhav Gibbs : 1995 Age/S: 26/F [address] [place] [address] Unit #: [id number] Loc: [place] [address] Phys: Sabrina Tomlinson DO Acct: [id number] Dis Date: Status: REG CLI PHONE #: [phone] Exam Date: 05/09/2022 1245 FAX #: [phone] Reason: M54.50 LOW BACK PAIN EXAMS: CPT CODE: [id number] MRI L-SPINE W WO CON [id number] (Continued) in the proximal mid and distal lateral recess. There is flattening of the ventral lateral aspect of the thecal sac with compromise of the S1 nerve root at the L5-S1 discspace as well. There is minimal proximal left foraminal stenosis. L5-S1: The disc space is desiccated and narrowed and a component of L4-L5 disc herniation extends caudally to the L5-S1 disc level compromising the left S1 nerve root within the lateral recess the AP/transverse diameter is 7 x 10 mm. at 1252 Reported and signed by: Sherwin Figueroa M.D. CC: Sabrina Tomlinson DO Technologist: RT Kierra(Lydai)(MR) Trnscrd Date/Time/By: 05/09/2022 (0492) : By: [email or web address] Orig Print D/T: S: 05/09/2022 (4039) PAGE 2 Signed ReportPOCT [id number] 13:34:00 Test Item Value Reference Range Interpretation Comments POCT PREG (test code = 1605) negative On board controls acceptable with present C Line (test code = 3574) POCT PREG LOT # (test code = 3575) [id number] POCT PREG TEST DATE (test 07/19/2023 code = 3576) Lab Interpretation (test code = Normal 26719-9) [facility]
[2022-08-22] MEDS ORDERED: MORPHINE 4 MG/ML SYR ONE ×2 (00:04→01:12)
[2022-08-22] MEDS ORDERED: NA CHLORIDE 0.9% 1,000 ML ONE (00:04)
[2022-08-22] MEDS ORDERED: ONDANSETRON 4 MG/2 ML VIAL ONE (00:14)
[2022-08-22 01:02] LABS: Albumin 2.9 g/dL (3.4-5.0); Bilirubin Total 1.1 mg/dL (0.2-1.0); Potassium 3.5 mmol/L (3.5-5.1); Protein, Total 7.5 g/dL (6.4-8.2)
[2022-08-22 01:20] LABS: Absolute Lymphocytes (CBC) 1.5 K/uL (0.7-4.9); Hematocrit 28.7 % (36.0-45.0); MCV 87.9 fL (80-100); MPV 7.2 fL (7.6-11.3); RBC Red Blood Cell Count 3.27 M/uL (3.86-4.86)
[2022-08-22 01:22] LABS: Urine Blood Negative (Negative); Urine Glucose Negative (Negative); Urine Protein Negative (Negative); Urine pH 7.5 (5.0-7.0)
[2022-08-22 01:48] LABS: Urine Bacteria None Seen /HPF (<20); Urine Mucus Slight /HPF (None Seen); Urine RBC None Seen /HPF (None Seen)
[2022-08-22] MEDS ORDERED: HYDROMORPHONE HCL 1 MG/ML INJ ONE (02:22)
--- NOTE | 2022-08-22 02:59 | EDPHYS ---
Physician Documentation [facility] Name: Edith Holcomb Age: 27 yrs Sex: Female : 1995 Arrival Date: 08/21/2022 Time: 23:36 Bed 20 Private MD: ED Physician Kendrick Purvis HPI: 08/22 00:00 This 27 yrs old Female presents to ER via EMS with complaints of Back Pain. cp 00:00 The patient presents with pain. cp 00:00 The symptoms are located in the low back. cp 00:00 Onset: The symptoms/episode began/occurred gradually, and became worse today. The pain cp does not radiate. 00:00 Associated signs and symptoms: Pertinent negatives: abdominal pain, chest pain, cp constipation, fever, hematuria, incontinence, numbness, vomiting, weakness. 00:03 Patient reports having lower back surgery to include lumbar laminectomy around the end cp of June. Patient reports subsequently developing a spinal leak and infection post surgery and is currently on IV antibiotics. Patient presents to ED with worsening lower back pain tonight. Patient reports at recent f/u visit, surgeon planned to place new sutures in surgical wound to stop spinal leakage, but was unable due to not being able to able to numb area. 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 - Social history:: Smoking status: Patient denies any tobacco usage or history of. ROS: 08/22 00:05 Back: Positive for pain at rest, pain with movement. cp 00:05 Eyes: Negative for injury, pain, redness, and discharge. cp 00:05 Constitutional: Negative for body aches, chills, fever, poor PO intake. 00:05 Abdomen/GI: Negative for abdominal pain, nausea, vomiting, and diarrhea, constipation, bowel incontinence. 00:05 ENT: Negative for drainage from ear(s), ear pain, sore throat. cp 00:05 Cardiovascular: Negative for chest pain, palpitations. 00:05 Respiratory: Negative for cough, shortness of breath, wheezing. 00:05 : Negative for urinary symptoms, bladder incontinence, vaginal bleeding, vaginal discharge. 00:05 Neuro: Negative for altered mental status, dizziness, headache, numbness, tingling, weakness. 00:05 All other systems are negative. cp Exam: 00:10 Constitutional: The patient appears in no acute distress, alert, awake, cp non-diaphoretic, non-toxic, well developed, well nourished, obese, uncomfortable. 00:10 Head/Face: Normocephalic, atraumatic. cp 00:10 Eyes: Periorbital structures: appear normal, Conjunctiva: normal, no exudate, no injection, Sclera: no appreciated abnormality, Lids and lashes: appear normal, bilaterally. 00:10 ENT: External ear(s): are unremarkable, Nose: is normal, Mouth: Lips: moist, Oral mucosa: pink and intact, moist, Posterior pharynx: Airway: no evidence of obstruction, patent. 00:10 Neck: ROM/movement: is normal, is supple, without pain, no range of motions limitations. 00:10 Chest/axilla: Inspection: normal. 00:10 Cardiovascular: Rate: normal, Rhythm: regular. 00:10 Respiratory: the patient does not display signs of respiratory distress, Respirations: normal, no use of accessory muscles, no retractions, labored breathing, is not present, Breath sounds: are clear throughout, no decreased breath sounds, no stridor. 00:10 Abdomen/GI: Inspection: abdomen appears normal, Bowel sounds: active, all quadrants, Palpation: abdomen is soft and non-tender, in all quadrants. 00:10 Back: pain, that is severe, of the lumbar area, ROM is painful, with all movement, Straight leg raises: of both lower extremities does not illicit pain. 00:10 Skin: surgical wound of lumbar area appears with no erythema, sutures are intact, no swelling noted and no drainage expressed from site. 00:10 Neuro: Orientation: to person, place \T\ time. Mentation: is normal, Motor: moves all fours, strength is normal, Sensation: is normal, Deep tendon reflexes are 2+ (normal) in the right patellar, right Achilles, left patellar and left Achilles. Vital Signs: 08/21 23:41 BP 156 / 95; Pulse 88; Resp 20 S; Temp 98.4(O); Pulse Ox 100% on R/A; Weight 91.17 kg as6 (R); Height 5 ft. 4 in. (162.56 cm) (R); Pain 7/10; 08/22 01:00 BP 143 / 76; Pulse 68; Resp 18 S; Pulse Ox 99% on R/A; as6 02:00 BP 148 / 88; Pulse 71; Resp 17 S; Pulse Ox 100% on R/A; as6 03:00 BP 127 / 67; Pulse 68; Resp 18 S; Pulse Ox 97% on R/A; as6 08/21 23:41 Body Mass Index 34.50 (91.17 kg, 162.56 cm) as6 MDM: 08/21 23:41 Patient medically screened. cp 08/22 00:00 Differential diagnosis: Cholelithiasis chronic back pain, Epidural or Perispinal Abcess cp Fracture Pyelonephritis Ureterolithiasis sepsis. 02:58 Data reviewed: vital signs, nurses notes, lab test result(s), radiologic studies, CT cp scan. 02:58 Counseling: I had a detailed discussion with the patient and/or guardian regarding: the cp historical points, exam findings, and any diagnostic results supporting the discharge/admit diagnosis, lab results, radiology results, the need for outpatient follow up, neurosugeon, to return to the emergency department if symptoms worsen or persist or if there are any questions or concerns that arise at home. 08/21 23:53 Order name: CBC with Diff; Complete Time: 01:52 cp 08/22 01:53 Interpretation: Normal except: WBC 15.00; RBC 3.27; HGB 9.6; HCT 28.7; MPV 7.2; BO% cp 80.3; LYM% 10.0; NEUT A 12.0. 08/21 23:53 Order name: CMP; Complete Time: 01:52 cp 08/22 01:53 Interpretation: Normal except: CL 109; GLUC 108; AST 8; BILIT 1.1; ALB 2.9; GLOB 4.6; cp A/G 0.6. 08/21 23:53 Order name: Lipase; Complete Time: 01:52 cp 08/21 23:53 Order name: Urine Microscopic Only; Complete Time: 01:52 cp 08/22 01:53 Interpretation: Normal except: BETSEY Cx 1+. cp 08/22 01:22 Order name: Urine --Ancillary (enter results) mw2 08/22 01:22 Order name: Urine Dipstick-Ancillary; Complete Time: 01:52 EDMS 08/22 01:53 Interpretation: Normal except: UPH 7.5. cp 08/21 23:53 Order name: IV Saline Lock; Complete Time: 00:26 cp 08/22 00:49 Order name: CT Lumbar Spine Wo Con cp 08/22 00:49 Order name: CT Thoracic Spine Wo Cont cp 08/21 23:53 Order name: Labs collected and sent; Complete Time: 00:26 cp 08/21 23:53 Order name: Urine Dipstick-Ancillary (obtain specimen); Complete Time: 01:21 cp 08/21 23:53 Order name: Urine Test (obtain specimen); Complete Time: 01:21 cp Administered Medications: 00:10 Drug: NS 0.9% 1000 ml Route: IV; Rate: 1 bolus; Site: right upper arm; as6 03:23 Follow up: Response: No adverse reaction; IV Status: Completed infusion; IV Intake: as6 1000ml 00:10 Drug: morphine 4 mg Route: IVP; Infused Over: 4 mins; Site: right upper arm; as6 03:23 Follow up: Response: No adverse reaction as6 00:10 Drug: Zofran (Ondansetron) 2 mg Route: IVP; Site: right upper arm; as6 03:23 Follow up: Response: No adverse reaction as6 01:14 Drug: morphine 4 mg Route: IVP; Infused Over: 4 mins; Site: right upper arm; as6 03:23 Follow up: Response: No adverse reaction as6 02:32 Drug: Dilaudid (HYDROmorphone) 1 mg Route: IVP; Site: right upper arm; as6 03:23 Follow up: Response: No adverse reaction as6 Disposition Summary: 08/22/22 02:58 Discharge Ordered Location: Home cp Problem: an ongoing problem cp Symptoms: have improved cp Condition: Stable cp Diagnosis - Low back pain cp Followup: cp - With: Private Physician - When: 2 - 3 days - Reason: Wound Recheck Discharge Instructions: - Discharge Summary Sheet cp - Chronic Back Pain cp Forms: - Medication Reconciliation Form cp - Thank You Letter cp - Antibiotic Education cp - Prescription Opioid Use cp Prescriptions: - Diclofenac Sodium 75 mg Oral tablet,delayed release (DR/EC) - take 1 tablet by ORAL route 2 times per day; 20 tablet; Refills: 0, Product cp Selection Permitted - methocarbamol 500 mg Oral Tablet - take 1 tablet by ORAL route 3 times per day; 30 tablet; Refills: 0, Product cp Selection Permitted Signatures: Dispatcher [employer] EDAL Kendrick Mcconnell PA PA cp Slawson, Ashby, RN RN as6 Corrections: (The following items were deleted from the chart) 08/23 02:08/22 00:00 The patient presents with pain pain, cp cp 08/23 02:08/22 00:05 Abdomen/GI: Negative for abdominal pain, nausea, vomiting, and diarrhea, cp cp
--- NOTE | 2022-08-22 02:59 | ER ---
Nurse's Notes [facility] Name: Edith Holcomb Age: 27 yrs Sex: Female : 1995 Arrival Date: 08/21/2022 Time: 23:36 Bed 20 Private MD: Diagnosis: Low back pain Presentation: 08/21 23:41 Chief complaint: EMS states: called out for back pain. pt had recent spinal surgery. as6 Coronavirus screen: At this time, the client does not indicate any symptoms associated with coronavirus-19. Ebola Screen: No symptoms or risks identified at this time. Initial Sepsis Screen: Does the patient meet any 2 criteria? No. Patient's initial sepsis screen is negative. Does the patient have a suspected source of infection? No. Patient's initial sepsis screen is negative. Risk Assessment: Do you want to hurt yourself or someone else? Patient reports no desire to harm self or others. Onset of symptoms was August 21, 2022. 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 - Social history:: Smoking status: Patient denies any tobacco usage or history of. Screenin/03 03:17 [facility] ED Fall Risk Assessment (Adult) Score/Fall Risk Level 0 - 2 = Low Risk. Abuse as6 screen: Denies threats or abuse. Denies injuries from another. Nutritional screening: No deficits noted. Tuberculosis screening: No symptoms or risk factors identified. Assessment: 08/21 23:45 General: Appears uncomfortable, Behavior is calm, cooperative. Pain: Complains of pain as6 in low back area Pain radiates to right lower quadrant and left lower quadrant. Neuro: Level of Consciousness is awake, alert, obeys commands, Oriented to person, place, time, situation. Cardiovascular: Capillary refill < 3 seconds Patient's skin is warm and dry. Respiratory: Respiratory effort is even, unlabored, Respiratory pattern is regular, symmetrical. Musculoskeletal: Reports pain in low back area. 08/22 03:23 Reassessment: at discharge pt states pain has improved. as6 Vital Signs: 08/21 23:41 BP 156 / 95; Pulse 88; Resp 20 S; Temp 98.4(O); Pulse Ox 100% on R/A; Weight 91.17 kg as6 (R); Height 5 ft. 4 in. (162.56 cm) (R); Pain 7/10; 08/22 01:00 BP 143 / 76; Pulse 68; Resp 18 S; Pulse Ox 99% on R/A; as6 02:00 BP 148 / 88; Pulse 71; Resp 17 S; Pulse Ox 100% on R/A; as6 03:00 BP 127 / 67; Pulse 68; Resp 18 S; Pulse Ox 97% on R/A; as6 08/21 23:41 Body Mass Index 34.50 (91.17 kg, 162.56 cm) as6 ED Course: 08/21 23:36 Patient arrived in ED. vc1 23:39 Alon Castillo RN is Primary Nurse. as6 23:40 Kendrick Mcconnell PA is PHCP. cp 23:40 Kendrick Purvis MD is Attending Physician. cp 23:55 Triage completed. as6 23:55 Arm band placed on. as6 08/22 00:00 Accessed PICC line. Blood collected. Good blood return. Flushes easily. as6 02:10 CT Lumbar Spine Wo Con In Process Unspecified. EDMS 02:11 CT Thoracic Spine Wo Cont In Process Unspecified. EDMS 03:18 Bed in low position. Call light in reach. Side rails up X2. as6 03:22 No provider procedures requiring assistance completed. Patient did not have IV access as6 during this emergency room visit. PICC line remains in place. Administered Medications: 00:10 Drug: NS 0.9% 1000 ml Route: IV; Rate: 1 bolus; Site: right upper arm; as6 03:23 Follow up: Response: No adverse reaction; IV Status: Completed infusion; IV Intake: as6 1000ml 00:10 Drug: morphine 4 mg Route: IVP; Infused Over: 4 mins; Site: right upper arm; as6 03:23 Follow up: Response: No adverse reaction as6 00:10 Drug: Zofran (Ondansetron) 2 mg Route: IVP; Site: right upper arm; as6 03:23 Follow up: Response: No adverse reaction as6 01:14 Drug: morphine 4 mg Route: IVP; Infused Over: 4 mins; Site: right upper arm; as6 03:23 Follow up: Response: No adverse reaction as6 02:32 Drug: Dilaudid (HYDROmorphone) 1 mg Route: IVP; Site: right upper arm; as6 03:23 Follow up: Response: No adverse reaction as6 Medication: 03:18 VIS not applicable for this client. as6 Intake: 03:23 IV: 1000ml; Total: 1000ml. as6 Outcome: 02:58 Discharge ordered by MD. cp 03:20 Discharged to home via wheelchair, with significant other. as6 03:20 Condition: stable 03:20 Discharge instructions given to patient, Instructed on discharge instructions, follow up and referral plans. medication usage, Demonstrated understanding of instructions, follow-up care, medications, Prescriptions given X 2. 03:24 Patient left the ED. as6 Signatures: Dispatcher [employer] EDMS Kendrick Mcconnell PA PA cp Slawson, Ashby, RN RN as6 Nidia Ortega RN RN vc1
[2022-08-22 03:46] VITALS: TEMP 98.4
[2022-08-22 03:56] VITALS: BP 127/67; O2SAT 97
--- NOTE | 2022-08-22 13:45 | RAD REPORT ---
EXAM DESCRIPTION: CT - Thoracic Spine W/o Cont - 08/22/2022 6:40 am CLINICAL HISTORY: 27 years Female pain. TECHNIQUE: Multiple high-resolution thin axial CT images were performed through the thoracic spine f ollowed by sagittal and coronal reconstructed images. The CT study is performed according to ALARA (a s low as reasonably achievable) or ALARA/IMAGE GENTLY, with automatic adjustment of mA and/or kV acco rding to patient size. Performed on: 08/22/2022 at 1: 32 AM COMPARISON: No prior studies were available for comparison. FINDINGS: The thoracic vertebrae are normal in height. There is normal alignment of the vertebrae. The disc spaces are well preserved in height. Bone mineralization is normal. There is minimal hypertrophic spurring of the vertebral endplates at multiple levels. The neural foramina appear paten t bilaterally. There is normal alignment of the facet joints on the parasagittal images. There are no significant de generative changes of the lumbar spine. There is no evidence of acute fracture or subluxation. There is no significant canal stenosis. Th ere is no significant neural foraminal stenosis. The paravertebral and paraspinal soft tissues ar e unremarkable. IMPRESSION: 1. No evidence of acute osseous injury involving the thoracic spine. 2. Minimal hypertrophic spurring of the vertebral endplates at multiple levels. 3. Otherwise, unremarkable CT scan of the thoracic spine. Electronically signed by: Margi Locke DO 08/22/2022 2:25 AM [facility] Due to temporary technical issues with the PACS/Fluency reporting system, reports are being signed by the in house radiologists without review as a courtesy to insure prompt reporting. The interpreting radiologist is fully responsible for the content of the report.
--- NOTE | 2022-08-22 15:27 | RAD REPORT ---
EXAM DESCRIPTION: CT - Spine Lumbar Wo Con - 08/22/2022 6:42 am CLINICAL HISTORY: Pain COMPARISON: None. TECHNIQUE: Contiguous axial images of lumbar spine were obtained utilizing 2 mm slice thickness at 2 mm interval reconstruction. In addition multiplanar reformats in the sagittal and coronal plane were generated and reviewed This exam was performed according to our departmental dose-optimization protocol, which includes auto mated exposure control, adjustment of the mA and/or kV according to patient size and/or use of iterat ambrosio reconstruction technique. FINDINGS: There is anatomic alignment of the lumbar spine. There is status post posterior transpedic ular screw fixation device left side with a decompression laminectomy at L4-S1. Otherwise the vertebr al body height is preserved without evidence of acute fracture or subluxation. No retroperitoneal o r paraspinal abnormality is seen. L1-2: Unremarkable L2-3: Unremarkable L3-4: Unremarkable L4-5: Minimal degenerative disc disease L5-S1: Minimal degenerative disc disease IMPRESSION: No acute fracture or subluxation of the lumbar spine. Status post posterior transpedicular screw fixation device left side with a decompression laminectomy at L4-S1. Minimal degenerative disc disease at L4-5 and L5-S1. Electronically signed by: Clement Campuzano MD 08/22/2022 2:18 AM TELEMETRY REGISTERED NURSE Due to temporary technical issues with the PACS/Fluency reporting system, reports are being signed by the in house radiologists without review as a courtesy to insure prompt reporting. The interpreting radiologist is fully responsible for the content of the report.
== END 2022-08-22 03:24 | disposition home or self-care (01) ==
LOC: ER 23:24
DX: M54.50 Low back pain, unspecified (principal); Z88.5 Allergy status to narcotic agent
CPT/HCPCS: 85025; 36415; 81025; 83690; 80053; 72131; 72128; J1170; J7030; J2405; 81003; 81015; 96361; 96374; 96375; 99284

== ENCOUNTER 2023-06-07 17:48 | Emergency (ER) | payer OTHER ==
--- OUTSIDE RECORDS SUMMARY | 2023-06-07 17:54 | XMS REPORT | Continuity of Care Document ---
:1995 Author Organization [facility] t Address [address] [facility] [address] [place] [address] Care Team Providers Name Role Phone Emanuel [...] Type Date Date Clinician tramadol DA Active ID VOMITING 2021-08 [facility] - Clear 00:00: [address] tramadol DA Active ID VOMITING [facility] 7-02 Clear 00:00: Castillo 00 [facility] Tramadol Propensi Active Nausea Severe Univer s ty to and/or 09-28 nausea ity of adverse Vomiting 00:00: and [place] reaction 00 vomiting Medica l s Branch TRAMADOL DRUG Active N/V Univers INGREDI 09-28 ity of 00:00: [place] 00 Medical [place] Social History Social Habit Start Date Stop Date Quantity Comments Source Exposure to 2022-04-11 2022-04-21 Not sure [facility]-CoV-2 00:00:00 07:58:00 [facility] (event) Branch Alcohol intake 2022-04-21 2022-04-21 Current University 00:00:00 00:00:00 non-drinker of [facility] alcohol (finding) Branch Tobacco use and 2017-09-28 2017-09-28 Smokeless tobacco Un iversity of exposure 00:00:00 00:00:00 non-user [facility] Sex Assigned At [birth year] [facility] y of 00:00:00 00:00:00 [facility] Smoking Status Start Date Stop Date Source Never smoked tobacco [facility] Medications Ordered Filled Start Stop Current Ordering [...] h tablet at 0930, Routine naproxen Yes [id number] 500mg Take 1 Un ganga (NAPROSYN) 04-21 tablet by ity of 500 mg 00:00: mouth in [place] tablet 00 the Medical morning Branch and 1 tablet in the evening. Take with meals. predniSONE Yes [id number] 60mg Take 3 U nivers 20 mg [...] 13:01:00 148 mm[Hg] Univer sity of pressure [facility] Diastolic blood 2022-04-21 13:01:00 105 mm[Hg[facility] Heart rate 2022-04-21 13:01:00 88 /min [facility] Body temperature 2022-04-21 13:01:00 37.17 Miguel Angel [facility] Respiratory rate 2022-04-21 13:01:00 16 /min [facility] Body height 2022-04-21 13:01:00 162.6 cm [facility] Body weight 2022-04-21 13:01:00 91.173 kg [facility] BMI 2022-04-21 13:01:00 34.50 kg/m2 [facility] Oxygen saturation in 2022-04-21 13:01:00 100 /min University Arterial blood by [facility] Pulse oximetry Branch Procedures Procedure Date / Time Performed Performing Clinician Caio mckeon [id number] 2022-08-02 00:00:00 MIRWA [facility] [id number] 2022-07-20 00:00:00 RATAL01 [facility] [id number] 2022-07-20 00:00:00 RATAL01 [facility] [id number] 2022-07-20 00:00:00 RATAL01 [facility] [id number] 2022-07-20 00:00:00 RATAL01 [facility] [id number] 2022-07-10 00:00:00 RATAL01 [facility] [id number] 2022-07-10 00:00:00 RATAL01 [facility] [id number] 2022-07-10 00:00:00 RATAL01 [facility] [id number] 2022-07-10 00:00:00 RATAL01 [facility] [id number] 2022-07-10 00:00:00 RATAL01 [facility] [id number] 2022-07-10 00:00:00 RATAL01 [facility] [id number] 2022-07-10 00:00:00 RATAL01 [facility] [id number] 2022-07-10 00:00:00 RATAL01 [facility] [id number] 2022-07-10 00:00:00 RATAL01 [facility] [id number] 2022-07-10 00:00:00 RATAL01 [facility] [id number] 2022-07-10 00:00:00 RATAL01 [facility] POCT TEST 2022-04-21 13:34:00 Sammy Rolon [facility] CONSENT/REFUSAL FOR 2022-04-21 12:48:45 Doctor Unassigned, No Un [facility] DIAGNOSIS AND Name [facility] TREATMENT Encounters Start End Encounter Admission Attending Care Care Encounter Source Date/Time Date/Time Type Type Clinicians Facility Department ID 2022-07-19 2022-08-03 Inpatient ALEX MejiaCL INTE [id number] [facility] 21:27:00 14:46:00 Freddy 67 [facility] 2022-07-10 2022-07-12 Inpatient ALEX YarbroughCL MAS [id number] [facility] 05:29:00 15:27:00 Freddy 65 [facility] 2022-05-09 2022-05-09 Outpatient ALEX LopezCL RMRI [id number] [facility] 11:34:00 11:34:00 Sabrina 77 [facility] 2022-04-21 2022-04-21 Emergency [facility] [id number] Univers 08:02:00 08:45:00 Sammy Dyer BRISTOL [id number] [facility] [id number] [facility] [id number] [place] [id number] Branch 2022-04-21 2022-04-21 Emergency X GISELA ROLON ERT [id number] Univers 08:02:00 08:45:00 SAMMY flores [facility] Results Test Description Test Time Test Comments [...] the recommended formula for GFRby the National [facility] for Adults.The GFR will not calculate if [...] IUnit/L 20-125 N (test code = ALKP) [id number] 06:10:00 Test Item Value Reference Range Interpretation Comments PHOSPHOROUS (test code = PHOS) 3.0 MG/DL 2.5-4.9 N [id number] 06:10:00 Test Item Value Reference Range Interpretation Comments MAGNESIUM (test code = MAG) 1.90 mg/dL 1.80-2.40 N CALCIUM [id number] 06:10:00 Test Item Value Reference Range Interpretation Comments CALCIUM IONIZED (test code = ANNA) 1.19 MMOL/L 1.09-1.30 N CBC W/AUTO [id number] 05:56:00 Test Item Value Reference Range Interpretation [...] (test code NO = MDIFF) COMPREHENSIVE METABOLIC [id number] 05:13:00 Test Item Value Reference Range Interpretation [...] 20-125 N TOTAL (test code = ALKP) [id number] 05:13:00 Test Item Value Reference Range Interpretation Comments PHOSPHOROUS (test code = PHOS) 3.3 MG/DL 2.5-4.9 N [id number] 05:13:00 Test Item Value Reference Range Interpretation Comments MAGNESIUM (test code = MAG) 2.04 mg/dL 1.80-2.40 N CALCIUM [id number] 05:13:00 Test Item Value Reference Range Interpretation Comments CALCIUM IONIZED (test code = NANA) 1.13 MMOL/L 1.09-1.30 N CBC W/AUTO [id number] 04:41:00 Test Item Value Reference Range Interpretation [...] (test code NO = MDIFF) COMPREHENSIVE METABOLIC [id number] 05:37:00 Test Item Value Reference Range Interpretation [...] the recommended for chavez for GFRby the [facility] Found[facility] on for Adults.The GFR [...] 20-125 N TOTAL (test code = ALKP) [id number] 05:37:00 Test Item Value Reference Range Interpretation Comments PHOSPHOROUS (test code = PHOS) 3.6 MG/DL 2.5-4.9 N [id number] 05:37:00 Test Item Value Reference Range Interpretation Comments MAGNESIUM (test code = MAG) 2.00 mg/dL 1.80-2.40 N CALCIUM [id number] 05:37:00 Test Item Value Reference Range Interpretation Comments CALCIUM IONIZED (test code = ANNA) 1.18 MMOL/L 1.09-1.30 N CBC W/AUTO [id number] 04:56:00 Test Item Value Reference Range Interpretation [...] = MDIFF) AB HERPES SIMPLEX 1 2 [id number] 01:07:00 Test Item Value Reference Range Interpretation Comments CSF HSV1 PCR (test Negative Negative code = [id number]) CSF HSV2 PCR (test Negative Negative Performed At: [facility] code = [id number]) [facility] P [id number], [place] [address]Mljsat Earle S MD Ph:[phone] - DUP VEIN [id number] 00:00:00 [facility] 1995 Sex: F Name: RAYMOND HUBBARD [facility] : 1995 Age/S: 27 / F [address] [place] [address] Unit #: [id number] Loc: [place] [address] Phys: Lashonda Ruiz MD Acct: [id number] Dis Date: Status: ADM IN PHONE #: [phone] Exam Date: 08/01/2022 0646 FAX #: [phone] Reason: NEW ONSET RASH EXAMS: CPT CODE: [id number] DUP VEIN SALOMÓN [id number] PROCEDURE INFORMATION: Exam: US Duplex Upper Extremity [...] Doppler waveforms. Normal compressibility and/or augmentation response. Visualizedinternal jugular and subclavian veins are patent. Right superficial veins: There is superficial thrombosis of the right cephalic vein. Left deep veins: Unremarkable. Axillary and brachial veins are patent throughout without thrombus. Normal Doppler waveforms. Normal compressibility and/or augmentationresponse. Visualized internal jugular and subclavian veins are patent. Left superficial veins: Thereis superficial thrombosis of the left cephalic vein. Soft tissues: Unremarkable. IMPRESSION: Superficial thrombosis of the bilateral cephalic vein. at 0654 Reported and signed by: Emmanuel Guzmán M.D CC: George Flores; Freddy Shah DO; Sabrina Tomlinson DO; Lashonda Ruiz MD Technologist: Delicia Rocha RDMS(AB)(OB) Trnscb Date/Time: 08/01/2022 (653) [email or web address] Orig Print D/T: S: 08/01/2022 (653) Probe: PAGE 1 Signed ReportAB HERPES SIMPLEX 1 2 CSF 2022-07-31 13:58:00 Test Item Value Reference Range Interpretation Comments CSF HSV1 PCR TEST NOT See_Comment Test not perfor med. (test code = PERFORMED Deterioration o ccurred [id number]) during specimenhandlin g.Notified Yasmine Carrillo at a ccount 07/31/2022. [Au tomated message] The sy stem which generated this result transmitted ref erence range: (). The reference range was not u sed to interpret this result as normal/abnormal . CSF HSV2 PCR TEST NOT See_Comment Test not (test code = PERFORMED performedPerfor med At: [id number]) [facility] P [id number] [address] [place], [place] [id number] Earle S MD Ph:[phone] [Automated mess age] The system which ge nerated this result tra nsmitted reference range : (). The reference range was not used to interpr et this result as normal/abnormal . COMPREHENSIVE METABOLIC [id number] 05:23:00 Test Item Value Reference Range Interpretation [...] 20-125 N TOTAL (test code = ALKP) [id number] 05:23:00 Test Item Value Reference Range Interpretation Comments PHOSPHOROUS (test code = PHOS) 4.3 MG/DL 2.5-4.9 N [id number] 05:23:00 Test Item Value Reference Range Interpretation Comments MAGNESIUM (test code = MAG) 2.04 mg/dL 1.80-2.40 N CALCIUM [id number] 05:23:00 Test Item Value Reference Range Interpretation Comments CALCIUM IONIZED (test code = ANNA) 1.16 MMOL/L 1.09-1.30 N CBC W/AUTO [id number] 05:08:00 Test Item Value Reference Range Interpretation [...] NO = MDIFF) - MRI L-SPINE W/O [id number] 00:00:00 [facility] : 1995 Sex: F FAX: George Flores MD [phone] [place]em[place]: St: ADM FAX: Kimberly Pond NP FAX: Freddy Patino DO [phone] FAX: Sabrina Sow DO [phone] Name: HYADEE,RAYMOND [facility] : 1995 Age/S: 27/F [address] [place] [address] Blvd Unit #: [id number] Loc: [address] [place] [address] Phys: Kimberly Pond NP Acct: [id number] Dis Date: Status: ADM IN PHONE #: [phone] Exam Date: 07/31/2022 1619 FAX #: [phone] Reason: worsening hip pain s/p lumbar surgery EXAMS: CPT CODE: [id number] MRI L-SPINE W/O CONT [id number] INFORMATION: Exam: MR Lumbar Spine Without Contrast Exam date and time: 07/31/2022 3:40 PMAge: 27 years old Clinical indication: Other: Worsening hip pain S/P lumbar surgery TECHNIQUE: Imaging protocol: Magnetic resonance imaging of the lumbar spine without contrast. COMPARISON: MRI L-SPINEW WO CON 05/09/2022 11:58 AM FINDINGS: For counting purposes 5 non rib-bearing lumbar type vertebra are assumed. There has been interval surgery with [...] approximately 12 cm craniocaudad approximately 5.3 cm tra nsverse and approximately 1.5 cm AP. These 2 fluid collections communicate with each other at midline extending from L2-L3 to L3-L4. No evidence for an associated infectious and/or inflammatory processis identified with these fluid collections, early infection can not be excluded. No evidence for abnormality is identified in the distal thoracic spinal cord. L1-L2 and L2-L3: There is no evidence for significant narrowing of the neural foramen or spinal [...] Signed Report (CONTINUED) FAX: George Flores MD [phone] [place]em[place]: St: ADM FAX: Kimberly Pond NP FAX: Freddy Patino DO [phone] FAX: aSbrina Sow DO [phone] Name: RAYMOND HUBBARD [facility] : 1995 Age/S: 27/F [address] [place] [address] Unit #: [id number] Loc:G.M301 [place] [address] Phys: Kimberly Pond NP Acct: [id number] Dis Date: Status: ADM IN PHONE #: [phone] Exam Date: 07/31/2022 1619 FAX #: [phone] Reason: worsening hip pain s/p lumbar surgery EXAMS: CPT CODE: [id number] MRI L-SPINE W/O CONT 47046 (Continued) IMPRESSION: 1. Interval resection of a left L4-L5 disc protrusion without evidence to suggest recurrent and/or residual disc material. 2. At L3-L4 there is moderate severe spinal canal stenosis with crowding of the nerve roots. 3. Fluid collections, likely postoperative seromas or identified along the midline surgical tract between the posterior paraspinous muscles and in the adjacent subcutaneous soft tissues. No evidence isidentified associated with these fluid collections to suggest an infectious inflammatory process. Ear ly infection can not be excluded. at 1747 Reported and signed by: Govind Cha M.D. CC: George Flores; Kimberly Pond NP; Freddy Shah DO; Sabrina Tomlinson DO Technologist: RT Carol(Lydia)(CT) Trnscrd Date/Time/By: 07/31/2022 (1747) : By: [email or web address] Orig Print D/T: S: 07/31/2022 (1126) PAGE 2 Signed Report COMPREHENSIVE METABOLIC [id number] 05:43:00 Test Item Value Reference Range Interpretation [...] 20-125 N TOTAL (test code = ALKP) [id number] 05:43:00 Test Item Value Reference Range Interpretation Comments PHOSPHOROUS (test code = PHOS) 4.6 MG/DL 2.5-4.9 N [id number] 05:43:00 Test Item Value Reference Range Interpretation Comments MAGNESIUM (test code = MAG) 2.09 mg/dL 1.80-2.40 N CALCIUM [id number] 05:43:00 Test Item Value Reference Range Interpretation Comments CALCIUM IONIZED (test code = ANNA) 1.21 MMOL/L 1.09-1.30 N CBC W/AUTO [id number] 05:17:00 Test Item Value Reference Range Interpretation [...] 0.0-0.1 N code = NRBC#) COMPREHENSIVE METABOLIC [id number] 05:21:00 Test Item Value Reference Range Interpretation [...] 20-125 N TOTAL (test code = ALKP) [id number] 05:21:00 Test Item Value Reference Range Interpretation Comments PHOSPHOROUS (test code = PHOS) 4.1 MG/DL 2.5-4.9 N [id number] 05:21:00 Test Item Value Reference Range Interpretation Comments MAGNESIUM (test code = MAG) 1.98 mg/dL 1.80-2.40 N CALCIUM [id number] 05:21:00 Test Item Value Reference Range Interpretation Comments CALCIUM IONIZED (test code = ANNA) 1.03 MMOL/L 1.09-1.30 L CBC W/AUTO [id number] 04:55:00 Test Item Value Reference Range Interpretation [...] (test code NO = MDIFF) CBC W/AUTO [id number] 09:46:00 Test Item Value Reference Range Interpretation [...] 0.0-0.1 N code = NRBC#) SED RATE [id number] 09:46:00 Test Item Value Reference Range Interpretation Comments SED RATE WESTERGREN (test code = 86 mm/hr 0-20 H SEDW) COMPREHENSIVE METABOLIC [id number] 07:35:00 Test Item Value Reference Range Interpretation [...] chavez for GFRby the [facility] for Ad[facility].The GFR will [...] 20-125 N TOTAL (test code = ALKP) [id number] 07:35:00 Test Item Value Reference Range Interpretation Comments PHOSPHOROUS (test code = PHOS) 3.9 MG/DL 2.5-4.9 N [id number] 07:35:00 Test Item Value Reference Range Interpretation Comments MAGNESIUM (test code = MAG) 2.19 mg/dL 1.80-2.40 N CALCIUM [id number] 07:35:00 Test Item Value Reference Range Interpretation Comments CALCIUM IONIZED (test code = ANNA) 1.17 MMOL/L 1.09-1.30 N C REACTIVE [id number] 07:28:00 Test Item Value Reference Range Interpretation Comments C REACTIVE PROTEIN (test code = 52.0 mg/L <10.0 H CRP) CSF CELL [id number] 14:52:00 Test Item Value Reference Range Interpretation [...] 0 % (test code = MACCSF) CSF [id number] 11:29:00 Test Item Value Reference Range Interpretation Comments CSF COLOR (test code = COLORLESS COLORLESS COLCSF) CSF TUBE # (test code = STERILE CONTAINER TUBECSF) CSF GLUCOSE (test code = 51 MG/DL 40-80 N GLUCSF) CSF TOTAL PROTEIN (test 39.7 mg/dL 15-45 N code = PROTCSF) CBC W/AUTO [id number] 05:42:00 Test Item Value Reference Range Interpretation [...] 0.0-0.1 N code = NRBC#) COMPREHENSIVE METABOLIC [id number] 05:24:00 Test Item Value Reference Range Interpretation [...] the recommended for chavez for GFRby the [facility]ney Foundati on for Adults.The GFR will [...] 20-125 N TOTAL (test code = ALKP) [id number] 05:24:00 Test Item Value Reference Range Interpretation Comments PHOSPHOROUS (test code = PHOS) 3.4 MG/DL 2.5-4.9 N [id number] 05:24:00 Test Item Value Reference Range Interpretation Comments MAGNESIUM (test code = MAG) 2.17 mg/dL 1.80-2.40 N CALCIUM [id number] 05:24:00 Test Item Value Reference Range Interpretation Comments CALCIUM IONIZED (test code = ANNA) 1.20 MMOL/L 1.09-1.30 N AB HERPES SIMPLEX 1 2 [id number] 05:11:00 Test Item Value Reference Range Interpretation Comments CSF HSV1 PCR (test Negative Negative code = AUC0NVWFGR) CSF HSV2 PCR (test Negative Negative Performed At: [facility] code = AYK0IBNODE) [facility] P xtjqif2174 [address] [id number] Ian Dyer MD Ph:[phone] CBC W/AUTO [id number] 05:58:00 Test Item Value Reference Range Interpretation [...] LY#) MANUAL DIFF REQUIRED NO SLIDE R LUKASZWED, (test code = MDIFF) CONSISTE NT WITH [...] 0.0-0.1 N code = NRBC#) BASIC METABOLIC [id number] 05:55:00 Test Item Value Reference Range Interpretation [...] the recommended for chavez for GFRby the [facility] Kidney Foundati on for Adults.The GFR will not calculate if th e sex is unknown or if thepatient's ag e is <18 years. CREATININE (test 0.7 mg/dL 0.6-1.3 N code = CREAT) CALCIUM (test code = 8.8 mg/dL 8.0-10.5 N CA) HEPATIC FUNCTION [id number] 12:40:00 Test Item Value Reference Range Interpretation [...] can add tp specimen in labBASIC METABOLIC [id number] 04:43:00 Test Item Value Reference Range Interpretation [...] the recommended for chavez for GFRby the [facility]ney Foundati on for Adults.The GFR will not calculate if th e sex is unknown or if thepatient's ag e is <18 years. CREATININE (test 0.8 mg/dL 0.6-1.3 N code = CREAT) CALCIUM (test code = 8.6 mg/dL 8.0-10.5 N CA) CBC W/AUTO [id number] 04:27:00 Test Item Value Reference Range Interpretation [...] NO = MDIFF) - CT HEAD/BRAIN W/O [id number] 00:00:00 [facility] : 1995 Sex: F Name: RAYMOND HUBBARD [facility] Paul Castillo : 1995 Age/S: 27 / F [address] [place] [address] Unit #: [id number] Loc: [place] [address] Phys: Kimberly Pond NP Acct: [id number] Dis Date: Status: ADM IN PHONE #: [phone] Exam Date: 07/25/2022 1419 FAX #: [phone] Reason: severe headache, lumbar drain EXAMS: CPT CODE: [id number] CT HEAD/BRAIN W/O CONT 69903 PROCEDURE INFORMATION: Exam: CT Head Without Contrast Exam date and time: 07/25/2022 2:23 PM Age: 27 years old Clinical indication: Pain; Headache; Additional info: Severe headache, lumbar drain TECHNIQUE: Imaging protocol: Computed tomography of the head without contrast. Radiation optimization: All CT scans at this facility use at least one of these dose optimization techniques: automated exposure control; mA and/or kV adjustment per patient size (includes targeted exams where dose is matched to clinical indication); or iterative reconstruction. COMPARISON: CT HEAD/BRAIN W/O CONT 07/20/2022 2:42 AM FINDINGS: Brain: Maintained hill-white differentiation. No hemorrhage, midline shift nor abnormal extra-axial fluid collection. Cerebral ventricles: Midline in position. Unremarkable caliber. Paranasal sinuses: Visualized sinuses are unremarkable. No fluid levels. Mastoid air cells: Visualized mastoid air cells are well aerated. Orbital cavities: Unremarkable appearance of orbits. Bones/joints: No acute fracture. Soft tissues: Unremarkable. IMPRESSION: No acute intracranial process nor bony injury. at 1537 Reported and signed by: Neftali Crawford M.D. CC: George Flores; Kimberly Pond LAUNCH LEADER; Freddy Shah DO; Sabrina Tomlinson DO Technologist:RT Isamar(R)(CT) CTDI: DLP: Trnscb Date/Time: 07/25/2022 (1537) [email or web address] Orig Print D/T: S: 07/25/2022 (2193) [id number] 17:00:00 Test Item Value Reference Range Interpretation [...] = 6 % 16-56 L MONOCSF) CSF [id number] 15:36:00 Test Item Value Reference Range Interpretation Comments CSF COLOR (test code = XANTHROCHROMIC COLORLESS COLCSF) CSF TUBE # (test code = STERILE CONTAINER TUBECSF) CSF GLUCOSE (test code = 35 MG/DL 40-80 L GLUCSF) CSF TOTAL PROTEIN (test 63.4 mg/dL 15-45 H code = PROTCSF) BASIC METABOLIC [id number] 04:26:00 Test Item Value Reference Range Interpretation [...] the recommended for chavez for GFRby the [facility]ney Foundati on for Adults.The GFR will not calculate if th e sex is unknown or if thepatient's ag e is <18 years. CREATININE (test 0.8 mg/dL 0.6-1.3 N code = CREAT) CALCIUM (test code = 8.4 mg/dL 8.0-10.5 N CA) CBC W/AUTO [id number] 04:10:00 Test Item Value Reference Range Interpretation [...] (test code NO = MDIFF) BASIC METABOLIC [id number] 04:46:00 Test Item Value Reference Range Interpretation [...] 8.0 mg/dL 8.0-10.5 N CA) CBC W/AUTO [id number] 04:23:00 Test Item Value Reference Range Interpretation [...] (test NO code = MDIFF) CBC W/AUTO [id number] 06:07:00 Test Item Value Reference Range Interpretation [...] (test NO code = MDIFF) SED RATE [id number] 06:07:00 Test Item Value Reference Range Interpretation Comments SED RATE WESTERGREN (test code = 114 mm/hr 0-20 H SEDW) C REACTIVE [id number] 05:31:00 Test Item Value Reference Range Interpretation Comments C REACTIVE PROTEIN (test code = 338.0 mg/L <10.0 H CRP) BASIC METABOLIC [id number] 05:21:00 Test Item Value Reference Range Interpretation [...] 8.4 mg/dL 8.0-10.5 N CA) BASIC METABOLIC [id number] 08:08:00 Test Item Value Reference Range Interpretation [...] 8.5 mg/dL 8.0-10.5 N CA) CBC W/AUTO [id number] 06:53:00 Test Item Value Reference Range Interpretation [...] NO code = MDIFF) - DUP VEIN UNI/[id number] 00:00:00 [facility] : 1995 Sex: F Name: RAYMOND HUBBARD [facility] : 1995 Age/S: 27 / F [address] [place] [address] Unit #: [id number] Loc: [place] [address] Phys: Kimberly Pond LAUNCH LEADER Acct: [id number] Dis Date: Status: ADM IN PHONE #: [phone] Exam Date: 07/21/202225 FAX #: [phone] Reason: left leg pain, recent spine surgery EXAMS: CPT CODE: [id number] DUP VEIN UNI/LTD 23831 PROCEDURE INFORMATION: Exam: US Duplex Left Lower Extremity Veins, Limited Exam date and time: 07/21/2022 6:47 AM Age: 27 years old Clinical indication: Pain; Leg, lower; Left; Additional info: Left leg pain, recent spine surgery TECHNIQUE: Imaging protocol: Real-time Duplex ultrasound of the Left Lower Extremity [...] Nassar M.D. CC: George Flores; Kimberly Pond LAUNCH LEADER; Sabrina Tomlinson DO Technologist: Katelin Forbes Trnnyb Date/Time: 07/21/2022 (075) [email or web address] Orig Print D/T: S: 07/21/2022 (075) Probe: [id number] 18:52:00 Test Item Value Reference Range Interpretation [...] 16-56 L code = MONOCSF) UR HCG [id number] 10:54:00 Test Item Value Reference Range Interpretation Comments UR HCG QUAL (test code = HCGQLU) NEGATIVE NEGATIVE UA RFLX MICR CULT IF [id number] 05:31:00 Test Item Value Reference Range Interpretation [...] for culture: RiskForSepsis-no oth srcSpecimen Description: CLEAN [id number] 01:44:00 Test Item Value Reference Range Interpretation Comments D-DIMER (test 1373 ng/mlFEU See_Comment HH Critical resu lt called to code = SYLVIE MICHEL Tby DDIMER) [id number] at 07/20/22Nurse r ead back result and [...] this result as normal/abnormal . B-TYPE NATRIURETIC [id number] 01:32:00 Test Item Value Reference Range Interpretation Comments B-TYPE NATRIURETIC PEPTIDE (test 29.0 PG/ML 0-100 N code = BNP) BASIC METABOLIC [id number] 01:23:00 Test Item Value Reference Range Interpretation [...] = POCGLU) 151 MG/DL 70-110 H HEMOGLOBIN [id number] 01:23:00 Test Item Value Reference Range Interpretation Comments HEMOGLOBIN ABG (test code = 11.4 G/DL 11.0-15.0 N HGB/ABG) [id number] 01:23:00 Test Item Value Reference Range Interpretation Comments HEMATOCRIT (test code = HCT/ABG) 34 % 33.0-45.0 N POC LACTIC [id number] 01:23:00 Test Item Value Reference Range Interpretation Comments POC LACTIC ACID (test code = 1.1 mmol/l 0.9-1.7 N POCLAC) POC VENOUS BLOOD [id number] 01:23:00 Test Item Value Reference Range Interpretation Comments POC VENOUS BLOOD GAS PH (test 7.397 7.33-7.45 N code = POCPHV) POC VENOUS BLOOD GAS PCO2 (test 33.7 mmHg 43-47 L code = ZHYJMF1S) POC VENOUS BLOOD GAS PO2 (test 76.5 mmHG 10-50 H code = MQPVX7K) POC TCO2 VENOUS (test code = 21.8 GRAECO2O) POC HCO3 VENOUS (test code = 20.8 MMOL/L 22-27 L WPXVCV4U) POC BASE EXCESS VENOUS (test -4.1 MMOL/L -4.0-4.0 L code = POCBEV) POC O2 SATURATION VENOUS (test 95.3 % 60-80 H code = OCIZ6NU) VENOUS BLOOD GAS FIO2 (test code 21 % = FIO2V) VENOUS BLOOD GAS SITE (test code Central Line = SITEV) - XR FLUOROSCOPY 0-60 [id number] 00:00:00 [facility] 1995 Sex: F FAX: George Flores MD [phone] [place]em[place]: St: ADM FAX: Freddy Patino DO [phone] FAX: Sabrina Sow DO [phone] Name: RAYMOND HUBBARD [facility] : 1995 Age/S: 27/F [address] [place] [address] Unit #: [id number] Loc: G.[address] [place] [address] Phys: Sabrina Tomlinson DO Acct: [id number] Dis Date: Status: ADM IN PHONE #: [phone] Exam Date: 07/20/2022 1524 FAX #: [phone] Reason: REPAIR OF CEREBRAL SPINAL FLUID LEAK S/P LIBORIO EXAMS: CPT CODE: [id number] XR FLUOROSCOPY 0-60 MIN 42134 PROCEDURE INFORMATION: Exam: FL Fluoroscopy, Up to 1 Hour Physician Time; Radiologist Not Present For Fluoroscopy Exam date and time: 07/20/2022 2:44 PM Age: 27 years old Clinical indication: Pain; Pain: Repairof cerebral spinal fluid leak S/P laminectomy TECHNIQUE: Imaging protocol: Fluoroscopy , up to 1 hour physician or other qualified health respiratory care assistant time. This radiologist did not supervise thisprocedure. [...] documentation. See also separate procedure notes. at 1547 Reported and signed by: Jaren Adkins M.D. CC: George Flores; Freddy Shah DO; Sabrina Tomlinson DO Technologist: RT Jayshree(Lydia) Trnscrd Date/Time/By: 07/20/2022 (1546) : By: [email or web address] [facility] Print D/T: S: 07/20/2022 (6276) PAGE 1 Signed Report- CT HEAD/BRAIN W/O [id number] 00:00[facility]00[facility] : 1995 Sex: F Name: RAYMOND HUBBARD [facility] : 1995 Age/S: 27 / F [address] [place] [address] Unit #: [id number] Loc: [place] [address] Phys: Segun Negron MD Acct: [id number] Dis Date: Status: ADMIN PHONE #: [phone] Exam Date: 07/20/2022251 FAX #: [phone] Reason: headache EXAMS: CPT CODE: [id number] CT HEAD/BRAIN W/O CONT 80721 PROCEDURE INFORMATION: Exam: CT Head Without Contrast Exam date and time: 07/20/2022 2:42 AM Age: 27 years old Clinical indication: Pain; Headache TECHNIQUE:Imaging protocol: Computed tomography of the head without contrast. Radiation optimization: All CT scans at this facility use at least one of these dose optimization techniques: automated exposure contr ol; mA and/or kV adjustment per patient size [...] mastoid air cells are well aerated. Bones/joints: Unremarkable. No acute fracture. Soft tissues: Unremarkable. IMPRESSION: No CT evidence of acute intracranial process. COMMENTS: If there is a persistent concern for acute intracranial process, emergent assessment with MRI or CTA is recommended. at 0803 Reported and signed by: Alejandra Zarco M.D. CC: George Flores; Sbarina Tomlinson DO; Segun Negron MD Technologist:Med Plascencia, RT(R)(CT) CTDI: DLP: Trnscb Date/Time: 07/20/2022 (802) [email or web address] Orig Print D/T: S: 07/20/2022 (802) PAGE 1 Signed Report- CTA CHEST FOR [id number] [facility]:00[facility]00[facility] : 1995 Sex: F Name: RAYMOND HUBBARD [facility] : 1995 Age/S: 27 / F [address] [place] [address] Unit #: [id number] Loc: [place] [address] Phys: Segun Negron MD Acct: [id number] Dis Date: Status: ADM IN PHONE #: [phone] Exam Date: 07/20/2022251 FAX #: [phone] Reason: elevated dd, tachycardia EXAMS: CPT CODE: [id number] [place] [address] PROCEDURE INFORMATION: Exam: CTA Chest WithContrast Exam date and time: 07/20/2022 2:46 AM [...] of these dose optimization techniques: automated exposure control; mA and/or kV adjustment per patient size (includes targeted exams where dose is matched to clinical indication); or iterative reconstruction. Contrast material: ISO 300; Contrast volume: 100 ml; Contrast route: INTRAVENOUS (IV); COMPARISON: CR XR CHEST 1V 07/20/2022 1:11 AM FINDINGS: Pulmonary arteries: Normal. No pulmonary emboli. Aorta: Unremarkable. No aortic aneurysm.No aortic dissection. Lungs: Unremarkable. No consolidation. No masses. Pleural spaces: Unremarkable. No pneumothorax. No pleural effusion. Heart: Unremarkable. No cardiomegaly. No pericardial effusion. Lymph nodes: Unremarkable. No enlarged lymph nodes. Bones/joints: Unremarkable. No acute fracture. Soft tissues: Hepatic steatosis. IMPRESSION: 1. No acute findings. Specifically, no CT evidence forpulmonary embolus. 2. Hepatic steatosis. at 0346 Reported and signed by: Mack Can M.D. CC: George Flores; Sabrina Tomlinson DO; Segun Negron MD Technologist:Med Plascencia, RT(R)(CT) CTDI: DLP: Trnscb Date/Time:07/20/2022 (345) [place] Orig Print D/T: S: 07/20/2022 (345) PAGE 1 Signed Report- XR CHEST 1 [id number] 00:00:00 [facility] : 1995 Sex: F FAX: George Flores MD [phone] Jem[place]: St: [facility] FAX: Sabrina Sow DO [phone] FAX: Segun Negron Name:RAYMOND HUBBARD [facility] : 1995 Age/S: 27/F [address] Unit #: [id number] Loc: [place] [address] Phys: Segun Negron MD Acct: [id number] Dis Date: Status: ADM IN PHONE #: [phone] Exam Date: 07/19/2022 0120 FAX #: [phone] Reason: sepsis EXAMS: CPT CODE: [id number] XR CHEST 1 V 01314 PROCEDURE INFORMATION: Exam: XR Chest Exam date and time: 07/20/2022 1:11 AM Age: 27 years old Clinical indication: Other: Sepsis TECHNIQUE: Imaging protocol: Radiologic exam of the chest. Views: 1 view. COMPARISON: No relevant prior studies available. FINDINGS: Lungs: Mildly prominent interstitial lung markings bilaterally, which may represent interstitial edema, atelectasis or pneumonitis. Pleural spaces: No pleural effusion. No pneumothorax. Heart/Mediastinum: Cardiac and mediastinal contours within normal limits. Bones/joints: No acute osseous abnormality. IMPR ESSION: Mildly prominent interstitial lung markings bilaterally, which may represent interstitial edema, atelectasis or pneumonitis. at 0127 Reported and signed by: Hardik Rain M.D. CC: George Flores; Sabrina Tomlinson DO; Segun Negron MD Technologist: Kait Lo, RT(R); Dusty Ward RT(R) Trnscrd Date/Time/By: 07/20/2022 (0127) : By: [email or web address] Orig Print D/T: S: 07/20/2022 (0128) PAGE 1 Signed ReportHEPATIC FUNCTION [id number] 23:21:00 Test Item Value Reference Range Interpretation [...] code = 0.20 MG/DL BILIND) TROP-I HIGH [id number] 23:21:00 Test Item Value Reference Range Interpretation [...] and URLs mayvar y by method. LACTIC [id number] 23:17:00 Test Item Value Reference Range Interpretation Comments LACTIC ACID (test code = LACT) 1.7 mmol/L 0.4-1.9 N BASIC METABOLIC [id number] 22:16:00 Test Item Value Reference Range Interpretation [...] = 8.7 mg/dL 8.0-10.5 N CA) PROTHROMBIN [id number] 22:15:00 Test Item Value Reference Range Interpretation [...] (to prevent recurrent infar ct). THROMBOPLASTIN TIME [id number] 22:15:00 Test Item Value Reference Range Interpretation Comments THROMBOPLASTIN TIME 26.9 Seconds 25.0-39.5 N Therape utic Range: PARTIAL (test code = 50.4 - 88.3 Seconds PTT) Effective 12/03/2018 CBC W/AUTO [id number] 22:07:00 Test Item Value Reference Range Interpretation [...] (test NO code = MDIFF) CBC W/AUTO [id number] 08:48:00 Test Item Value Reference Range Interpretation [...] (test code NO = MDIFF) BASIC METABOLIC [id number] 07:25:00 Test Item Value Reference Range Interpretation [...] the recommended for chavez for GFRby the [facility] for Adults.The GFR will not calculate if th e sex is unknown or if thepatient's ag e is <18 years. CREATININE (test 0.6 mg/dL 0.6-1.3 N code = CREAT) CALCIUM (test code = 8.2 mg/dL 8.0-10.5 N CA) CBC W/AUTO [id number] 07:50:00 Test Item Value Reference Range Interpretation [...] (test NO code = MDIFF) BASIC METABOLIC [id number] 07:36:00 Test Item Value Reference Range Interpretation [...] 8.0-10.5 N CA) - XR FLUOROSCOPY 0-60 [id number] 00:00:00 [facility] : 1995 Sex: F FAX: Sabrina Sow DO [phone] [place]em[place]: St: ADM Name: HAYDEERAYMOND CASTELAN [facility] : 1995 Age/S: 27/F [address] [place] [address] Unit #: [id number] Loc: [place] [address] Phys: Sabrina Tomlinson DO Acct: [id number] Dis Date: Status: ADM IN PHONE #: [phone] Exam Date: 07/10/2022 1115 FAX #: [phone] Reason: LUMBAR FOUR TO FIVE DISC HERNIATION WITH RADICU EXAMS: CPT CODE: [id number] XR FLUOROSCOPY 0-60 MIN 76737 PROCEDURE INFORMATION: Exam: FL Fluoroscopy, Up to 1 Hour Physician Time; Radiologist Not Present For Fluoroscopy Exam date and time: 07/10/2022 10:19 AM Age: 27 years old Clinical i ndication: Other intervertebral disc displacement, lumbar region; Radiculopathy, lumbar region; Vertebrogenic low back pain; Additional info: 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 This radiologist did not supervise this [...] Intraoperative review of these images was performed bythe operating physician. Please refer to the procedure report for further details. Notes: Fluoroscopy supervised by facility personnel. See also separate procedure report. IMPRESSION: Fluoroscopy dosage documentation. See also separate procedure notes. at 8025 Reported and signed by: Lenny Silver M.D. CC: Sabrina Tomlinson DO Technologist: RT Schroeder (R) Trnscrd Date/Time/By: 07/10/2022 (1228) : By: [email or web address] [facility] Print D/T: S: 07/10/2022 (8037) PAGE 1 Signed Report- XR FLUOROSCOPY 0-60 [id number] 00:00:00 [facility] : 1995 Sex: F FAX: Sabrina Sow DO [phone] [place]em[place]: St: ADM Name: RAYMOND HUBBARD : 1995 Age/S: 27/F [address] [place] [address] Unit #: [id number] Loc: [place] [address] Phys: Sabrina Tomlinson DO Acct: [id number] Dis Date: Status: ADM IN PHONE #: [phone] Exam Date: 07/10/2022 1115 FAX #: [phone] Reason: LUMBAR FOUR TO FIVE DISC HERNIATION WITH RADICU EXAMS: CPT CODE: [id number] XR FLUOROSCOPY 0-60 MIN 21651 PROCEDURE INFORMATION: Exam: FL Fluoroscopy, Up to 1 Hour Physician Time; Radiologist Not Present For Fluoroscopy Exam date and time: 07/10/2022 8:32 AM Age: 27 years old Clinical in dication: Other intervertebral disc displacement, lumbar region; Radiculopathy, lumbar region; Vertebrogenic low back pain; Additional info: 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 This radiologist did not supervise this procedure. Exam supervised by facility personnel. Report for radiation dosage reporting and documentation only. Other technique: Radiologist was not present during this procedure. COMPARISON: No relevant prior studies available. RADIATION DOSE METRICS:Fluoroscopy time (seconds): seconds= 6.0 seconds Number of fluoro spot images: images= 3 Reference air kerma (HARVEY): 4.85 mGy FINDINGS: Procedural imaging: Fluoroscopic assistance was provided. Radiologist was not present during the procedure. Intraoperative review of these images was performed by theoperating physician. Please refer to the procedure report for further details. Notes: Fluoroscopy sup ervised by facility personnel. See also separate procedure report. IMPRESSION: Fluoroscopy dosage documentation. See also separate procedure notes. at 1154 Reported and signed by: Lenny Silver M.D. CC: Sabrina Tomlinson DO Technologist: Morenita Starkey RT(R) Trnscrd Date/Time/By: 07/10/2022 (2131) : By: [email or web address] Orig Print D/T: S: 07/10/2022 (4761) PAGE 1 Signed Report PROTHROMBIN [id number] 11:08:00 Test Item Value Reference Range Interpretation [...] (to prevent recurrent infar ct). THROMBOPLASTIN TIME [id number] 11:08:00 Test Item Value Reference Range Interpretation Comments THROMBOPLASTIN TIME 28.1 Seconds 25.0-39.5 N Therape utic Range: PARTIAL (test code = 50.4 - 88.3 Seconds PTT) Effective 12/03/2018 COVID 19 Asymptomatic IH [id number] 11:04:00 Test Item Value Reference Range Interpretation [...] high or waivedcomplexit y tests. BASIC METABOLIC [id number] 11:03:00 Test Item Value Reference Range Interpretation [...] 9.6 mg/dL 8.0-10.5 N CA) HCG SERUM [id number] 11:01:00 Test Item Value Reference Range Interpretation Comments HCG SERUM QUAL (test code = SERUM NEGATIVE NEGATIVE HCGQL) CBC W/AUTO [id number] 10:58:00 Test Item Value Reference Range Interpretation [...] MANUAL DIFF REQUIRED (test code NO = IFF) - MRI L-SPINE W WO [id number] 00:00:00 [facility] : 1995 Sex: F FAX: Sabrina Sow DO [phone] [place]em[place]: St: REG Name: HAYDEERAYMOND [facility] : 1995 Age/S: 26/F [address] [place] [address] Unit #: [id number] Loc: [place] [address] Phys: Sabrina Tomlinson DO Acct: [id number] Dis Date: Status: REG CLI PHONE #: [phone] Exam Date: 05/09/2022 1245 FAX #: [phone] Reason: M54.50 LOW BACK PAIN EXAMS: CPT CODE: [id number] MRI L-SPINE W WO CON 43816 PROCEDURE INFORMATION: Exam: MR Lumbar Spine Without [...] the S1 nerve root at the L5-S1 disc space as well. There is minimal [...] and left lateral extruded and sequestered disc her niation which is extended inferior to disc level for a total length of 2.2 cm. The AP/transverse diameter is 1.1 x 1.3 cm with severe compromise of the left L5 nerve root throughout its course PAGE 1 Signed Report (CONTINUED) FAX: Sabrina Sow DO [phone] [place]em[place]: St: REG Name: RAYMOND HUBBARD [facility] Paul Castillo : 1995 Age/S: 26/F [address] [place] [address] Unit #: [id number] Loc: [place] [address] Phys: Sabrina Tomlinson DO Acct: [id number] Dis Date: Status: REG CLI PHONE #: [phone] Exam Date: 05/09/2022 1245 FAX #: [phone] Reason: M54.50 LOW BACK PAIN EXAMS: CPT CODE: [id number] MRI L-SPINE W WO CON 25884 (Continued) in the proximal mid and distal lateral recess. There is flattening ofthe ventral lateral aspect of the thecal sac with compromise of the S1 nerve root at the L5-S1 disc space as well. There is minimal proximal left foraminal stenosis. L5-S1: The disc space is desiccatedand narrowed and a component of L4-L5 disc herniation extends caudally to the L5-S1 disc level compromising the left S1 nerve root within the lateral recess the AP/transverse diameter is 7 x 10 mm. at 1252 Reported and signed by:Sherwin Figueroa M.D. CC: Sabrina Tomlinson DO Technologist: RT Kierra(Lydia)(MR) Trnscrd Date/Time/By: 05/09/2022 (5974) : By: [email or web address] Orig Print D/T: S: 05/09/2022 (4234) PAGE 2 Signed ReportPOCT [id number] 13:34:00 Test Item Value Reference Range Interpretation Comments POCT PREG (test code = 1605) negative On board controls acceptable with present C Line (test code = 3574) POCT PREG LOT # (test code = 3575) [id number] POCT PREG TEST DATE (test 07/19/2023 code = 3576) Lab Interpretation (test code = Normal 26999-3) [facility]
[2023-06-07 19:40] LABS: Absolute Lymphocytes (CBC) 0.5 K/uL (0.7-4.9); Hematocrit 33.3 % (36.0-45.0); Lymphocytes % 3.5 % (15.3-44.8); MCV 79.2 fL (80-100); Platelets 284 thou/uL (152-406); RBC Red Blood Cell Count 4.21 M/uL (3.86-4.86)
[2023-06-07 19:52] LABS: CSF Glucose 55 mg/dL (40-70)
[2023-06-07 19:52] LABS: Protime INR 1.12
[2023-06-07 20:01] LABS: Albumin 3.7 g/dL (3.4-5.0); Bilirubin Total 0.6 mg/dL (0.2-1.0); Potassium 3.7 mEq/L (3.5-5.1); Protein, Total 7.7 g/dL (6.4-8.2)
[2023-06-07 20:04] LABS: Appearance CLEAR (CLEAR); Body Fluid Source CSF; Body Fluid WBC 0 /mm^3; Color of fluid Colorless (COLORLESS)
[2023-06-07 20:08] LABS: Appearance CLEAR (CLEAR); Body Fluid Source CSF; Body Fluid WBC 0 /mm^3; Color of fluid Colorless (COLORLESS)
--- NOTE | 2023-06-07 20:10 | RAD REPORT ---
EXAM DESCRIPTION: CT - Head Brain Wo Cont - 06/07/2023 7:56 pm CLINICAL HISTORY: HEADACHE COMPARISON: Head Brain Wo Cont dated 03/24/2022 TECHNIQUE: Noncontrast head CT images were obtained without IV contrast. Multiplanar reformats were generated and reviewed. All CT scans are performed using dose optimization technique as appropriate and may include automated exposure control or mA/KV adjustment according to patient size. FINDINGS: No intracranial hemorrhage, mass, or edema. Midline structures are unremarkable. Normal ventricular caliber for age. Osborne-white matter differentiation is preserved, without evidence of acute infarct. No abnormal extra- axial fluid collections. Mastoid air cells and visualized portions of the paranasal sinuses are clear. No acute bony findings. IMPRESSION: No evidence of an acute intracranial process.
--- NOTE | 2023-06-07 20:10 | RAD REPORT ---
[facility] DES[facility]07/2023 7:44 pm CLINICAL HISTORY: MALAISE COMPARISON: No comparisons TECHNIQUE: Portable AP view of the chest. FINDINGS: The lungs are clear. No pneumothorax or effusion. The cardiomediastinal contours are unre markable. IMPRESSION: No acute cardiopulmonary process.
--- NOTE | 2023-06-07 20:24 | EDPHYS ---
Physician Documentation [facility] Name: Edith Holcomb Age: 27 yrs Sex: Female : 1995 Arrival Date: 06/07/2023 Time: 17:48 Bed 7 Private MD: ED Physician Angel Rain HPI: 06/07 19:07 This 27 yrs old Female presents to ER via Wheelchair with complaints of sp3 Migraine. 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 Patient denies trauma, known sick contacts, travel history, URI symptoms, chest pain, shortness of breath, rash, abdominal pain, nausea, vomiting, diarrhea, or any other signs or symptoms on ROS at this time.. 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 - Social history:: Smoking status: Patient denies any tobacco usage or history of. ROS: 19:07 Constitutional: Negative for fever, chills, and weight loss, Eyes: Negative for injury, sp3 pain, redness, and discharge, ENT: Negative for injury, pain, and discharge, Cardiovascular: Negative for chest pain, palpitations, and edema, Respiratory: Negative for shortness of breath, cough, wheezing, and pleuritic chest pain, Abdomen/GI: Negative for abdominal pain, nausea, vomiting, diarrhea, and constipation, Back: Negative for injury and pain, MS/Extremity: Negative for injury and deformity, Skin: Negative for injury, rash, and discoloration, Psych: Negative for depression, anxiety, suicide ideation, homicidal ideation, and hallucinations, Allergy/Immunology: Negative for hives, rash, and allergies, Endocrine: Negative for neck swelling, polydipsia, polyuria, polyphagia, and marked weight changes, 19:07 All other systems are negative, Exam: 19:08 Constitutional: This is a well developed, well nourished patient who is awake, alert, sp3 and in no acute distress. Head/Face: Normocephalic, atraumatic. Eyes: Pupils equal round and reactive to light, extra-ocular motions intact. Lids and lashes normal. Conjunctiva and sclera are non-icteric and not injected. Cornea within normal limits. Periorbital areas with no swelling, redness, or edema. ENT: Nares patent. No nasal discharge, no septal abnormalities noted. External auditory canals are clear. Oropharynx with no redness, swelling, or masses, exudates, or evidence of obstruction, uvula midline. Mucous membranes moist. Chest/axilla: Normal chest wall appearance and motion. Nontender with no deformity. No lesions are appreciated. Cardiovascular: Regular rate and rhythm with a normal S1 and S2. No gallops, murmurs, or rubs. Normal PMI, no JVD. No pulse deficits. Respiratory: Lungs have equal breath sounds bilaterally, clear to auscultation and percussion. No rales, rhonchi or wheezes noted. No increased work of breathing, no retractions or nasal flaring. Abdomen/GI: Soft, non-tender, with normal bowel sounds. No distension or tympany. No guarding or rebound. No evidence of tenderness throughout. Back: No spinal tenderness. No costovertebral tenderness. Full range of motion. Skin: Warm, dry with normal turgor. Normal color with no rashes, no lesions, and no evidence of cellulitis. MS/ Extremity: Pulses equal, no cyanosis. Neurovascular intact. Full, normal range of motion. Psych: Awake, alert, with orientation to person, place and time. Behavior, mood, and affect are within normal limits. 19:08 Neck: No meningismus but patient does have stiffness in the neck when she flexes., 19:08 Neuro: Normal neurological exam however patient does have photosensitivity., Vital Signs: 18:05 BP 122 / 76; Pulse 90; bp 19:00 BP 108 / 63; Pulse 85; Resp 16; Pulse Ox 95% ; bp 20:00 BP 112 / 64; Pulse 87; Resp 16; Pulse Ox 99% ; bp 21:19 BP 141 / 65; Pulse 105; Resp 17 S; Pulse Ox 98% on R/A; jw7 22:00 BP 110 / 65; Pulse 102; Resp 16; Pulse Ox 97% on R/A; me1 23:59 BP 132 / 72; Pulse 100; Resp 16; Pulse Ox 96% ; bp Procedures: 19:09 Lumbar puncture procedure note. Patient was consented and risks and benefits explained. sp3 Patient did have L4-L5 fusion. Area was prepped with Betadine and 5 cc of 1% lidocaine was injected. 22-gauge needle was used with single injection to traverse the L5-S1 space and successfully recover approximately 5 mL of spinal fluid spread across 4 tubes. Fluid was grossly clear and there were no complications to the procedure. Needle was removed, Band-Aid applied and patient was told to remain flat. All of this was done in sterile fashion. No complications to report.. MDM: 18:00 Patient medically screened. 7 19:08 Data reviewed: vital signs, nurses notes, lab test result(s), radiologic studies. ED sp3 course: 27-year-old female with headache, neck stiffness and general malaise/fatigue. Differential diagnosis includes bacterial meningitis, viral meningitis, migraine headache, other headache, viral syndrome, among others. I am not highly suspicious for CVA, ICH, sepsis, shock, or any other critical illness. Work-up will include lumbar puncture, CT scan of the head, chest x-ray, laboratory values, viral swabs, UA and general observation. Disposition pending work-up and patient course.. 20:19 ED course: CSF demonstrates [address] scan of the head is normal. Patient does have sp3 leukocytosis with left shift. Flu is negative. Remainder of labs are within normal limits. Gram stain is pending however CSF protein and glucose are also within normal limits. At this point I am not highly suspicious for meningitis bacterial or viral. We will get pain under control and discharge patient home on p.o. Augmentin out of precaution and follow-up to PCP. Patient has infectious disease physician that she will follow-up with.. 06/07 19:03 Order name: Blood Culture Adult (2) sp3 06/07 19:03 Order name: CBC with Diff; Complete Time: 19:57 sp3 06/07 19:03 Order name: CMP; Complete Time: 20:17 sp3 06/07 19:03 Order name: Lactate w/ 2H reflex if indic.; Complete Time: 19:57 sp3 06/07 19:03 Order name: Protime (+inr); Complete Time: 19:57 sp3 06/07 19:03 Order name: Ptt, Activated; Complete Time: 19:57 3 06/07 19:03 Order name: Urinalysis w/ reflexes 3 06/07 19:03 Order name: CSF Cell Count: Tube 4; Complete Time: 20:17 sp3 06/07 19:03 Order name: Csf Culture 3 06/07 19:03 Order name: Csf Total Protein; Complete Time: 19:57 sp3 06/07 19:03 Order name: Csf Glucose; Complete Time: 19:57 3 06/07 19:11 Order name: Flu; Complete Time: 20:17 sp3 06/07 19:11 Order name: SARS-COV-2 RT PCR 3 06/07 19:29 Order name: Body Fluid Cell Count; Complete Time: 20:17 EDMS 06/07 19:03 Order name: CXR XRAY; Complete Time: 20:17 sp3 06/07 19:03 Order name: CT Head Brain wo Cont; Complete Time: 20:17 sp3 06/07 19:03 Order name: Cardiac monitoring; Complete Time: 19:32 sp3 06/07 19:03 Order name: IV Saline Lock - Large Bore; Complete Time: 19:32 sp3 06/07 19:03 Order name: LP Consents; Complete Time: 19:18 sp3 06/07 19:03 Order name: Labs collected and sent; Complete Time: 19:32 3 06/07 19:03 Order name: O2 Sat Monitoring; Complete Time: 19:32 sp3 06/07 19:03 Order name: Vital Signs; Complete Time: 19:32 sp3 Administered Medications: 20:54 Drug: Rocephin IV 2 grams IV at calculated rate once; Given slow IV push per [employer] jw7 instructions Route: IV; Rate: calculated rate; Site: right antecubital; 21:19 Follow up: Response: No adverse reaction; IV Status: Completed infusion; IV Intake: [id number] 21:18 Drug: vancoMYCIN IVPB 1 grams IVPB once over 2 hrs Route: IVPB; Infused Over: 2 hrs; jw7 Site: right antecubital; 06/08 00:00 Follow up: IV Status: Completed infusion; IV Intake: 250ml bp Disposition Summary: 06/07/23 20:24 Discharge Ordered Notes: Location: Home sp3 Condition: Stable sp3 Diagnosis - Headache, leukocytosis sp3 Followup: sp3 - With: Private Physician - When: Upon discharge from the Emergency Department - Reason: Recheck today's complaints Discharge Instructions: - Discharge Summary Sheet sp3 - General Headache Without Cause sp3 Forms: - Medication Reconciliation Form sp3 - Thank You Letter sp3 - Antibiotic Education sp3 - Prescription Opioid Use sp3 - Patient Portal Instructions sp3 - Leadership Thank You Letter sp3 Prescriptions: - Augmentin 875-125 mg Oral Tablet - take 1 tablet ORAL route every 12 hours for 10 days; 20 tablet; Refills: 0, sp3 Product Selection Permitted Signatures: Dispatcher [employer] EDMS Angel Rain MD MD sp3 Zohra Rice RN RN jw7 Snehal Mckeon FNP IMMIGRATION ASSOCIATE 7 [employer] RN RN rs5 Hemant Walker RN bp Corrections: (The following items were deleted from the chart) 06/07 18:09 18:08 PMHx: Bacterial Meningitis (back s-2017); rs5 rs5 20:24 20:19 ED course: CSF demonstrates [address] scan of the head is normal. Patient does sp3 have leukocytosis with left shift. Flu is negative. Remainder of labs are within normal limits. Gram stain is pending however CSF protein and glucose are also within normal limits. At this point I am not highly suspicious for meningitis bacterial or viral. We will get pain under control and discharge patient home on p.o. Augmentin out of precaution and follow-up to PCP.. sp3
--- NOTE | 2023-06-07 20:24 | ER ---
Nurse's Notes [facility] Name: Edith Holcomb Age: 27 yrs Sex: Female : 1995 Arrival Date: 06/07/2023 Time: 17:48 Bed 7 Private MD: Diagnosis: Headache, leukocytosis Presentation: 06/07 18:05 Chief complaint: Patient states: "I'm having pain in my head and neck and I fell like rs5 I'm going to pass out. I often have pain in my head and neck but it's worse today. I have been diagnosed with bacterial meningitis. I also have chronic migraines and I'm feeling short of breath". Coronavirus screen: At this time, the client does not indicate any symptoms associated with coronavirus-19. Ebola Screen: No symptoms or risks identified at this time. Risk Assessment: Do you want to hurt yourself or someone else? Patient reports no desire to harm self or others. Onset of symptoms was June 07, 2023. 18:05 Method Of Arrival: Wheelchair rs5 18:05 Acuity: GIOVANNY 3 rs5 06/08 00:00 Initial Sepsis Screen: Does the patient meet any 2 criteria? No. Patient's initial bp sepsis screen is negative. Does the patient have a suspected source of infection? No. Patient's initial sepsis screen is negative. Triage Assessment: 06/07 19:00 General: Appears in no apparent distress. uncomfortable, Behavior is appropriate for bp age. 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 - Social history:: Smoking status: Patient denies any tobacco usage or history of. Screenin:30 [facility] ED Fall Risk Assessment (Adult) History of falling in the last 3 months, me1 including since admission No falls in past 3 months (0 pts) Confusion or Disorientation No (0 pts) Intoxicated or Sedated No (0 pts) Impaired Gait No (0 pts) Mobility Assist Device Used No (0 pt) Altered Elimination No (0 pt) Score/Fall Risk Level 0 - 2 = Low Risk. Abuse screen: Denies threats or abuse. Nutritional screening: No deficits noted. Tuberculosis screening: No symptoms or risk factors identified. Assessment: 19:30 General: Appears uncomfortable, well groomed, well developed, well nourished, Behavior me1 is calm, cooperative, appropriate for age, flat, quiet, Reports fatigue for she has pain in head and neck often but it is worse today. c/o being weak and lightheaded with movement. c/o tension to neck. c/o nausea. a few hours ago patient started having difficulty verbalizing her thoughts. Pain: Complains of pain in head and neck Pain does not radiate. Pain currently is 10 out of 10 on a pain scale. Quality of pain is described as aching, Pain began 1 day ago. Is continuous, Alleviated by rest, relaxation, Aggravated by increased activity, repositioning, weight bearing. Neuro: Level of Consciousness is awake, alert, obeys commands, Oriented to person, place, time, situation, Appropriate for age. Cardiovascular: Capillary refill < 3 seconds Patient's skin is warm and dry. Respiratory: Airway is patent Respiratory effort is even, unlabored, Respiratory pattern is regular, symmetrical. 20:30 Reassessment: Patient appears in no apparent distress at this time. No changes from jw7 previously documented assessment. Patient and/or family updated on plan of care and expected duration. Pain level reassessed. Patient is alert, oriented x 3, equal unlabored respirations, skin warm/dry/pink. 20:49 General: discharge pending completion of IV antibiotics. jw7 21:19 Reassessment: Patient appears in no apparent distress at this time. No changes from jw7 previously documented assessment. Patient and/or family updated on plan of care and expected duration. Pain level reassessed. Patient is alert, oriented x 3, equal unlabored respirations, skin warm/dry/pink. Vital Signs: 18:05 BP 122 / 76; Pulse 90; bp 19:00 BP 108 / 63; Pulse 85; Resp 16; Pulse Ox 95% ; bp 20:00 BP 112 / 64; Pulse 87; Resp 16; Pulse Ox 99% ; bp 21:19 BP 141 / 65; Pulse 105; Resp 17 S; Pulse Ox 98% on R/A; jw7 22:00 BP 110 / 65; Pulse 102; Resp 16; Pulse Ox 97% on R/A; me1 23:59 BP 132 / 72; Pulse 100; Resp 16; Pulse Ox 96% ; bp ED Course: 17:53 Patient arrived in ED. mg5 18:00 Snehal Mckeon FNP is [facility] jh7 18:00 Angel Rain MD is Attending Physician. jh7 18:04 Angel Rain MD is Attending Physician. sp3 18:08 Triage completed. rs5 18:18 Paula South, SYLVIE is Primary Nurse. me1 19:14 Flu Sent. me1 19:15 Csf Glucose Sent. me1 19:15 Csf Total Protein Sent. me1 19:15 Csf Culture Sent. me1 19:15 CSF Cell Count: Tube 4 Sent. me1 19:20 Inserted saline lock: 20 gauge in right antecubital area, using aseptic technique. jw7 Blood collected. 19:20 Initial lab(s) drawn, by ky, sent to lab. First set of blood cultures drawn by ky. jw7 19:30 No provider procedures requiring assistance completed. me1 19:30 Patient has correct armband on for positive identification. Placed in gown. Bed in low me1 position. Call light in reach. Side rails up X2. Provided Education on: POC. Verbalized understanding. . 19:32 Ptt, Activated Sent. jw7 19:32 Protime (+inr) Sent. jw7 19:33 Lactate w/ 2H reflex if indic. Sent. jw7 19:33 CMP Sent. jw7 19:33 CBC with Diff Sent. jw7 19:35 Second set of blood cultures drawn by me. jw7 19:45 CXR XRAY In Process Unspecified. EDMS 19:58 CT Head Brain wo Cont In Process Unspecified. EDMS 23:59 IV discontinued, intact, bleeding controlled, No redness/swelling at site. Pressure bp dressing applied. Administered Medications: 20:54 Drug: Rocephin IV 2 grams IV at calculated rate once; Given slow IV push per [employer]ar[employer] jw7 instructions Route: IV; Rate: calculated rate; Site: right antecubital; 21:19 Follow up: Response: No adverse reaction; IV Status: Completed infusion; IV Intake: [id number] 21:18 Drug: vancoMYCIN IVPB 1 grams IVPB once over 2 hrs Route: IVPB; Infused Over: 2 hrs; jw7 Site: right antecubital; 06/08 00:00 Follow up: IV Status: Completed infusion; IV Intake: 250ml bp Medication: 06/07 19:30 VIS not applicable for this client. me1 Intake: 21:19 IV: 50ml; Total: 50ml. jw7 06/08 00:00 IV: 250ml; Total: 300ml. bp Outcome: 06/07 20:24 Discharge ordered by MD. sp3 23:59 Discharged to home ambulatory, with family, bp 23:59 Condition: stable 23:59 Discharge instructions given to patient, Instructed on discharge instructions, follow up and referral plans. medication usage, Demonstrated understanding of instructions, follow-up care, medications, Prescriptions given X 1, 06/08 00:09 Patient left the ED. bp Signatures: Dispatcher [employer] EDHemant Aparicio RN RN bp Angel Rain MD MD spZohra Shelton RN RN jw7 Snehal Mckeon FNP FNP [facility] [employer] RN RN rs5 Paula South RN RN me1 Renae Francisco mg5 Corrections: (The following items were deleted from the chart) 06/07 18:09 18:08 PMHx: Bacterial Meningitis (back ); rs5 rs5
[2023-06-07] MEDS ORDERED: NA CHLORIDE 0.9% 50 ML ONE (20:42)
[2023-06-07] MEDS ORDERED: VANCOMYCIN 1 GM/VIAL ONE (20:42)
[2023-06-07] MEDS ORDERED: CEFTRIAXONE 2000 MG/VIAL ONE (20:42)
[2023-06-07] MEDS ORDERED: NA CHLORIDE 0.9% 250 ML ONE (20:43)
[2023-06-07 21:58] LABS: Specific Gravity 1.029 (1.005-1.030); Urine Bacteria None Seen /HPF (<20); Urine Bilirubin NEGATIVE (Negative); Urine Blood Negative (Negative); Urine Clarity Turbid (Clear); Urine Color Yellow (Yellow); Urine Glucose NEGATIVE (Negative); Urine Mucus 3+ /HPF (None Seen); Urine Protein TRACE (Negative); Urine RBC <5 /HPF (None Seen); Urine Urobilinogen Normal (Normal); Urine pH 5.5 (5.0-7.0)
[2023-06-08 00:22] VITALS: BP 132/72; O2SAT 96
== END 2023-06-08 00:09 | disposition home or self-care (01) ==
LOC: ER 17:48
DX: R51.9 Headache, unspecified (principal); D72.829 Elevated white blood cell count, unspecified; Z20.822 Contact with and (suspected) exposure to COVID-19; Z88.5 Allergy status to narcotic agent
CPT/HCPCS: 96365; 87040 ×2; 87070; 85025; 81001; 36415; 89050 ×2; 84157; 85610; 82945; 83605; 85730; 80053; 87635; 87804 ×2; 70450; 71045; 99284; 96366; 62270; J0696; J7050